=== PATIENT | female | born 1965 | race Caucasian/White ===

== ENCOUNTER 2020-08-24 15:17 | Outpatient (REF) | payer OTHER, SELFPAY ==
[2020-08-24 15:57] LABS: MANUAL DIFF FLAG NO
[2020-08-24 16:05] LABS: Basophils Absolute Auto 0.1 X10*3/uL (0.0-0.2); Eosinophils Absolute Auto 0.2 X10*3/uL (0.0-0.4); Eosinophils Percent Auto 2.6 % (0-4); Hematocrit 43.1 % (37-47); Hemoglobin 14.1 g/dl (12.0-16.0); Imm Gran Abs Auto 0.02 X10*3/uL (0.00-0.03); Imm Gran Pct Auto 0.3 % (0.0-0.4); Lymphocytes Absolute Auto 1.8 X10*3/uL (1.2-4.9); Lymphocytes Percent Auto 28.3 % (20-40); Mean Corpuscular HGB Conc 32.7 g/dl (31.0-35.0); Mean Corpuscular Hemoglobin 30.7 pg (27.0-33.0); Mean Corpuscular Volume 93.7 fL (80-98); Mean Platelet Volume 10.4 fL (9.4-12.3); Monocytes Absolute Auto 0.6 X10*3/uL (0.1-1.2); Monocytes Percent Auto 9.8 % (2-11); Neutrophils Absolute Auto 3.6 X10*3/uL (2.0-8.3); Platelet Count 304 X10*3/uL (160-400); Red Cell Distribution Width 12.4 % (11.0-16.0); White Blood Count 6.3 X10*3/uL (4.8-10.8)
[2020-08-24 16:17] LABS: C Reactive Protein 0.48 mg/dL (< or = 0.50)
[2020-08-24 16:46] LABS: TSH reflex Free T4 1.33 mIU/mL (0.32-4.0)
[2020-08-24 16:49] LABS: Erythrocyte Sedimentation Rate 10 MM/HR (0-20)
[2020-08-26 17:21] LABS: Lyme Abs Screen <0.90 index
== END 2020-08-24 15:18 | disposition home or self-care (01) ==
LOC: HO.LAB 15:17
PROVIDERS: PCP Internal Medicine; Visit Provider Internal Medicine
DX: M79.10 Myalgia, unspecified site (principal); F32.9 Major depressive disorder, single episode, unspecified; M25.50 Pain in unspecified joint; E78.2 Mixed hyperlipidemia; L40.9 Psoriasis, unspecified
CPT/HCPCS: 36415; 84443; 85025; 85652; 86140; 86618

== ENCOUNTER 2020-09-24 14:48 | Outpatient (REF) | payer OTHER, SELFPAY ==
--- NOTE | 2020-09-24 14:53 | US_ITS ---
EXAMINATION: US THYROID CLINICAL INFORMATION: Myalgia, unspecified site. COMPARISON: None TECHNIQUE: Linear transducer perry-scale and color Doppler examination with attention to the region of the thyroid. FINDINGS: SIZE: Measurements of the solitary right thyroid lobe and nodules are given in sagittal, anteroposterior and transverse dimensions respectively. Right Thyroid Lobe: 4.0 x 1.9 x 2.0 cm, volume 7.9 mL. Parenchyma: The gland echotexture is homogeneous. Thyroid vascularity is increased. Left Thyroid Lobe: Absent. Isthmus: 0.4 cm in maximum AP dimension. RIGHT THYROID LOBE: No nodules. ISTHMUS: There is 1 nodule seen. 1. Location: Right aspect. Size: 1.1 x 0.6 x 1.0 cm. Nodule characteristics: Heterogeneously hypoechoic with smooth margins. No internal calcification. Intranodular flow present. NODES: Small lymph node without pathologic enlargement noted on the right. US/US thyroid IMPRESSION: Increased vascularity of the right thyroid lobe. Correlate with thyroid function. There is no left lobe seen. Solitary nodule in the thyroid isthmus measuring up to 1.1 cm. Fine-needle aspiration could be considered, otherwise suggest 12-24 month follow-up.
== END 2020-09-24 14:49 | disposition home or self-care (01) ==
LOC: HO.US 14:48
PROVIDERS: PCP Internal Medicine; Visit Provider Internal Medicine
DX: E03.1 Congenital hypothyroidism without goiter (principal); E78.2 Mixed hyperlipidemia; F32.9 Major depressive disorder, single episode, unspecified; M25.50 Pain in unspecified joint; M79.10 Myalgia, unspecified site
CPT/HCPCS: 76536

== ENCOUNTER → 2020-10-07 11:13 | Outpatient (BNVA) | payer OTHER, SELFPAY | PROVIDERS: PCP Internal Medicine; Referring Provider Internal Medicine; Visit Provider Internal Medicine Endocrinology, Diabetes & Metabolism | DX: Z76.89 Persons encountering health services in other specified circumstances (principal) ==

== ENCOUNTER 2020-10-07 12:37 | Outpatient (REF) | payer OTHER, SELFPAY ==
[2020-10-07 14:57] LABS: Free T4 (Free Thyroxine) 1.03 ng/dL (0.71-1.85); Thyroid Stimulating Hormone 1.48 uIU/mL (0.32-4.0)
[2020-10-08 21:37] LABS: Thyroid Peroxidase Antibodies 12 IU/mL (<9)
[2020-10-09 05:03] LABS: Thyroglobulin Antibodies <1 IU/mL (< or = 1)
== END 2020-10-07 12:38 | disposition home or self-care (01) ==
LOC: HO.10HDL 12:37
PROVIDERS: Visit Provider Internal Medicine Endocrinology, Diabetes & Metabolism
DX: E04.1 Nontoxic single thyroid nodule (principal)
CPT/HCPCS: 36415; 84439; 84443; 86376; 86800

== ENCOUNTER 2020-10-23 16:02 | Outpatient (REF) | payer OTHER, SELFPAY ==
--- NOTE | 2020-10-23 | MM_ITS ---
EXAMINATION: MM SCREENING DIGITAL BREAST TOMOSYNTHESIS, BILATERAL CLINICAL INFORMATION: Screening. Asymptomatic. The lifetime risk of breast cancer based on the Tyrer-Cuzick Model is 25%. COMPARISON: Mammography: 07/23/2019, 07/11/2018, 12/14/2017, 05/12/2017 TECHNIQUE: Digital breast tomosynthesis is performed in both the craniocaudal and mediolateral oblique views along with computer-aided detection (CAD). Synthesized 2D images are generated from the tomosynthesis. FINDINGS: There are scattered areas of fibroglandular density (ACR BI-RADS breast composition Category b). Breast tissue composition borders on predominantly fatty. Background stromal densities are stable. There is no interval mass or architectural abnormality. No abnormal calcifications. Skin contours are smooth. No significant changes. MM/MM tomosynthesis screening BI IMPRESSION: No mammographic evidence of malignancy. ASSESSMENT: BI-RADS 1: Negative RECOMMENDATION: 1. Routine annual mammography screening. 2. The lifetime risk of breast cancer based on the Tyrer-Cuzick Model is 25%. Additional annual adjunct screening with breast MRI may be of benefit in women with a risk score of 20% or greater. This patient's information was entered into a reminder system with a target due date for their next mammogram.
== END 2020-10-23 16:03 | disposition home or self-care (01) ==
LOC: HO.MAMMO 16:02
PROVIDERS: PCP Internal Medicine; Visit Provider Internal Medicine
DX: Z12.31 Encounter for screening mammogram for malignant neoplasm of breast (principal)
CPT/HCPCS: 77063; 77067

== ENCOUNTER 2020-12-03 07:24 | Outpatient (REF) | payer OTHER, SELFPAY ==
[2020-12-03 08:55] LABS: HBS Num1 0.67 mIU/mL (0-7.99); ~Hepatitis B Surface Antibody NONREACTIVE (Nonreactive)
--- NOTE | 2020-12-03 09:06 | P.BOP_ITS ---
Brief Operative Note Date of Service: 12/03/20 Pre-op diagnosis: Isthmic nodule Post-op diagnosis: same Procedure: This procedure was explained to the patient. Alternatives, risks and benefits were discussed. Written consent was obtained. After sterile preparation of the skin, fine-needle aspiration biopsy of isthmic thyroid nodule, size 1.1 x 0.6 x 1.0 cm was performed under direct ultrasound guidance to confirm accurate needle placement. Two passes were performed with 27 gauge needles. initial passes were only blood, 3 extra passess were performed with 25 gauge needles. Sample was submitted to cytology, initial cytology reading was adequate. 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 Patient tolerated procedure well. Aftercare instructions were provided. Impression: uncomplicated fine-needle aspiration biopsy of ------ thyroid nodule under direct ultrasound guidance. Surgeon: Theresa Hinds MD Anesthesia: local (Lidocaine 1% 2 ml) Estimated blood loss (mL): 0 Condition: stable Disposition: same day
[2020-12-05 18:52] LABS: TS Negative Control Passed; TS Panel A 0; TS Panel B 0; TS Positive Control Passed; TSpotTB Negative (SeeBelow)
== END 2020-12-03 07:25 | disposition home or self-care (01) ==
LOC: HO.US 07:24
PROVIDERS: PCP Internal Medicine; Referring Provider Internal Medicine; Visit Provider Internal Medicine Endocrinology, Diabetes & Metabolism
DX: Z01.84 Encounter for antibody response examination (principal); Z11.1 Encounter for screening for respiratory tuberculosis; E04.1 Nontoxic single thyroid nodule
CPT/HCPCS: 10005; 36415; 86481; 86706; 88172; 88173; 88177; 88305

== ENCOUNTER → 2020-12-11 09:06 | Outpatient (BNVA) | payer OTHER, SELFPAY | PROVIDERS: PCP Internal Medicine; Visit Provider Internal Medicine Endocrinology, Diabetes & Metabolism ==

== ENCOUNTER 2021-03-22 15:26 | Outpatient (REF) | payer OTHER, SELFPAY ==
--- NOTE | ~2021-03-22 | XR_ITS ---
EXAMINATION: XR FOOT, RIGHT CLINICAL INFORMATION: Pain COMPARISON: None TECHNIQUE: AP, lateral, and oblique views of the right foot. FINDINGS: Bone alignment is normal. No fracture or dislocation is seen. There is mild joint space narrowing at the first MTP joint. Joint spaces are otherwise normal. Soft tissues are normal. XR/XR foot RT min 3V IMPRESSION: Mild joint space narrowing at the first MTP joint.
== END 2021-03-22 15:27 | disposition home or self-care (01) ==
LOC: HO.HMGCX 15:26
PROVIDERS: PCP Internal Medicine; Visit Provider Hospitalist
DX: M79.671 Pain in right foot (principal)
CPT/HCPCS: 73630

== ENCOUNTER → 2021-04-26 07:19 | Outpatient (REF) | payer OTHER, SELFPAY ==
--- NOTE | 2021-04-26 07:24 | CA_ITS ---
Transthoracic Echocardiogram Patient (Last, First, Middle): Pham Vu A Gender: Female Date of : 1965 Age: 55 Procedure Date: 04/26/2021 Procedure Type: Transthoracic Echocardiogram Location: OP Height: 165.1 cm Weight: 86.18 kg BSA: 1.94 m2 Heart Rate: bpm BP: 128 / 84 mmHg Naturopathic Oncology Provider: Referring MD: Jarad Acharya DO Symptoms: R00.2 - Palpitations Study Quality: Good ECG Rhythm: Sinus Conclusions: - The left ventricular systolic function is normal. The visually estimated ejection fraction is between 60-65%. - No obvious valvular pathology seen on this study. Findings Left Ventricle Normal left ventricular cavity size. There is normal left ventricular wall thickness. The left ventricular systolic function is normal. The visually estimated ejection fraction is between 60-65%. There is no evidence of regional wall motion abnormalities. Diastolic function is normal for age. Right Ventricle Normal right ventricular cavity size and systolic function. Atria The left atrium is normal in size. The right atrium is normal in size. Aortic Valve There is a normal trileaflet aortic valve. There is no aortic valve stenosis. There is no aortic valve regurgitation. Mitral Valve The mitral valve appears normal. There is no mitral valve regurgitation. There is no mitral valve stenosis. Pulmonic Valve The pulmonic valve was not well visualized. Tricuspid Valve Normal tricuspid valve structure. There is trace tricuspid valve regurgitation. The pulmonary artery systolic pressure is normal. Great Vessels The aortic annulus, sinuses of valsalva, asc aorta, and aortic arch are normal in size. Venous The inferior vena cava is mildly dilated and collapses greater than 50% with inspiration. Pericardium/Pleural There is no evidence of pericardial effusion. Prior Study Comparison No significant change compared to prior study dated: 08/25/2004. Recommendations, Care & Conclusions No obvious valvular pathology seen on this study. Measurements 2D Linear Measurements RVIDd: 2.89 RVIDd Index: 1.49 IVSd: 0.99 0.6-0.9/0.6-1.0 cm LVIDd: 5.01 3.9-5.3/4.2-5.9 cm LVIDd Index: 2.58 2.4-3.2/2.2-3.1 cm/m2 LVIDs: 2.77 2.0-3.6 cm LVPWd: 0.88 0.7-1.1 cm Ao Root: 2.60 2.1-3.5 cm LA Diam: 4.00 2.7-3.8/3.0-4.0 cm LAIDs Index: 2.06 1.5-2.3 cm/m2 LV Mass: 208.94 67-162/88-224 g LV Mass Index: 107.70 43-95/49-115 g/m2 LVOT Diam: 2.10 3.0+(-)1.3 cm 2D Systolic Function EF 4C: 64.10 >55% EF 2C: 70.30 >55% EF BiP: 66.30 >55% Mitral Valve MV Pk E: 0.59 MV PK A: 0.57 MV Decel Time: 295.00 E/A: 1.00 E'Lateral: 10.20 E'Medial: 8.59 E/E' Med: 6.80 E/E' Lat: 5.80 Aortic Valve AoV Pk Nicholas: 1.13 AoV Mn Nicholas: 0.76 AoV VTI: 0.22 AoV Pk Grad: 5.00 Aov Mn Grad: 3.00 BRET Cont.VTI: 2.78 LVOT LVOT Pk Nicholas: 0.93 LVOT Mn Nicholas: 0.61 LVOT VTI: 0.18 LVOT Pk Grad: 3.00 LVOT Mn Grad: 2.00 LVOT Diam: 2.10 LVOT Area: 3.46 Diastolic Function MV Pk E: 0.59 MV Pk A: 0.57 E/A: 1.00 E'Medial: 8.59 E/E' Med: 6.80 E' Laterial: 10.20 E/E' Lat: 5.80 Tricuspid Valve TR Pk Nicholas: 2.42 TR Pk Grad: 23.00 RA Press: 3.00 RVSP: 26.00 Great Vessels Aorta Ao Root-2D: 2.60 2.0-3.7 cm Ao Asc: 3.10 2.1-3.4 cm Ao Arch: 2.80 Updated in Other Vendor System with Status of Final Paul Patel MD electronically signed on 04/26/2021 9:15:44 AM with status of Final
--- NOTE | 2021-04-26 08:00 | ECG_ITS ---
Hook-up date: 2021-04-26 08:15:00 Duration: 47:36:00 Test Indications: PALPITATIONS Medications: [id number] QRS complexes 8 Ventricular ectopics which represent <1 % of total QRS comp. 41 Supraventricular ectopics which represent <1 % of total QRS comp. * Paced QRS complexs which represent % of total QRS comp. VENTRICULAR ECTOPY 8 Isolated 0 Bigeminal Cycles 0 Couplets 0 Runs 0 Beats in Runs * Beats LONGEST at * BPM at :: -- * Beats FASTEST at * BPM at :: -- SUPRAVENTRICULAR ECTOPY 38 Isolated 0 Couplets 1 Runs 3 Beats in Runs 3 Beats LONGEST at 192 BPM at 16:28:38 2021-04-26 3 Beats FASTEST at 192 BPM at 16:28:38 2021-04-26 HEART RATES 49 MIN at 04:35:54 2021-04-27 75 AVG 130 MAX at 07:41:05 2021-04-27 LONGEST RR 1.2400 secs at 04:35:51 2021-04-27 S-T LEVELS Channel 1 - 128 mm at 08:15:00 2021-04-26 - 128 mm at 08:15:00 2021-04-26 Channel 2 - 128 mm at 08:15:00 2021-04-26 - 128 mm at 08:15:00 2021-04-26 Channel 3 - 128 mm at 02:73:41 -- - 128 mm at 02:73:41 Basic rhythm Normal sinus rhythm No long pause or profound bradycardia Rare ectopics Patient reported events were not marked but no significant arrhythmias noted at the time reported Referred By: Jarad Acharya Overread By: RANJIT LOZANO MD
== END ==
LOC: HO.CARD 07:19
PROVIDERS: Visit Provider Hospitalist
DX: R00.2 Palpitations (principal)
CPT/HCPCS: 93225; 93226; 93306

== ENCOUNTER 2021-11-01 14:28 | Outpatient (REF) | payer OTHER, SELFPAY | END 2021-11-01 14:29 | disposition home or self-care (01) | LOC: HO.LNP 14:28 | PROVIDERS: Visit Provider Physician Assistant Medical | DX: Z20.822 Contact with and (suspected) exposure to COVID-19 (principal); J01.00 Acute maxillary sinusitis, unspecified; J32.1 Chronic frontal sinusitis | CPT/HCPCS: U0003; U0005 ==

== ENCOUNTER 2021-12-01 15:28 | Outpatient (REF) | payer OTHER, SELFPAY ==
--- NOTE | ~2021-12-01 | MM_ITS ---
EXAMINATION: MM SCREENING DIGITAL BREAST TOMOSYNTHESIS, BILATERAL CLINICAL INFORMATION: Screening. Asymptomatic. The lifetime risk of breast cancer based on the Tyrer-Cuzick Model is 16%. COMPARISON: Mammography: 10/23/2020, 07/23/2019, 07/11/2020 TECHNIQUE: Digital breast tomosynthesis is performed in both the craniocaudal and mediolateral oblique views along with computer-aided detection (CAD). Synthesized 2D images are generated from the tomosynthesis. FINDINGS: There are scattered areas of fibroglandular density (ACR BI-RADS breast composition Category b). There are no significant masses, abnormal calcifications, or other abnormalities. Parenchymal pattern is similar to prior studies. There is no developing density or architectural abnormality. The axilla and skin contours are unremarkable. No significant changes. MM/MM tomosynthesis screening BI IMPRESSION: No mammographic evidence of malignancy. ASSESSMENT: BI-RADS 1: Negative RECOMMENDATION: Routine annual mammography screening. This patient's information was entered into a reminder system with a target due date for their next mammogram.
== END 2021-12-01 15:29 | disposition home or self-care (01) ==
LOC: HO.MAMMO 15:28
PROVIDERS: Visit Provider Internal Medicine
DX: Z12.31 Encounter for screening mammogram for malignant neoplasm of breast (principal)
CPT/HCPCS: 77063; 77067

== ENCOUNTER 2022-01-27 08:00 | Outpatient (REF) | payer OTHER, SELFPAY ==
[2022-01-27 09:12] LABS: Anion Gap 15 (12-20); Blood Urea Nitrogen 16 mg/dL (9-16); Calcium 9.9 mg/dL (8.4-10.2); Carbon Dioxide 23 mmol/L (22-29); Chloride 107 mmol/L (96-108); Cholesterol 235 mg/dL; Estimated Glomerular Filt Rate > 60; Glucose Fasting 89 mg/dL (60-99); HDL Cholesterol 73 mg/dL; LDL Cholesterol Calculated 147 mg/dl; Potassium 4.7 mmol/L (3.3-5.1); Sodium 140 mmol/L (135-145); Triglycerides 79 mg/dL
[2022-01-27 09:37] LABS: Free T4 (Free Thyroxine) 0.91 ng/dL (0.71-1.85); Thyroid Stimulating Hormone 2.13 uIU/mL (0.32-4.0)
[2022-01-27 15:00] LABS: Vitamin D 25-OH Total 23.3 ng/mL (>30)
[2022-01-28 09:20] LABS: Thyroid Peroxidase Antibodies 13 IU/mL (<9)
== END 2022-01-27 08:01 | disposition home or self-care (01) ==
LOC: HO.LAB 08:00
PROVIDERS: PCP Internal Medicine; Visit Provider Internal Medicine
DX: Z00.01 Encounter for general adult medical examination with abnormal findings (principal); I10 Essential (primary) hypertension; E78.5 Hyperlipidemia, unspecified; E04.1 Nontoxic single thyroid nodule; E06.3 Autoimmune thyroiditis; Z78.0 Asymptomatic menopausal state
CPT/HCPCS: 36415; 80048; 80061; 82306; 84439; 84443; 86376

== ENCOUNTER 2022-04-15 07:35 | Outpatient (REF) | payer OTHER, SELFPAY ==
[2022-04-15 08:45] LABS: Alanine Aminotransferase 42 U/L (0-31); Anion Gap 15 (12-20); Aspartate Amino Transferase 26 U/L (5-31); Blood Urea Nitrogen 17 mg/dL (9-16); Calcium 10.2 mg/dL (8.4-10.2); Carbon Dioxide 24 mmol/L (22-29); Chloride 105 mmol/L (96-108); Estimated Glomerular Filt Rate > 60; Glucose Fasting 95 mg/dL (60-99); Potassium 4.5 mmol/L (3.3-5.1); Sodium 139 mmol/L (135-145)
[2022-04-15 09:03] LABS: Free T4 (Free Thyroxine) 0.97 ng/dL (0.71-1.85)
[2022-04-15 09:06] LABS: Thyroid Stimulating Hormone 2.35 uIU/mL (0.32-4.0); Vitamin D 25-OH Total 74.8 ng/mL (>30)
== END 2022-04-15 07:36 | disposition home or self-care (01) ==
LOC: HO.LAB 07:35
PROVIDERS: Internal Medicine Endocrinology, Diabetes & Metabolism; PCP Internal Medicine; Visit Provider Internal Medicine
DX: E55.9 Vitamin D deficiency, unspecified (principal); R74.8 Abnormal levels of other serum enzymes; I10 Essential (primary) hypertension; E04.1 Nontoxic single thyroid nodule
CPT/HCPCS: 36415; 80048; 82306; 84439; 84443; 84450; 84460

== ENCOUNTER 2022-05-31 12:59 | Outpatient (REF) | payer OTHER, SELFPAY ==
--- NOTE | ~2022-05-31 | US_ITS ---
EXAMINATION: US THYROID CLINICAL INFORMATION: Nontoxic multinodular goiter. COMPARISON: Ultrasound-guided thyroid biopsy 12/03/2020. Thyroid ultrasound 09/24/2020. TECHNIQUE: Linear transducer grayscale and color Doppler examination with attention to the region of the thyroid. FINDINGS: SIZE: Measurements of the thyroid lobes and nodules are given in sagittal, anteroposterior and transverse dimensions respectively. Right Thyroid Lobe: 4.2 x 2.0 x 1.5 cm, volume 6.6 mL. Previously 4.0 x 1.9 x 2.0 cm, volume 7.9 mL. Parenchyma: The gland echotexture is homogeneous. Thyroid vascularity is normal. Left Thyroid Lobe: Absent. Isthmus: 0.4 cm in maximum AP dimension. Previously 0.4 cm. Estimated total number of nodules greater than or equal to 1 cm: 0. [employer] nodules are described as follows: 1. Location: Isthmus. Size: 0.8 x 0.5 x 0.8 cm, volume 0.17 mL. Previously: 1.1 x 0.6 x 1.0 cm, volume 0.35 mL. Nodule characteristics: Composition: Mixed cystic and solid (1). Echogenicity: Hyperechoic (1). Shape: Not taller than wide (0). Margins: Smooth (0). Echogenic Foci: None (0). ACR TI-RADS total points: 2 ACR TI-RADS category: 2 Significant change in size (>/= 20% in 2 dimensions and minimal increase of 2 mm or 50% or greater increase in volume): No Change in features: No Change in ACR TI-RADS risk category: No NODES: No lymphadenopathy is seen in the tissue surrounding the thyroid gland. US/US thyroid IMPRESSION: Solitary thyroid nodule which was previously biopsied. This appears somewhat decreased in size from prior. No specific follow-up recommended based on this imaging alone. Correlate with previous biopsy results. No new nodules are seen. ACR TI-RADS RECOMMENDATION REFERENCE: Ultrasound-guided fine-needle aspiration, followup ultrasound, no further follow up. * TR1 (0 point) and TR 2 (2 points): No FNA or follow up * TR3 (3 points): FNA if more than or equal to 2.5 cm in maximum dimension, followup ultrasound in 1, 3 and 5 years if 1.5 to 2.4 cm in maximum dimension. * TR4 (4-6 points): FNA if more than or equal to 1.5 cm in maximum dimension, followup ultrasound in 1, 2, 3 and 5 years if 1 to 1.4 cm in maximum dimension. * TR5 (more than or equal to 7 points): FNA if more than or equal to 1 cm in maximum dimension, followup ultrasound every year for 5 years if 0.5 to 0.9 cm in maximum dimension. * TR3, TR4 or TR5 nodules that are below the size threshold for follow up receive no follow up.
== END 2022-05-31 13:00 | disposition home or self-care (01) ==
LOC: HO.HMGCX 12:59
PROVIDERS: Visit Provider Internal Medicine Endocrinology, Diabetes & Metabolism
DX: E04.2 Nontoxic multinodular goiter (principal)
CPT/HCPCS: 76536

== ENCOUNTER 2022-06-15 13:04 | Outpatient (REF) | payer OTHER, SELFPAY ==
--- NOTE | ~2022-06-15 | XR_ITS ---
EXAMINATION: XR FOOT, LEFT CLINICAL INFORMATION: M79.675 - Pain in left toe(s) COMPARISON: None TECHNIQUE: AP, lateral, and oblique views of the left foot. FINDINGS: No fracture, dislocation, destructive process. Normal bony mineralization. The subtalar joint appears normal. The retrocalcaneal recess is preserved. There is moderate plantar calcaneal spur. Mild spurring is also present at the posterior superior tarsal navicular. There are mild degenerative changes first MTP. No erosive change or para-articular mineralization. The interphalangeal joints are unremarkable. XR/XR foot LT min 3V IMPRESSION: -No acute or healing fracture, dislocation, destructive process. -Plantar calcaneal spur. Dorsal spurring tarsal navicular. -Mild osteoarthritic changes first MTP.
== END 2022-06-15 13:05 | disposition home or self-care (01) ==
LOC: HO.HMGCX 13:04
PROVIDERS: PCP Internal Medicine; Visit Provider Physician Assistant
DX: M79.675 Pain in left toe(s) (principal)
CPT/HCPCS: 73630

== ENCOUNTER 2022-12-07 15:42 | Outpatient (REF) | payer OTHER, SELFPAY ==
--- NOTE | ~2022-12-07 | MM_ITS ---
EXAMINATION: MM SCREENING DIGITAL BREAST TOMOSYNTHESIS, BILATERAL CLINICAL INFORMATION: Screening. Asymptomatic. The lifetime risk of breast cancer based on the Tyrer-Cuzick Model is 19.5%. COMPARISON: Mammography: December 01, 2021 and studies dating back to April 14, 2016 TECHNIQUE: Digital breast tomosynthesis is performed in both the craniocaudal and mediolateral oblique views along with computer-aided detection (CAD). Synthesized 2D images are generated from the tomosynthesis. FINDINGS: The breasts are almost entirely fatty (ACR BI-RADS breast composition Category a). There are no significant masses, abnormal calcifications, or other abnormalities. MM/MM tomosynthesis screening BI IMPRESSION: No significant changes from prior exam. ASSESSMENT: BI-RADS 1: Negative RECOMMENDATION: Routine annual mammography screening. This patient's information was entered into a reminder system with a target due date for their next mammogram.
== END 2022-12-07 15:43 | disposition home or self-care (01) ==
LOC: HO.MAMMO 15:42
PROVIDERS: PCP Internal Medicine; Visit Provider Internal Medicine
DX: Z12.31 Encounter for screening mammogram for malignant neoplasm of breast (principal)
CPT/HCPCS: 77063; 77067

== ENCOUNTER 2023-02-04 09:47 | Outpatient (REF) | payer OTHER, SELFPAY ==
[2023-02-04 11:27] LABS: Alanine Aminotransferase 31 U/L (0-31); Anion Gap 11 (12-20); Aspartate Amino Transferase 20 U/L (5-31); Blood Urea Nitrogen 18 mg/dL (9-16); Calcium 9.3 mg/dL (8.4-10.2); Carbon Dioxide 26 mmol/L (22-29); Chloride 110 mmol/L (96-108); Cholesterol 223 mg/dL; Estimated Glomerular Filt Rate > 60; Glucose Fasting 92 mg/dL (60-99); HDL Cholesterol 62 mg/dL; LDL Cholesterol Calculated 143 mg/dl; Potassium 4.3 mmol/L (3.3-5.1); Sodium 143 mmol/L (135-145); Triglycerides 94 mg/dL
[2023-02-04 11:41] LABS: Free T4 (Free Thyroxine) 0.96 ng/dL (0.71-1.85); Thyroid Stimulating Hormone 1.45 uIU/mL (0.32-4.0)
== END 2023-02-04 09:48 | disposition home or self-care (01) ==
LOC: HO.LAB 09:47
PROVIDERS: PCP Internal Medicine; Visit Provider Internal Medicine
DX: E04.1 Nontoxic single thyroid nodule (principal); E06.3 Autoimmune thyroiditis; E66.9 Obesity, unspecified; E78.5 Hyperlipidemia, unspecified; I10 Essential (primary) hypertension; E03.9 Hypothyroidism, unspecified; Z78.0 Asymptomatic menopausal state
CPT/HCPCS: 36415; 80048; 80061; 82306; 84439; 84443; 84450; 84460

== ENCOUNTER 2023-02-23 08:49 | Outpatient (REF) | payer OTHER, SELFPAY ==
--- NOTE | ~2023-02-23 | US_ITS ---
EXAMINATION: US ABDOMEN COMPLETE CLINICAL INFORMATION: Right upper quadrant pain. COMPARISON: Ultrasound abdomen complete 08/31/2018. TECHNIQUE: Real-time imaging of the abdominal viscera. FINDINGS: PANCREAS: Normal. ABDOMINAL AORTA: The proximal, mid, and distal segments are normal in caliber. INFERIOR VENA CAVA: Visualized portions are normal. LIVER: The liver is normal in size. The liver contour is normal. Increased echogenicity. No focal hepatic lesion. There is no intrahepatic biliary duct dilatation seen. GALLBLADDER: Surgically absent. COMMON BILE DUCT: Normal in caliber measuring 0.6 cm in diameter. RIGHT KIDNEY: Normal. No hydronephrosis. No renal calculi or focal parenchymal lesions. The kidney measures 11.5 cm in maximum dimension. LEFT KIDNEY: Normal. No hydronephrosis. No renal calculi or focal parenchymal lesions. The kidney measures 10.4 cm in maximum dimension. SPLEEN: Normal. The spleen measures 10.9 cm in maximum dimension. FREE FLUID: None. US/US abdomen complete IMPRESSION: 1. Increased echogenicity of the liver is nonspecific and could be seen in the setting of hepatic steatosis or hepatocellular disease. Correlate with liver function tests. 2. Status post cholecystectomy.
== END 2023-02-23 08:50 | disposition home or self-care (01) ==
LOC: HO.HMGCX 08:49
PROVIDERS: PCP Internal Medicine; Visit Provider Internal Medicine
DX: R10.11 Right upper quadrant pain (principal)
CPT/HCPCS: 76700

== ENCOUNTER 2023-11-03 08:34 | Outpatient (AMB) | payer OTHER, SELFPAY ==
[2023-11-03 08:33] VITALS: BP 120/82; PULSE 69; TEMP 36.3; O2SAT 97; BMI 33.8
--- NOTE | 2023-11-03 08:33 | MHC.OFFWIV ---
Intake Vital Signs 11/03/23 08:33 Height 5 ft 4 in Weight 197 lb BMI 33.8 BP 120/82 Blood Pressure Location Lt brachial Position Sitting Pulse 69 Pulse Source Pulse Oximeter Temp 97.3 F Temp Source Temporal Artery Scan Pulse Oximetry (%) 97 Oxygen Delivery Method Room Air Intake Visit Reasons: EP sinus infection/pressure [id number] Intake Note: pt is here today for sinus infection pressure started last monday Patient Tobacco Use Status: Never used Tobacco Allergies kiwi [KIWI] Allergy (Unknown, Verified 11/03/23 08:47) SHORTNESS OF BREATH Penicillins [PENICILLINS] Allergy (Unknown, Verified 11/03/23 08:47) RASH scallops [SCALLOPS] Allergy (Unknown, Verified 11/03/23 08:47) SHORTNESS OF BREATH Sulfa (Sulfonamide Antibiotics) [Sulfa(Sulfonamide Antibiotics)] Allergy (Unknown, Verified 11/03/23 08:47) UNKNOWN, rash, rash Do you need a note to return to daycare/school/sports/work: Yes HPI HPI Comments History of Present Illness Details Sick for over a week Started with URI symptoms She said not resolving Complaint is nasal ongestion, sinus pressure and bilateral ear blockage Pain in sinuses is 3/10 She has tried OTC medicines without relief She had minimal relief with meds Uses allergy shots which helps with her sinus issues but not this time COVId test x 2 at home negative COugh with some phlegm No fever or chills PFSH Medical History (Updated 11/03/23 @ 09:02 by Niya Chance PA-C) Arthralgia Rosacea Dyslipidemia Essential hypertension Elevated liver enzymes Greater trochanteric bursitis of right hip Gastritis History of postmenopausal bleeding Menopause Dimitry's disease Screening-pulmonary TB Immunity status testing Thyroid nodule Chronic pansinusitis Obesity Atrophic vaginitis Migraine Syrinx of spinal cord Meningioma 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 Myalgia Pain, joint, multiple sites COVID-19 virus infection Nephrolithiasis Mixed hyperlipidemia Psoriasis of scalp Surgical History Hx laparoscopic cholecystectomy Family History Father Brain hemangioma Mother Hereditary breast and ovarian cancer syndrome associated with mutation in BRCA2 gene AAA (abdominal aortic aneurysm) Maternal Grandmother Breast cancer Paternal Grandfather Throat cancer Paternal Grandmother CVA (cerebral vascular accident) Brother Multiple sclerosis HTN (hypertension) Social History Housing: House Alcohol intake: never Patient Tobacco Use Status: Never used Tobacco e-Cigarette/Vaping Use: Never Used Second Hand Smoke Exposure: No Current occupational status: employed 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 [employer] Current occupational exposures/hazards: No Cognitive needs: No Hearing needs: No Vision needs: Yes Review of Systems Const Denies body aches, Denies chills, Reports fatigue and Denies fever(s) Eyes Denies blurry vision ENT Reports otalgia, Reports nasal congestion, Reports nasal discharge, Reports sinus pain, Reports sinus pressure, Denies sore throat and Denies throat swelling Card Denies chest pain and Denies dyspnea Resp Reports chest congestion, Reports cough and Denies dyspnea Endo Reports fatigue Aller/Immun Denies throat swelling Physical Exam Vital Signs: Last Vital Signs Temp 97.3 F 11/03/23 08:33 Pulse 69 11/03/23 08:33 BP 120/82 11/03/23 08:33 Pulse Ox 97 11/03/23 08:33 Oxygen Delivery Method Room Air 11/03/23 08:33 BMI result Body Mass Index 33.8 General: Non-toxic, NAD. Speaking full sentences. Skin: Warm dry throughout Eye: EOMI HENT: Airway patent. Uvula midline. No pharyngeal erythema or edema. No FOREIGN LANGUAGES DEPARTMENT CHAIR. Bilateral canals clear. TM non-erythematous, non-bulging. + fluid behind bilateral TMs, worse on L than R. No TM perforation or hemotympanum noted. Lymph: No lymphdenopathy Respiratory: CTA bilaterally. No wheezes, rales or rhonchi Cardiac: RRR. No murmur MSK: Full ROM extremities. Neurology: A/O. No aphasia or facial droop. Gait without abnormality Psych: Good mood and affect Assessment & Plan Assessment & Plan (1) Sinusitis: Code(s): J32.9 - Chronic sinusitis, unspecified Qualifiers: Sinusitis location: unspecified location Chronicity: acute Recurrence: non-recurrent Qualified Code(s): J01.90 - Acute sinusitis, unspecified Plan: Patient seen and evaluated. Doxycycline and nasal steroid for symptoms F/U with PCP Lungs CTA Patient gave verbal understanding and had no additional questions or concerns at time of discharge All questions answered Medications: New doxycycline monohydrate 100 mg PO BID 14 caps 0RF J32.9 - Chronic sinusitis, unspecified ipratropium bromide administer into each nostril 2 sprays intranasal BID-TID PRN 30 mL 0RF allergy symptoms J32.9 - Chronic sinusitis, unspecified Coding Level of Care Code Est Pt Level 3 (70398) Diagnoses Acute non-recurrent sinusitis, unspecified location J01.90 Sinusitis location: unspecified location Chronicity: acute Recurrence: non-recurrent
== END 2023-11-03 09:13 | disposition home or self-care (01) ==
PROVIDERS: PCP Internal Medicine; Visit Provider Physician Assistant
DX: J01.90 Acute sinusitis, unspecified (principal)
CPT/HCPCS: 99213

== ENCOUNTER 2023-11-29 08:04 | Outpatient (AMB) | payer OTHER, SELFPAY ==
[2023-11-29 08:06] VITALS: BP 122/78; PULSE 78; TEMP 37.1; O2SAT 98; BMI 32.8
--- NOTE | 2023-11-29 08:06 | MHC.OFFWIV ---
Intake Vital Signs 11/29/23 08:06 Height 5 ft 4 in Weight 191 lb BMI 32.8 BP 122/78 Blood Pressure Location Lt brachial Position Sitting Pulse 78 Pulse Source Pulse Oximeter Temp 98.8 F Temp Source Oral Pulse Oximetry (%) 98 Intake Visit Reasons: EP Sore Throat (masked) Intake Note: pt is here for c.o sore throat for a few days, states shes had neg covid test at home Patient Tobacco Use Status: Never used Tobacco Allergies kiwi [KIWI] Allergy (Unknown, Verified 11/29/23 08:39) SHORTNESS OF BREATH Penicillins [PENICILLINS] Allergy (Unknown, Verified 11/29/23 08:39) RASH scallops [SCALLOPS] Allergy (Unknown, Verified 11/29/23 08:39) SHORTNESS OF BREATH Sulfa (Sulfonamide Antibiotics) [Sulfa(Sulfonamide Antibiotics)] Allergy (Unknown, Verified 11/29/23 08:39) UNKNOWN, rash, rash Medication List - Last Reconciled 11/29/23 by EVELYN Mcgee-TYESHA cetirizine (Zyrtec) 10 mg PO DAILY PRN cholecalciferol (vitamin D3) 25 mcg PO DAILY doxycycline hyclate 100 mg PO BID 7 days duloxetine 20 mg PO DAILY estradiol 0.01%(0.1mg/gram) 1 g vaginal 2XW ibuprofen 800 mg PO TID ipratropium bromide 2 sprays intranasal BID-TID PRN lisinopril 5 mg PO DAILY omeprazole 20 mg PO DAILY Do you need a note to return to daycare/school/sports/work: Yes HPI HPI Comments History of Present Illness Details Here today with complaints of sore throat since Monday. Reports initially started as a sore throat headache and bilat ear pain. Since onset symptoms have become worse. Exposed to sick contacts at work. Does note that she was treated with doxycycline about 3 weeks ago for a sinus infection. Although symptoms did not improve she does report some bloody nasal drainage. Using [id number]-[id number] analgesics to help with pain with some relief. 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 Myalgia Pain, joint, multiple sites COVID-19 virus infection Nephrolithiasis Mixed hyperlipidemia Psoriasis of scalp Surgical History Hx laparoscopic cholecystectomy Family History Father Brain hemangioma Mother Hereditary breast and ovarian cancer syndrome associated with mutation in BRCA2 gene AAA (abdominal aortic aneurysm) Maternal Grandmother Breast cancer Paternal Grandfather Throat cancer Paternal Grandmother CVA (cerebral vascular accident) Brother Multiple sclerosis HTN (hypertension) Social History Housing: House Alcohol intake: never Patient Tobacco Use Status: Never used Tobacco e-Cigarette/Vaping Use: Never Used Second Hand Smoke Exposure: No Current occupational status: employed 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 [employer] Current occupational exposures/hazards: No Cognitive needs: No Hearing needs: No Vision needs: Yes Review of Systems Const All systems reviewed & are unremarkable except as noted in HPI and below Physical Exam Vital Signs: Last Vital Signs Temp 98.8 F 11/29/23 08:06 Pulse 78 11/29/23 08:06 BP 122/78 11/29/23 08:06 Pulse Ox 98 11/29/23 08:06 BMI result Body Mass Index 32.8 Const Other: Awake alert mildly ill-appearing Conjunctiva mildly injected TM intact with serous effusions bilat worse on the left Purulent drainage bilat nares, no sinus tenderness with palpation Exudative pharyngitis uvula midline able to manage secretions Regular rate rhythm Lung sounds clear bilat Results AMB Rapid Strep AMB Rapid Strep Negative Last Edit by Tien Huertas CMA on 11/29/23 08:33 Assessment & Plan Assessment & Plan (1) Pharyngitis: Code(s): J02.9 - Acute pharyngitis, unspecified Qualifiers: Pharyngitis/tonsillitis etiology: streptococcus Qualified Code(s): J02.0 - Streptococcal pharyngitis Plan: . (2) Sinusitis: Code(s): J32.9 - Chronic sinusitis, unspecified Qualifiers: Sinusitis location: unspecified location Chronicity: acute Recurrence: recurrent Qualified Code(s): J01.91 - Acute recurrent sinusitis, unspecified Plan: . Plan Despite negative strep screen today, given exam we will treat with doxycycline. Okay to use kihv-oeg-[id number] analgesics for pain. Orders: Orders AMB Rapid Strep Screen Today Z13.9 - Encounter for screening, unspecified Medications: New doxycycline hyclate 100 mg PO BID 7 days 14 caps 0RF Coding Level of Care Code Est Pt Level 3 (80489) Diagnoses Pharyngitis due to Streptococcus species J02.0 Pharyngitis/tonsillitis etiology: streptococcus Acute recurrent sinusitis, unspecified location J01.91 Sinusitis location: unspecified location Chronicity: acute Recurrence: recurrent
== END 2023-11-29 08:51 | disposition home or self-care (01) ==
PROVIDERS: PCP Internal Medicine; Visit Provider Nurse Practitioner Family
DX: J02.0 Streptococcal pharyngitis (principal); J01.91 Acute recurrent sinusitis, unspecified; J02.9 Acute pharyngitis, unspecified
CPT/HCPCS: 87880; 99213

== ENCOUNTER 2023-12-15 | Outpatient (REF) | payer OTHER, SELFPAY ==
[2023-12-15 22:09] LABS: Influenza A PCR POSITIVE (Negative); Influenza B PCR NEGATIVE (Negative); Resp Syncy Virus RNA Qual PCR NEGATIVE (Negative); SARS COV2 PCR INHOUSE NEGATIVE (Negative)
== END 2023-12-15 00:01 | disposition home or self-care (01) ==
LOC: HO.LNP
PROVIDERS: Visit Provider Nurse Practitioner Family
DX: Z11.52 Encounter for screening for COVID-19 (principal); Z20.822 Contact with and (suspected) exposure to COVID-19; R68.89 Other general symptoms and signs
CPT/HCPCS: 0241U

== ENCOUNTER 2023-12-15 15:18 | Outpatient (AMB) | payer OTHER, SELFPAY ==
--- NOTE | 2023-12-15 15:24 | A.OFFPC_ITS ---
Vital Signs 12/15/23 15:26 Height 5 ft 4 in Weight 193 lb 6 oz BMI 33.2 BP 112/62 Blood Pressure Location Rt brachial Position Sitting Pulse 92 Pulse Source Pulse Oximeter Pulse Oximetry (%) 97 Oxygen Delivery Method Room Air Intake Visit Reasons: DAVID from [facility] Intake Note: Patient is here today for transfer of care from [facility]. Complaint of cough and sinus issues Global Consumer [employer] Vice President Required: No Android Ui Developer: Not Required per policy Accompanied by: Self / Same As Patient Allergies kiwi [KIWI] Allergy (Unknown, Verified 12/15/23 15:43) SHORTNESS OF BREATH Penicillins [PENICILLINS] Allergy (Unknown, Verified 12/15/23 15:43) RASH scallops [SCALLOPS] Allergy (Unknown, Verified 12/15/23 15:43) SHORTNESS OF BREATH Sulfa (Sulfonamide Antibiotics) [Sulfa(Sulfonamide Antibiotics)] Allergy (Unknown, Verified 12/15/23 15:43) UNKNOWN, rash, rash Medication List - Last Reconciled 12/15/23 by EVELYN Mcgee- cholecalciferol (vitamin D3) 25 mcg PO DAILY duloxetine 20 mg PO DAILY estradiol 0.01%(0.1mg/gram) 1 g vaginal 2XW ibuprofen 800 mg PO TID ipratropium bromide 2 sprays intranasal BID-TID PRN lisinopril 5 mg PO DAILY omeprazole 20 mg PO DAILY Tobacco use date assessed: 12/15/23 Dental Screening Dental Screen Date: 12/15/23 Did you have a dental visit in the last 12 months?: Yes Did you have a dental problem in the last 6 months where you did not have access to dental care?: No Was dental information given to patient?: Patient has dentist HPI HPI Comments History of Present Illness Details 58-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 ENT active Orthopedics - no longer retail planner due in February 2024 Neurosurgeon - Maria Del Rosario Chopra Karthik (retired), active w/ doc in same group, last visit 2 months ago. Visual vivar [id number], MRI annually. Optho - needs [facility]. [place]; nothing at [facility]. made aware of [facility]. Allergy immunology for allergy shots Health maintenance Colonoscopy 2017 Dr. Cuello with hyperplastic polyp, repeat 10 years (2027) Mammogram due; need to r/s DEXA - 12/19/2017 Vaccines - due for Shingles; COVID x 3, Flu UTD, Tdap. Here today with URI symptoms. Wann better for 1 week after last round of doxy given for strep throat Then developed a cough, tickle in throat ff'd by headache, blocked ears, sinus pressures. No bloody drainage from nose like last time. Throat is not sore like last time. 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 Sx were well controlled. However over the last few months she is noticed uptake in her symptoms. Despite the PHQ being a for the depressive symptoms are prominent. She has restarted care with her counselor. She denies SI and HI. Denies off medication. Find star in her family. History of Dimitry's and vitamin-D deficiency. Due for labs. Wonders about increase or change in her medications to help control her depressive symptoms. 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 Myalgia Pain, joint, multiple sites COVID-19 virus infection Nephrolithiasis Mixed hyperlipidemia Psoriasis of scalp Surgical History Hx laparoscopic cholecystectomy Family History Father Brain hemangioma Mother Hereditary breast and ovarian cancer syndrome associated with mutation in BRCA2 gene AAA (abdominal aortic aneurysm) Maternal Grandmother Breast cancer Paternal Grandfather Throat cancer Paternal Grandmother CVA (cerebral vascular accident) Brother Multiple sclerosis HTN (hypertension) Social History Housing: House Alcohol intake: current Alcohol intake frequency: a few times a month Patient Tobacco Use Status: Never used Tobacco e-Cigarette/Vaping Use: Never Used Second Hand Smoke Exposure: No service: No Current occupational status: employed 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 1. Little interest or pleasure in doing things: several days 2. Feeling down, depressed, or hopeless: more than half the days 3. Trouble falling or staying asleep, or sleeping too much: not at all 4. Feeling tired or having little energy: several days 5. Poor appetite or overeating: not at all 6. Feeling bad about yourself - or that you are a failure or have let yourself or your family down: not at all 7. Trouble concentrating on things, such as reading the newspaper or watching television: not at all 8. Moving or speaking so slowly that other people could have noticed. Or the opposite - being so fidgety or restless that you have been moving around a lot more than usual: not at all 9. Thoughts that you would be better off or of hurting yourself in some way: not at all Total score: 4 Depression Screening Interpretation: Positive Depression Screening Follow-up: Existing condition and In treatment Depression Screening Done: Yes 70556 - PHQ-9 Billing: Yes Source: Developed by Drs. Pedro Resendez, Celina Quijano, Francisco Root and colleagues, with an educational batool from [employer]. Thrive Questionnaire Date Thrive assessed: 12/15/23 I am a: Patient What is your living situation today?: I have a steady place to live Within the past 12 months, did the food you bought not last and you didn't have the money to get more?: Never true Within the past 12 months, did you worry whether your food would run out before you got money to buy more?: Never true Do you have trouble paying for medicines?: No Do you have trouble getting transportation to medical appointments?: No Do you have trouble paying your heating and electricity bill?: No Do you have trouble taking care of your child, family member or friend?: No Do you have trouble with day-to-day activities such as bathing, preparing meals, shopping, managing finances, etc.?: No Are you currently unemployed and looking for a job?: No Are you interested in more education?: No Currently or been in a relationship where the following occur: no concerns reported THRIVE Score: 0 AUDIT C Alcohol Use Questionnaire (AUDIT-C) 1. How often do you have a drink containing alcohol?: 2-4 times a month 2. How many drinks containing alcohol do you have on a typical day when you are drinking?: 1 or 2 Total Score: 2 HEBERT-7 AMB Questionnaire HEBERT-7 Date HEBERT - 7 assessed: 12/15/23 Feeling nervous, anxious, or on edge: 0 = Not at all Not being able to stop or control worryin = Not at all Worrying too much about different things: 0 = Not at all Trouble relaxin = Not at all Being so restless that it is hard to sit still: 0 = Not at all Becoming easily annoyed or irritable: 0 = Not at all Feeling afraid as if something awful might happen: 0 = Not at all Total HEBERT-7 score (0-4 normal; 5-9 mild; 10-14 moderate; 15-21 severe): 0 Source: Developed by Drs. Pedro Resendez, Celina Quijano, Francisco Root and colleagues, with an educational batool from [employer]. HEBERT-7 Assessment Billing HEBERT-7 Assessment Tool: HEBERT-7 Assessment 63321 Physical exam (Primary Care) Tobacco/Smoking Status: Tobacco use Status Tobacco use date assessed 02/06/23 02/06/23 08:07 Patient Tobacco Use Status Never used Tobacco 11/29/23 08:06 e-Cigarette/Vaping Use Never Used 02/06/23 07:58 Depression Screening Interpretation: Positive Depression Screening Follow-up: Existing condition and In treatment Thrive Assessment: Date of Thrive Assessment Date Thrive assessed 02/06/23 02/06/23 08:07 Currently or been in a relationship where the following occur: no concerns reported Const Other: Awake alert oriented no acute distress TM intact and clear bilat Nares patent bilat, turbinates within normal limits, frontal sinus tenderness bilat with palpation Pharynx within normal limits No cervical adenopathy Regular rate and rhythm Lung sounds clear to auscultation bilat Tearful at times talking about family stressors, appropriate and engaging Assessment and Plan Assessment & Plan (1) MDD (major depressive disorder): Comment: Currently on Cymbalta 20 mg. Active with a counselor. We will check a vitamin- D and thyroid levels and discuss with her after the results are back whether or not we should increase her change her medications. Code(s): F32.9 - Major depressive disorder, single episode, unspecified Qualifiers: Major depression recurrence: recurrent Active/Remission status: currently active Major depression episode severity: moderate Qualified Code(s): F33.1 - Major depressive disorder, recurrent, moderate (2) Osteopenia after menopause: Comment: dexa 2018 femoral neck osteopenia Code(s): M85.80 - Other specified disorders of bone density and structure, unspecified site; Z78.0 - Asymptomatic menopausal state (3) Dimitry's disease: Code(s): E06.3 - Autoimmune thyroiditis (4) Vitamin D deficiency: Code(s): E55.9 - Vitamin D deficiency, unspecified (5) Flu-like symptoms: Comment: Viral swab obtained today. Advised her to check the patient portal for the results. Follow current CDC guidelines should any of these be positive. Deferred on antibiotics as I do not think this is needed. However would entertain giving a cephalosporin p.r.n.. She is aware of a cross sensitivity reaction that can happen with her known allergy to penicillins. Recommend that she continue using the ipratropium bromide nasal spray and start Flonase in addition. Also recommend follow-up with the allergy office to see if missing 1 of her allergy shots has contributed to the recurrence of her symptoms that have been present since October. Code(s): R68.89 - Other general symptoms and signs Plan: This note is constructed using voice recognition software. While every effort has been made to ensure accuracy in document management technician, still errors may have been included Sometimes, these errors may affect the content or meaning of the given sentence . Total time spent caring for the patient today was 60 minutes. This includes time spent before the visit reviewing the chart, time spent during the visit, and time spent after the visit on documentation Orders: Orders XR DEXA axial skeleton Today M85.80 - Other specified disorders of bone density and structure, unspecified site, Z78.0 - Asymptomatic menopausal state TSH reflex Free T4 Today E06.3 - Autoimmune thyroiditis, E55.9 - Vitamin D deficiency, unspecified, F32.9 - Major depressive disorder, single episode, unspecified, M85.80 - Other specified disorders of bone density and structure, unspecified site, Z78.0 - Asymptomatic menopausal state Vitamin D 1,25 dihydroxy Today E06.3 - Autoimmune thyroiditis, F32.9 - Major depressive disorder, single episode, unspecified, M85.80 - Other specified disorders of bone density and structure, unspecified site, Z78.0 - Asymptomatic menopausal state SARS-CoV2/FLU/RSV Today R68.89 - Other general symptoms and signs Free T4 (Free Thyroxine) Today E06.3 - Autoimmune thyroiditis, F32.9 - Major depressive disorder, single episode, unspecified, M85.80 - Other specified disorders of bone density and structure, unspecified site, Z78.0 - Asymptomatic menopausal state Medications: New fluticasone propionate 50 mcg/actuation administer into each nostril 1 spray intranasal BID 16 grams 0RF Coding Level of Care Code Est Pt Level 5 (92149) Diagnoses Moderate episode of recurrent major depressive disorder F33.1 Major depression recurrence: recurrent Active/Remission status: currently active Major depression episode severity: moderate Osteopenia after menopause M85.80; Z78.0 Dimitry's disease E06.3 Vitamin D deficiency E55.9 Flu-like symptoms R68.89 Additional Codes HEBERT-7 Assessment Billing - HEBERT-7 Assessment Tool: HEBERT-7 Assessment 54332 ([id number])
[2023-12-15 15:26] VITALS: BP 112/62; PULSE 92; O2SAT 97; BMI 33.2
== END 2023-12-15 16:31 | disposition home or self-care (01) ==
PROVIDERS: PCP Internal Medicine; Visit Provider Nurse Practitioner Family
DX: E06.3 Autoimmune thyroiditis (principal); F33.1 Major depressive disorder, recurrent, moderate; M85.80 Other specified disorders of bone density and structure, unspecified site; Z78.0 Asymptomatic menopausal state; E55.9 Vitamin D deficiency, unspecified; R68.89 Other general symptoms and signs
CPT/HCPCS: 96127; 99215

== ENCOUNTER 2023-12-29 07:54 | Outpatient (REF) | payer OTHER, SELFPAY ==
--- NOTE | ~2023-12-29 | MM_ITS ---
EXAMINATION: BONE DENSITOMETRY CLINICAL INDICATION: Other specified disorders of bone density and structure, unspecified. COMPARISON: Baseline BD dated 12/19/2017. TECHNIQUE: Using a [employer] DXA System (software version: 13.1) manufactured by [employer], dual-energy x-ray absorptiometry was performed of the lumbar spine and left hip. The images are of good technical quality. Summary results are attached. FINDINGS: LEFT FEMUR, NECK: Current: BMD 0.778 g/cm2, Z-score -1.2, T-score -1.9, osteopenia. Baseline: BMD 0.860 g/cm2. LEFT FEMUR, TOTAL: Current: BMD 0.952 g/cm2, Z-score -0.2, T-score -0.4, normal, 2.6% decrease from baseline (<5% change is not significant). Baseline: BMD 0.977 g/cm2. AP SPINE L1-L4: Current: BMD 0.988 g/cm2, Z-score -1.4, T-score -1.6, osteopenia, 10.6% decrease from baseline (<5% change is not significant). Baseline: BMD 1.105 g/cm2. IDENTIFIED RISK FACTORS: Menopause. HISTORY OF FRACTURE: None listed. MEDICATIONS: Vitamin D. MM/XR DEXA axial skeleton IMPRESSION: 1. DIAGNOSIS: Osteopenia based on the lowest T-score value of -1.9 in the femoral neck applying World Health Organization criteria. 2. 10-YEAR FRACTURE RISK PREDICTION, FRAX: Major osteoporotic fracture (clinical spine, forearm, hip or shoulder) 7.7%. Hip fracture 0.8%. 3. Treatment Recommendations: NOF guidelines recommend consideration for treatment in postmenopausal women and men age 50 and older presenting with the following: -A hip or vertebral (clinical or morphometric) fracture. -T-score less than or equal to -2.5 at the femoral neck or spine after appropriate evaluation to exclude secondary causes. -Low bone mass at the hip or spine and a 10-year fracture probability by FRAX of greater than or equal to 3% for hip fracture or greater than or equal to 20% for major osteoporotic fracture based on the [place] adapted WHO algorithm. 4. Other Recommendations: All treatment decisions require clinical judgment and consideration of individual patient factors, including patient preferences, comorbidities, previous drug use, risk factors not captured in the FRAX model (e.g. frailty, falls, vitamin D deficiency, increased bone turnover, interval significant decline in bone density) and possible under or overestimation of fracture risk by FRAX. Additional medical evaluation for secondary cause of low bone mineral density may be appropriate. FUTURE SCAN RECOMMENDATION: People with diagnosed cases of osteoporosis or at high risk for fracture should have regular bone mineral density tests. For patients eligible for Medicare, routine testing is allowed once every 2 years. The testing frequency can be increased to one year for patients who have rapidly progressing disease, those who are receiving or discontinuing medical therapy to restore bone mass, or have additional risk factors.
[2023-12-29 10:20] LABS: Free T4 (Free Thyroxine) 0.91 ng/dL (0.71-1.85); TSH reflex Free T4 1.46 uIU/mL (0.32-4.0)
[2024-01-02 16:44] LABS: VITAMIN D (1,25 OH) D3 49 pg/mL; Vit D (1,25-Dihydroxy) Total 49 pg/mL (18-72); Vitamin D (1,25 OH) D2 <8 pg/mL
== END 2023-12-29 07:55 | disposition home or self-care (01) ==
LOC: HO.MAMMO 07:54
PROVIDERS: PCP Internal Medicine; Visit Provider Nurse Practitioner Family
DX: Z12.31 Encounter for screening mammogram for malignant neoplasm of breast (principal); Z13.820 Encounter for screening for osteoporosis; M85.80 Other specified disorders of bone density and structure, unspecified site; Z78.0 Asymptomatic menopausal state; F32.9 Major depressive disorder, single episode, unspecified; E06.3 Autoimmune thyroiditis; E55.9 Vitamin D deficiency, unspecified
CPT/HCPCS: 36415; 77063; 77067; 77080; 82652; 84439; 84443

== ENCOUNTER → 2023-12-29 08:15 | Outpatient (BNV) | payer OTHER, SELFPAY | PROVIDERS: PCP Internal Medicine; Visit Provider Radiology Diagnostic Radiology | DX: Z12.31 Encounter for screening mammogram for malignant neoplasm of breast (principal) | CPT/HCPCS: 77063; 77067 ==

== ENCOUNTER 2023-12-29 11:28 | Outpatient (AMB) | payer OTHER, SELFPAY ==
--- NOTE | 2023-12-29 11:33 | MHC.OFFWIV ---
Intake Vital Signs 12/29/23 11:36 Height 5 ft 6 in Weight 193 lb BMI 31.1 BP 135/66 Blood Pressure Location Lt brachial Position Sitting Respiration 12 Pulse 69 Pulse Source Pulse Oximeter Temp 98.1 F Temp Source Temporal Artery Scan Pulse Oximetry (%) 98 Oxygen Delivery Method Room Air Intake Visit Reasons: sore throat Intake Note: Patient reports ongoing sore throat with previous strep and flu diagnosis over the last 2 weeks. Patient Tobacco Use Status: Never used Tobacco Hide Shaker Required: No Accompanied by: Self / Same As Patient Allergies kiwi [KIWI] Allergy (Unknown, Verified 12/29/23 11:54) SHORTNESS OF BREATH Penicillins [PENICILLINS] Allergy (Unknown, Verified 12/29/23 11:54) RASH scallops [SCALLOPS] Allergy (Unknown, Verified 12/29/23 11:54) SHORTNESS OF BREATH Sulfa (Sulfonamide Antibiotics) [Sulfa(Sulfonamide Antibiotics)] Allergy (Unknown, Verified 12/29/23 11:54) UNKNOWN, rash, rash Medication List - Last Reconciled 12/29/23 by EVELYN Mcgee-TYESHA cholecalciferol (vitamin D3) 25 mcg PO DAILY duloxetine 20 mg PO DAILY estradiol 0.01%(0.1mg/gram) 1 g vaginal 2XW fluticasone propionate 50 mcg/actuation 1 spray intranasal BID ibuprofen 800 mg PO TID ipratropium bromide 2 sprays intranasal BID-TID PRN lisinopril 5 mg PO DAILY omeprazole 20 mg PO DAILY Do you need a note to return to daycare/school/sports/work: No HPI HPI Comments History of Present Illness Details Here today with complaints of a sore throat. Has been sick with the flu as well as sinusitis over the last couple of weeks. Has completed 2 courses of doxycycline. Despite this she continues with a sore throat. It is intermittent in nature. However when it is present at to severe. Associated with white exudate on the tonsils and she reports that the right tonsil does not look normal. 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 Myalgia Pain, joint, multiple sites COVID-19 virus infection Nephrolithiasis Mixed hyperlipidemia Psoriasis of scalp Surgical History Hx laparoscopic cholecystectomy Family History Father Brain hemangioma Mother Hereditary breast and ovarian cancer syndrome associated with mutation in BRCA2 gene AAA (abdominal aortic aneurysm) Maternal Grandmother Breast cancer Paternal Grandfather Throat cancer Paternal Grandmother CVA (cerebral vascular accident) Brother Multiple sclerosis HTN (hypertension) Social History (Updated 12/15/23 @ 15:30 by JAYDEN Gaines) Housing: House Alcohol intake: current Alcohol intake frequency: a few times a month Patient Tobacco Use Status: Never used Tobacco e-Cigarette/Vaping Use: Never Used Second Hand Smoke Exposure: No service: No Current occupational status: employed 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 [employer] Current occupational exposures/hazards: No Cognitive needs: No Hearing needs: No Vision needs: Yes Review of Systems Const All systems reviewed & are unremarkable except as noted in HPI and below Physical Exam Vital Signs: Last Vital Signs Temp 98.1 F 12/29/23 11:36 Pulse 69 12/29/23 11:36 Resp 12 12/29/23 11:36 BP 135/66 12/29/23 11:36 Pulse Ox 98 12/29/23 11:36 Oxygen Delivery Method Room Air 12/29/23 11:36 BMI result Body Mass Index 31.1 Const Other: Awake alert Conjunctiva clear bilat TM intact and clear bilat Nares and turbinates within normal limits Exudative pharyngitis uvula midline able to manage secretions positive AC adenopathy bilat Regular rate rhythm Lung sounds clear bilat Results AMB Rapid Strep AMB Rapid Strep Positive Last Edit by Lisa Jeronimo CMA on 12/29/23 11:55 Results Reviewed Results Reviewed: Laboratory Last Values Strep Scn Rapid Clinic Positive 12/29/23 11:54 Assessment & Plan Assessment & Plan (1) Strep pharyngitis: Code(s): J02.0 - Streptococcal pharyngitis Plan: Penicillin allergic. Has already been treated with doxycycline. This medication is not effective for group a strep. [place] decision-making regarding using a cephalosporin to treat the strep throat. Risks versus benefits reviewed. Advised that there is a small risk of cross sensitivity. She should monitor herself and stop this medication immediately if she thinks she is having allergic symptoms. She should notify me at this time. Is okay she uses a half a Benadryl b.i.d. while using this medication however this is not necessary. Plan This note is constructed using voice recognition software. While every effort has been made to ensure accuracy in equipment engineer, still errors may have been included Sometimes, these errors may affect the content or meaning of the given sentence . Total time spent caring for the patient today was 30 minutes. This includes time spent before the visit reviewing the chart, time spent during the visit, and time spent after the visit on documentation Orders: Orders AMB Rapid Strep Screen Today Z13.9 - Encounter for screening, unspecified Medications: New cefaclor ER 500 mg PO Q12H 10 tabs 0RF Patient Instructions: Good hand hygiene and respiratory etiquette can reduce the spread of all types of group A strep infection. Hand hygiene is especially important after coughing and sneezing and before preparing foods or eating. Good respiratory etiquette involves covering your cough or sneeze. Do not share food or drinks. Treating an infected person with an antibiotic for 12 hours or longer limits their ability to transmit the bacteria. Thus, people with group A strep pharyngitis should stay home from work, school, or daycare until: They are afebrile AND At least 12?24 hours after starting appropriate antibiotic therapy I also recommend changing toothbrush and washing bed linen in hot water 24 hours after starting antibiotics Coding Level of Care Code Est Pt Level 4 (73274) Diagnoses Strep pharyngitis J02.0
[2023-12-29 11:36] VITALS: BP 135/66; PULSE 69; RESP 12; TEMP 36.7; O2SAT 98; BMI 31.1
== END 2023-12-29 12:16 | disposition home or self-care (01) ==
PROVIDERS: PCP Internal Medicine; Visit Provider Nurse Practitioner Family
DX: J02.0 Streptococcal pharyngitis (principal); J02.9 Acute pharyngitis, unspecified
CPT/HCPCS: 87880; 99214

== ENCOUNTER 2024-02-19 06:57 | Outpatient (REF) | payer OTHER, SELFPAY ==
[2024-02-19 07:43] LABS: Estimated Average Glucose 103 mg/dL; Hemoglobin A1c % 5.2 % (<6.0)
[2024-02-19 07:58] LABS: Alanine Aminotransferase 60 U/L (0-31); Albumin Level 4.3 g/dL (3.5-5.0); Alkaline Phosphatase 74 U/L (39-117); Anion Gap 14 (12-20); Aspartate Amino Transferase 30 U/L (5-31); Bilirubin Total 1.1 mg/dL (0.0-1.0); Blood Urea Nitrogen 15 mg/dL (9-16); Calcium 9.7 mg/dL (8.4-10.2); Carbon Dioxide 24 mmol/L (22-29); Chloride 108 mmol/L (96-108); Cholesterol 216 mg/dL (<200); Estimated Glomerular Filt Rate > 60; Glucose Fasting 95 mg/dL (60-99); HDL Cholesterol 63 mg/dL (>40); LDL Cholesterol Calculated 134 mg/dL (<100); Potassium 3.9 mmol/L (3.3-5.1); Sodium 142 mmol/L (135-145); Total Protein 7.7 g/dL (6.5-8.0); Triglycerides 99 mg/dL (<150)
[2024-02-19 08:13] LABS: TSH reflex Free T4 2.15 uIU/mL (0.32-4.0)
[2024-02-19 08:23] LABS: Folate 9.6 ng/mL (> or = 4.0); Vitamin B12 806 pg/mL (200-900)
[2024-02-19 09:07] LABS: Creatinine Urine 347.85 mg/dL; Microalbum/Creatinine Ratio Ur 3.7 ug/mg cr (<30)
[2024-02-23 01:03] LABS: VITAMIN D (1,25 OH) D3 42 pg/mL; Vit D (1,25-Dihydroxy) Total 42 pg/mL (18-72); Vitamin D (1,25 OH) D2 <8 pg/mL
== END 2024-02-19 06:58 | disposition home or self-care (01) ==
LOC: HO.LAB 06:57
PROVIDERS: PCP Nurse Practitioner Family; Visit Provider Nurse Practitioner Family
DX: M85.80 Other specified disorders of bone density and structure, unspecified site (principal); E78.5 Hyperlipidemia, unspecified; I10 Essential (primary) hypertension; E06.3 Autoimmune thyroiditis; Z78.0 Asymptomatic menopausal state
CPT/HCPCS: 36415; 80053; 80061; 82043; 82570; 82607; 82652; 82746; 83036; 84443

== ENCOUNTER 2024-02-19 07:57 | Outpatient (AMB) | payer OTHER, SELFPAY ==
--- NOTE | 2024-02-19 07:58 | A.OFFPC_ITS ---
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 Required: No Allergies kiwi [KIWI] Allergy (Unknown, Verified 02/19/24 08:15) SHORTNESS OF BREATH Penicillins [PENICILLINS] Allergy (Unknown, Verified 02/19/24 08:15) RASH scallops [SCALLOPS] Allergy (Unknown, Verified 02/19/24 08:15) SHORTNESS OF BREATH Sulfa (Sulfonamide Antibiotics) [Sulfa(Sulfonamide Antibiotics)] Allergy (Unknown, Verified 02/19/24 08:15) UNKNOWN, rash, rash Medication List - Last Reconciled 02/19/24 by Cheri Crespo, DIVISIONAL MERCHANDISING MANAGER- cholecalciferol (vitamin D3) 25 mcg PO DAILY duloxetine 20 mg PO DAILY estradiol 0.01%(0.1mg/gram) 1 g vaginal 2XW fluticasone propionate 50 mcg/actuation 1 spray intranasal BID ibuprofen 800 mg PO TID ipratropium bromide 2 sprays intranasal BID-TID PRN lisinopril 5 mg PO DAILY omeprazole 20 mg PO DAILY Tobacco use date assessed: 02/19/24 Dental Screening Dental Screen Date: 02/19/24 Did you have a dental visit in the last 12 months?: Yes Did you have a dental problem in the last 6 months where you did not have access to dental care?: No Was dental information given to patient?: Patient has dentist HPI HPI Comments History of Present Illness Details 58-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, 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 Optho - has q 6 mo visual field testing Neuro and MRI at [facility] annually. Health maintenance Colonoscopy 2017 Dr. Cuello with hyperplastic polyp Mammogram 01/18/24 BI-RADS BI-RADS 1 - Negative Pap 01/09/23 WNL DEXA 12/29/23 Osteopenia (repeat in 2years) Tdap and Flu UTD. Here today for CPE Labs from today show HgA1c 5.2%, Normal electrolytes,, mild elevation in bilirubin 1.1, normal AST 30, elevated ALT 60, normal alk phos, elevated total cholesterol of 216, LDL 134, HDL 63 (improved), b12, folate, urine microalbumin WNL Reports routine f/u with her care team, to include dental. Sleep is normal. Diet is good. Exercise - no energy to do this. co vomiting and diarrhea after eating breakfast out and other times when at home food going through her had a new allergic reaction to jelly beans ; has epi pen at home, did not have to use. co generalized joint aches: pain on top of feet and in hands/fingers; foot pain worse after activity; sometimes w/ certain shoes; does not feel like plantar fasciitis Cont w/ nasal congestion w/ some discolored drainage; started last week after feeling like she had a cold; exposed to sick grand child. MDD - cont w/ counselor. Feels better however. Cont to have low energy levels. Wiped out, brain fog. Wonders if she would feel better w/ increase in Cymbalta. HTN - was placed on lisinopril 5mg a few years ago; BP only elevated for a short period of time. Monitors at home and reports at goal. Wonders if she can come off. Labs are negative for microalbumin; normal renal function GI - takes PPI 2-3 times per week. Has GERD dt hiatal hernia. Feels she needs this still. 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 Myalgia Pain, joint, multiple sites COVID-19 virus infection Nephrolithiasis Mixed hyperlipidemia Psoriasis of scalp Surgical History Hx laparoscopic cholecystectomy Family History Father Brain hemangioma Mother Hereditary breast and ovarian cancer syndrome associated with mutation in BRCA2 gene AAA (abdominal aortic aneurysm) Maternal Grandmother Breast cancer Paternal Grandfather Throat cancer Paternal Grandmother CVA (cerebral vascular accident) Brother Multiple sclerosis HTN (hypertension) Social History (Updated 12/15/23 @ 15:30 by JAYDEN Gaines) Housing: House Alcohol intake: current Alcohol intake frequency: a few times a month Patient Tobacco Use Status: Never used Tobacco e-Cigarette/Vaping Use: Never Used Second Hand Smoke Exposure: No service: No Current occupational status: employed 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 How often do you have a drink containing alcohol?: 2-4 times a month 2. How many drinks containing alcohol do you have on a typical day when you are drinking?: 1 or 2 3. How often do you have six or more drinks on one occasion?: Never Total Score: 2 HEBERT-7 AMB Questionnaire HEBERT-7 Date HEBERT - 7 assessed: 12/15/23 Source: Developed by Drs. Pedro Resendez, Celina Quijano, Francisco Root and colleagues, with an educational batool from [employer]. Review of Systems Const Details: Constitutional: Denies fever. Skin: Denies rash. Eye: Denies eye pain. ENMT: Denies sore throat. Respiratory: Denies shortness of breath and cough. Gastrointestinal: Denies nausea Cardiovascular: Denies chest pain and syncope. Genitourinary: Denies dysuria. Musculoskeletal: Denies back pain and extremity pain. Neurologic: Denies headaches, confusion, and weakness. Psychiatric: Denies suicidal thoughts and substance abuse. Allergy/ Immunologic: Denies impaired immunity. Physical exam (Primary Care) Vital Signs: Last Vital Signs Temp 98.2 F 02/19/24 08:05 Pulse 70 02/19/24 08:05 Resp 16 02/19/24 08:05 BP 119/68 02/19/24 08:05 Pulse Ox 98 02/19/24 08:05 Oxygen Delivery Method Room Air 02/19/24 08:05 BMI result Body Mass Index 31.0 Tobacco/Smoking Status: Tobacco use Status Tobacco use date assessed 02/19/24 02/19/24 08:04 Patient Tobacco Use Status Never used Tobacco 02/19/24 07:58 e-Cigarette/Vaping Use Never Used 02/19/24 07:58 Thrive Assessment: Date of Thrive Assessment Date Thrive assessed 12/15/23 02/19/24 07:58 Const Other: General: Well developed, well nourished, in no acute distress. Appears stated age. Head: Normocephalic, atraumatic. Eyes: Pupils are equal, round and reactive to light and accommodation. Conjunctivae slightly injected bilat. Vision grossly normal. Ears: TMs clear AU, EACS WNL Nose: Patent, without discharge. Mild nasal congestion and max sinus tenderness bilat, turbinates pale, no edema Mouth: There are no ulcers or lesions noted. No inflammation, no post nasal drip, no plaques nor exudates. Neck: Supple, no adenopathy or thyromegaly. Lungs: Clear to auscultation bilaterally. No rales, rhonchi or wheeze noted. Good air flow in all vivar. Heart: Regular rate and rhythm. No murmurs, click, rubs or gallops are noted. Abdomen: Bowel sounds present in all quadrants. The abdomen is soft, with no masses or organomegaly noted. No hernias are noted. Mild RUQ tenderness w/ palp. Musculoskeletal: Joints are nontender, without swelling, redness, or effusions. Range of motion is observed to be normal. Pulses: Peripheral pulses are equal and palpable bilaterally. Extremities: No clubbing, cyanosis nor edema is noted. Neurologic: Gait and station normal. Cranial Nerves 2-12 intact. Motor strength grossly symmetrical and intact. No sensory loss. Balance normal. Skin: No rashes, ulcers, or lesions noted. Turgor is good. Skin color is good. Hair and nails are without abnormalities. Psych: Normal eye contact, affect and mood appropriate, and normal interactions. Patient is alert and appropriate to context Assessment and Plan Assessment & Plan (1) Encounter for general adult medical examination without abnormal findings: Code(s): Z00.00 - Encounter for general adult medical examination without abnormal findings (2) Osteopenia after menopause: Comment: dexa 2018 femoral neck osteopenia dexa 12/2023 osteopenia with normal Ca and Vit D levels. Recheck in 2025, cont wt bearing movements Code(s): M85.80 - Other specified disorders of bone density and structure, unspecified site; Z78.0 - Asymptomatic menopausal state (3) MDD (major depressive disorder): Comment: Currently on Cymbalta 20 mg. Active with a counselor. Plan: Increase cymbalta from 20mg QD to 40mg QD. Cont w/ counselor. FU in 6 weeks. Code(s): F32.9 - Major depressive disorder, single episode, unspecified Qualifiers: Active/Remission status: currently active Major depression episode severity: moderate Major depression recurrence: recurrent Qualified Code(s): F33.1 - Major depressive disorder, recurrent, moderate (4) Essential hypertension: Comment: Goal < 130/80 Decrease lisinopril from 5mg/day to 2.5mg/day monitor BP x 2 weeks if ok, trial stop. If > 130/80 will need to restart. Keep me updated on the portal, please. Code(s): I10 - Essential (primary) hypertension (5) Dyslipidemia: Comment: Improvement in Lipid profile w/o medications LDL Goal < 70 Cont to monitor Code(s): E78.5 - Hyperlipidemia, unspecified (6) Dimitry's disease: Comment: Normal TSH & Vit D levels Vit D level > 40 on supplement, will have her d/c and will cont to monitor. Cont monitoring Code(s): E06.3 - Autoimmune thyroiditis (7) Syrinx of spinal cord: Comment: Thoracic syrinx , ff'd by Dr Norberto De La Cruz Code(s): G95.0 - Syringomyelia and syringobulbia (8) Meningioma: Comment: ff'd by Dr Dunn, and Dr Angeles at [facility] w/ annual MRI testing and q6 month visual field testing. Code(s): D32.9 - Benign neoplasm of meninges, unspecified (9) Fatty liver: Comment: chronic elevated in LFTs. US 02/2023 showed fatty liver. Will check elastograph. Code(s): K76.0 - Fatty (change of) liver, not elsewhere classified (10) RUQ pain: Comment: Check Limited Abd US & stool for H Pylori. Will have her hold her omeprazole 20mg for 2 weeks PRIOR to submitting the stool test. Code(s): R10.11 - Right upper quadrant pain (11) Joint pain: Code(s): M25.50 - Pain in unspecified joint Qualifiers: Joint pain location: foot Laterality: bilateral Qualified Code(s): M25.571 - Pain in right ankle and joints of right foot; M25.572 - Pain in left ankle and joints of left foot Plan: multiple joints negative NATASHA work up in the past has never had parathyroid work up, given hx of hashimotos, will check. Orders: Orders H pylori Ag Stool Today R10.11 - Right upper quadrant pain Parathyroid Hormone Intact Today R10.11 - Right upper quadrant pain Calcium, Ionized Today R10.11 - Right upper quadrant pain Phosphorus Today R10.11 - Right upper quadrant pain Lipid Panel 4 Months E06.3 - Autoimmune thyroiditis, E78.5 - Hyperlipidemia, unspecified, I10 - Essential (primary) hypertension, K76.0 - Fatty (change of) liver, not elsewhere classified, M85.80 - Other specified disorders of bone d ensity and structure, unspecified site, Z78.0 - Asymptomatic menopausal state TSH reflex Free T4 4 Months E06.3 - Autoimmune thyroiditis, E78.5 - Hyperlipidemia, unspecified, I10 - Essential (primary) hypertension, K76.0 - Fatty (change of) liver, not elsewhere classified, M85.80 - Other specified disorders of bone density and structure, unspecified site, Z78.0 - Asymptomatic menopausal state Comprehensive [place]. Panel Fast 4 Months E06.3 - Autoimmune thyroiditis, E78.5 - Hyperlipidemia, unspecified, I10 - Essential (primary) hypertension, K76.0 - Fatty (change of) liver, not elsewhere classified, M85.80 - Other specified disorders of bone density and structure, unspecified site, Z78.0 - Asymptomatic menopausal state Microalbumin, Random (w Creat) 4 Months E06.3 - Autoimmune thyroiditis, E78.5 - Hyperlipidemia, unspecified, I10 - Essential (primary) hypertension, K76.0 - Fatty (change of) liver, not elsewhere classified, M85.80 - Other specified disorders of bone density and structure, unspecified site, Z78.0 - Asymptomatic menopausal state US abdomen ortiz w elastography Today K76.0 - Fatty (change of) liver, not elsewhere classified Magnesium Today R10.11 - Right upper quadrant pain Vitamin D 1,25 dihydroxy 4 Months E06.3 - Autoimmune thyroiditis, E78.5 - Hyperlipidemia, unspecified, I10 - Essential (primary) hypertension, K76.0 - Fatty (change of) liver, not elsewhere classified, M85.80 - Other specified disorders of bone density and structure, unspecified site, Z78.0 - Asymptomatic menopausal state Hemoglobin A1c 4 Months E06.3 - Autoimmune thyroiditis, E78.5 - Hyperlipidemia, unspecified, I10 - Essential (primary) hypertension, K76.0 - Fatty (change of) liver, not elsewhere classified, M85.80 - Other specified disorders of bone density and structure, unspecified site, Z78.0 - Asymptomatic menopausal state Medications: New omeprazole 20 mg PO DAILY 90 caps 1RF montelukast (Singulair) 10 mg PO BEDTIME 90 tabs 0RF Changed From duloxetine 20 mg PO DAILY 90 caps 3RF To duloxetine 40 mg (2 x 20 mg) PO DAILY 90 caps 3RF From lisinopril 5 mg PO DAILY 90 tabs 3RF To lisinopril 2.5 mg (1/2 x 5 mg) PO DAILY 90 tabs 3RF Patient Instructions: RTO in 6 weeks to f/u in Cymbalta increase, sooner PRN. Health screenings for women You should visit your health care provider from time to time, even if you are healthy. The purpose of these visits is to: Screen for medical issues Assess your risk for future medical problems Encourage a healthy lifestyle Update vaccinations and other preventive care services Help you get to know your provider in case of an illness Information Even if you feel fine, you should still see your provider for regular checkups. These visits can help you avoid problems in the future. For example, the only way to find out if you have high blood pressure is to have it checked regularly. High blood sugar and high cholesterol levels also may not have any symptoms in the early stages. A simple blood test can check for these conditions. There are specific times when you should see your provider or receive specific health screenings. The [place] Preventive Services Task Force publishes a list of recommended screenings. Below are screening guidelines for women ages 18 to 39. BLOOD PRESSURE SCREENING Your blood pressure should be checked at least once every 3 to 5 years if: Your blood pressure is in the normal range (top number less than 120 mm Hg and bottom number less than 80 mm Hg) You don't have risk factors for high blood pressure Ask your provider if you need your blood pressure checked more often if: The top number is 120 to 129 mm Hg or the bottom number is 70 to 79 mm Hg You have diabetes, heart disease, kidney problems, are overweight, or have certain other health conditions You have a first-degree relative with high blood pressure You are Black You had high blood pressure during a If the top number is 130 mm Hg or greater or the bottom number is 80 mm Hg or greater, this is considered stage 1 hypertension. Schedule an appointment with your provider to learn how you can reduce your blood pressure. Watch for blood pressure screenings in your area. Ask your provider if you can stop in to have your blood pressure checked. BREAST CANCER SCREENING Experts do not agree about the benefits of breast self-exams in finding breast cancer or saving lives. Talk to your provider about what is best for you. A screening mammogram is not recommended for most women under age 40. Your provider may discuss and recommend mammograms, MRI scans, or ultrasounds if you have an increased risk for breast cancer, such as: A mother or sister who had breast cancer at a young age (most often starting screening earlier than the age the close relative was diagnosed) You carry a high-risk genetic marker CERVICAL CANCER SCREENING Cervical cancer screening should start at age 21 years unless your provider advises otherwise. After the first test: Women ages 21 through 29 should have a Pap test every 3 years. Exoprts do not agree on whether HPV testing is recommended for this age group. Women ages 30 through 65 should be screened with either a Pap test every 3 years or the HPV test every 5 years or both tests every 5 years (called cotesting ). Women who have been treated for precancer (cervical dysplasia) should continue to have Pap tests for 20 years after treatment or until age 65, whichever is longer. If you have had your uterus and cervix removed (total hysterectomy), and you have not been diagnosed with cervical cancer or precancer (high grade cervical neoplasia), you do not need cervical cancer screening. CHOLESTEROL SCREENING Cholesterol screening should begin at: Age 45 for women with no known risk factors for coronary heart disease Age 20 for women with known risk factors for coronary heart disease Repeat cholesterol screening should take place: Every 5 years for women with normal cholesterol levels More often if changes occur in lifestyle (including weight gain and diet) More often if you have diabetes, heart disease, kidney problems, or certain other conditions DIABETES SCREENING You should be screened for diabetes starting at age 35 and then repeated every 3 years if you have no risk factors for diabetes. Screening may need to start earlier and be repeated more often if you have other risk factors for diabetes, such as: You have a first degree relative with diabetes. You are overweight or have obesity. You have high blood pressure, prediabetes, or a history of heart disease. Screening for diabetes should be done if you are planning to become and you are overweight and have other risk factors such as high blood pressure. DENTAL EXAM Go to the dentist once or twice every year for an exam and cleaning. Your dentist will evaluate if you need more frequent visits. EYE EXAM Have an eye exam every 5 to 10 years before age 40. If you have vision problems, have an eye exam every 2 years or more often if recommended by your provider. You should have an eye exam that includes an examination of your retina (back of your eye) at least every year if you have diabetes. IMMUNIZATIONS Commonly needed vaccines include: Flu shot: get one every year. COVID-19 vaccine: ask your provider what is best for you. Tetanus-diphtheria and acellular pertussis (Tdap) vaccine: have one at or after age 19 as one of your tetanus-diphtheria vaccines if you did not receive it as an adolescent. Tetanus-diphtheria: have a booster (or Tdap) every 10 years. Varicella vaccine: receive 2 doses if you never had chickenpox or the varicella vaccine. Hepatitis B vaccine: receive 2, 3, or 4 doses, depending on your exact circumstances. Measles, mumps, and rubella (MMR) vaccine: receive 1 to 2 doses if you are not already immune to MMR. Your provider can tell you if you are immune. Ask your provider about the human papillomavirus (HPV) vaccine if: You have not received the HPV vaccine in the past You have not completed the full vaccine series (you should catch up on this shot) Ask your provider if you should receive other immunizations if you have certain health problems that increase your risk for some diseases such as pneumonia. INFECTIOUS DISEASE SCREENING Women who are sexually active should be screened for chlamydia and gonorrhea up until age 25. Women 25 years and older should be screened for chlamydia and gonorrhea if at high risk. Screening for hepatitis C: All adults ages 18 to 79 should get a one-time test for hepatitis C. people should be screened at every . Screening for human immunodeficiency virus (HIV): All people ages 15 to 65 should get a one-time test for HIV. Depending on your lifestyle and medical history, you may also need to be screened for infections such as syphilis and HIV, as well as other infections. PHYSICAL EXAM All adults should visit their provider from time to time, even if they are healthy. The purpose of these visits is to: Screen for disease Assess your risk of future medical problems Encourage a healthy lifestyle Update your vaccinations and other preventive care services Maintain a relationship with a provider in case of an illness Your height, weight, and BMI should be checked at every exam. During your exam, your provider may ask you about: Depression and anxiety Diet and exercise Alcohol and tobacco use Safety issues, such as using seat belts, smoke detectors, and intimate partner violence Your medicines and risk for interactions SKIN SELF-EXAM Your provider may check your skin for signs of skin cancer, especially if you're at high risk, such as if you: Have had skin cancer before Have close relatives with skin cancer Have a weakened immune system OTHER SCREENING Talk with your provider about colon cancer screening if you have a strong family history of colon cancer or polyps, or if you have had inflammatory bowel disease or polyps yourself. Routine bone density screening of women under 40 is not recommended. Coding Level of Care Code Est Pt Prev Care 40-64y(63102) Diagnoses Encounter for general adult medical examination without abnormal findings Z00.00 Osteopenia after menopause M85.80; Z78.0 Moderate episode of recurrent major depressive disorder F33.1 Active/Remission status: currently active Major depression episode severity: moderate Major depression recurrence: recurrent Essential hypertension I10 Dyslipidemia E78.5 Dimitry's disease E06.3 Syrinx of spinal cord G95.0 Meningioma D32.9 Fatty liver K76.0 RUQ pain R10.11 Pain in joints of both feet M25.571; M25.572 Joint pain location: foot Laterality: bilateral
[2024-02-19 08:05] VITALS: BP 119/68; PULSE 70; RESP 16; TEMP 36.8; O2SAT 98; BMI 31.0
== END 2024-02-19 08:55 | disposition home or self-care (01) ==
PROVIDERS: PCP Nurse Practitioner Family; Visit Provider Nurse Practitioner Family
DX: Z00.00 Encounter for general adult medical examination without abnormal findings (principal); F33.1 Major depressive disorder, recurrent, moderate; G95.0 Syringomyelia and syringobulbia; D32.9 Benign neoplasm of meninges, unspecified; M85.80 Other specified disorders of bone density and structure, unspecified site; Z78.0 Asymptomatic menopausal state; I10 Essential (primary) hypertension; E78.5 Hyperlipidemia, unspecified; E06.3 Autoimmune thyroiditis; K76.0 Fatty (change of) liver, not elsewhere classified; R10.11 Right upper quadrant pain; M25.571 Pain in right ankle and joints of right foot
CPT/HCPCS: 99396

== ENCOUNTER 2024-02-19 09:10 | Outpatient (REF) | payer OTHER, SELFPAY ==
[2024-02-19 11:37] LABS: Magnesium 2.1 mg/dL (1.6-2.6); Phosphorus 3.2 mg/dL (2.7-4.5)
[2024-02-19 11:47] LABS: Parathyroid Hormone Intact 46.1 pg/mL (8.7-77.1)
[2024-02-20 15:48] LABS: Calcium, Ionized 5.1 mg/dL (4.7-5.5)
== END 2024-02-19 09:11 | disposition home or self-care (01) ==
LOC: HO.WFDLDS 09:10
PROVIDERS: Visit Provider Nurse Practitioner Family
DX: R10.11 Right upper quadrant pain (principal)
CPT/HCPCS: 36415; 82330; 83735; 83970; 84100

== ENCOUNTER 2024-03-14 10:30 | Outpatient (REF) | payer OTHER, SELFPAY | END 2024-03-14 10:31 | disposition home or self-care (01) | LOC: HO.LNP 10:30 | PROVIDERS: Visit Provider Nurse Practitioner Family | DX: R10.11 Right upper quadrant pain (principal) | CPT/HCPCS: 87338 ==

== ENCOUNTER 2024-03-21 07:50 | Outpatient (REF) | payer OTHER, SELFPAY ==
--- NOTE | ~2024-03-21 | US_ITS ---
EXAMINATION: US ABDOMEN LIMITED WITH LIVER ELASTOGRAPHY CLINICAL INFORMATION: Hepatic steatosis COMPARISON: None available. TECHNIQUE: Real-time imaging of the abdominal viscera. Noninvasive ultrasound liver fibrosis assessment is performed using [employer] ElastPQ point quantification shear wave elastography (2D-SWE) with a C5-2 MHz transducer. Multiple elastography samples are obtained. FINDINGS: PANCREAS: The visualized portions of the pancreas are unremarkable but a large portion of the gland is obscured by bowel gas. LIVER: The liver is enlarged with increased echogenicity consistent with steatosis. No focal lesion or intrahepatic biliary duct dilatation. The right lobe measures 19 cm in length. The left lobe measures 7.2 cm in length. Portal flow is hepatopedal. Shear wave liver elastography median stiffness is 1.04 m/s (reference: normal median stiffness is 1.3 m/s or less). IQR/median stiffness to assess sampling precision is 0.14 (reference: good quality data set is IQR/median stiffness of 0.15 or less). GALLBLADDER: Status post cholecystectomy. COMMON BILE DUCT: Normal in caliber measuring 0.7 cm in diameter. RIGHT KIDNEY: Normal. No hydronephrosis. No renal calculi or focal parenchymal lesions. The kidney measures 10.4 cm in maximum dimension. FREE FLUID: None. US/US abdomen ortiz w elastography IMPRESSION: 1. Hepatic steatosis. 2. Liver elastography: Measurements are consistent with a high probability of normal liver stiffness. REFERENCE: Society of Radiologists in Ultrasound Liver Stiffness Thresholds (2020): LIVER STIFFNESS THRESHOLDS: *Liver Stiffness equal or less than 1.3 m/s: High probability of being normal. *Liver Stiffness less than 1.7 m/s: In the absence of other known clinical signs, rules out compensated advanced chronic liver disease. *Liver Stiffness 1.7-2.1 m/s: Suggestive of compensated advanced chronic liver disease but need further test for confirmation. *Liver Stiffness over 2.1 m/s: Rules in compensated advanced chronic liver disease. *Liver Stiffness over 2.4 m/s: Suggestive of clinically significant portal hypertension. QUALITY OF DATA SET: *IQR/Median value equal or less than 0.15 implies a quality data set. *IQR/Median value over 0.15 implies a poor quality data set. SIGNIFICANT CHANGE FROM PRIOR EXAM: Significant change if liver stiffness measurement is 10% or greater from prior exam. OTHER CONSIDERATIONS: The stage of liver fibrosis may be overestimated in the setting of acute hepatitis, liver inflammation, elevated liver function tests, hepatic vascular congestion, obstructive cholestasis, non-fasting state, and infiltrative diseases such as amyloidosis and lymphoma. In some patients with NAFLD, the liver stiffness thresholds for compensated advanced chronic liver disease may be lower. In causes other than viral hepatitis and NAFLD, liver stiffness thresholds are not well established.
== END 2024-03-21 07:51 | disposition home or self-care (01) ==
LOC: HO.US 07:50
PROVIDERS: PCP Nurse Practitioner Family; Visit Provider Nurse Practitioner Family
DX: K76.0 Fatty (change of) liver, not elsewhere classified (principal)
CPT/HCPCS: 76705; 76981

== ENCOUNTER 2024-04-08 13:40 | Outpatient (AMB) | payer OTHER, SELFPAY ==
--- NOTE | 2024-04-08 13:31 | MHC.PC.OV ---
Intake Visit Reasons: increase in Cymbalta/ rs from april 03 Allergies kiwi [KIWI] Allergy (Unknown, Verified 04/08/24 16:06) SHORTNESS OF BREATH Penicillins [PENICILLINS] Allergy (Unknown, Verified 04/08/24 16:06) RASH scallops [SCALLOPS] Allergy (Unknown, Verified 04/08/24 16:06) SHORTNESS OF BREATH Sulfa (Sulfonamide Antibiotics) [Sulfa(Sulfonamide Antibiotics)] Allergy (Unknown, Verified 04/08/24 16:06) UNKNOWN, rash, rash Medication List - Last Reconciled 04/08/24 by Cheri Crespo, [facility]- duloxetine 40 mg (2 x 20 mg) PO DAILY estradiol 0.01%(0.1mg/gram) 1 g vaginal 2XW fluticasone propionate 50 mcg/actuation 1 spray intranasal BID ibuprofen 800 mg PO TID lisinopril 5 mg PO DAILY montelukast (Singulair) 10 mg PO BEDTIME omeprazole 20 mg PO DAILY Tobacco use date assessed: 02/19/24 Dental Screening Dental Screen Date: 02/19/24 HPI HPI Comments History of Present Illness Details Telehealth visit today to fu: Since increase in Cymbalta, think this has made a difference in a + way. Does not think she needs to do anything else - very happy w/ dose. Did not decrease lisinopril as did not want to make 2 med changes at the same time. Her last BP was 130/80 cont 5 mg Wants to be in a better spot health roper before coming off. Went away on vaction w/ sister. Witnessed apnea, snoring. + hypersomnolence and daytime fatigue. GI sx cont to come and go, using PPI prn, mostly 2xweek. H pylori negative. Liver Elastrography I called and spoke to Rad support about read -- i can see image done but no report states they are behind; marked read a priority and will upload once read Plan: Cont cymbalta 40mg QD Will update via portal once Liver Elast. results are available. Cont PPI PRN Cont lisin 5mg po QD. Let me know if you make any dose changes or have any BP issues. Goal <130/80 Check sleep study given reports. Please send me message for results if i dont get back to you. 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 Myalgia COVID-19 virus infection Nephrolithiasis Mixed hyperlipidemia Psoriasis of scalp Surgical History Hx laparoscopic cholecystectomy Family History Father Brain hemangioma Mother Hereditary breast and ovarian cancer syndrome associated with mutation in BRCA2 gene AAA (abdominal aortic aneurysm) Maternal Grandmother Breast cancer Paternal Grandfather Throat cancer Paternal Grandmother CVA (cerebral vascular accident) Brother Multiple sclerosis HTN (hypertension) Social History (Updated 12/15/23 @ 15:30 by JAYDEN Gaines) Housing: House Alcohol intake: current Alcohol intake frequency: a few times a month Patient Tobacco Use Status: Never used Tobacco e-Cigarette/Vaping Use: Never Used Second Hand Smoke Exposure: No service: No Current occupational status: employed 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 1. Little interest or pleasure in doing things: not at all 2. Feeling down, depressed, or hopeless: not at all 3. Trouble falling or staying asleep, or sleeping too much: not at all 4. Feeling tired or having little energy: not at all 5. Poor appetite or overeating: not at all 6. Feeling bad about yourself - or that you are a failure or have let yourself or your family down: not at all 7. Trouble concentrating on things, such as reading the newspaper or watching television: not at all 8. Moving or speaking so slowly that other people could have noticed. Or the opposite - being so fidgety or restless that you have been moving around a lot more than usual: not at all 9. Thoughts that you would be better off or of hurting yourself in some way: not at all Total score: 0 Depression Screening Interpretation: Negative Depression Screening Done: Yes 39027 - PHQ-9 Billing: Yes Source: Developed by Drs. Pedro Resendez, Francisco Ramirez and colleagues, with an educational batool from [employer]. Thrive Questionnaire Date Thrive assessed: 12/15/23 HEBERT-7 AMB Questionnaire HEBERT-7 Date HEBERT - 7 assessed: 12/15/23 Source: Developed by Drs. Pedro Resendez, Celina Quijano, Francisco Root and colleagues, with an educational batool from [employer]. Physical exam (Primary Care) Tobacco/Smoking Status: Tobacco use Status Tobacco use date assessed 02/19/24 04/08/24 13:31 Patient Tobacco Use Status Never used Tobacco 04/08/24 13:31 e-Cigarette/Vaping Use Never Used 04/08/24 13:31 PHQ-9: PHQ-9 Score PHQ-9: Total score 0 04/08/24 16:01 Depression Screening Interpretation: Negative Thrive Assessment: Date of Thrive Assessment Date Thrive assessed 12/15/23 04/08/24 13:31 Telehealth Telehealth Telehealth Platform: Telephone Location of provider rendering services: practice address Location of patient: address on file Patient Identification confirmed using: Name, : Yes Telehealth method: voice only Patient verbally consented to treatment: Yes Patient verbally consented to billing insurance company: Yes Patient informed of any privacy concerns related to visit: Yes Minutes spent on Phone/Video with Pt.: 17 Assessment and Plan Assessment & Plan (1) Fatty liver: Comment: chronic elevated in LFTs. US 02/2023 showed fatty liver. 03/21/24 Liver Elastography pending Code(s): K76.0 - Fatty (change of) liver, not elsewhere classified (2) MDD (major depressive disorder): Comment: Active with a counselor. Continue cymbalta 40mg QD. Cont w/ counselor. Code(s): F32.9 - Major depressive disorder, single episode, unspecified Qualifiers: Major depression recurrence: recurrent Active/Remission status: currently active Major depression episode severity: moderate Qualified Code(s): F33.1 - Major depressive disorder, recurrent, moderate (3) Essential hypertension: Comment: Goal < 130/80 at this time cont 5mg..., however ok to Decrease lisinopril from 5mg/day to 2.5mg/day monitor BP x 2 weeks if ok, trial stop. If > 130/80 will need to restart. Keep me updated on the portal, please. Code(s): I10 - Essential (primary) hypertension Orders: Orders RT home sleep study Today G47.10 - Hypersomnia, unspecified, R06.81 - Apnea, not elsewhere classified, R06.83 - Snoring Medications: Changed From duloxetine 40 mg (2 x 20 mg) PO DAILY 90 caps 3RF To duloxetine 40 mg (2 x 20 mg) PO DAILY 3 months 180 caps 3RF Patient Instructions: Plan: Cont cymbalta 40mg QD Will update via portal once Liver Elast. results are available. Cont PPI PRN Cont lisin 5mg po QD. Let me know if you make any dose changes or have any BP issues. Goal <130/80 Check sleep study given reports. Please send me message for results if i dont get back to you. Coding Level of Care Code Tele Est Pt Level 2 (69816) Diagnoses Fatty liver K76.0 Moderate episode of recurrent major depressive disorder F33.1 Major depression recurrence: recurrent Active/Remission status: currently active Major depression episode severity: moderate Essential hypertension I10
== END 2024-04-08 16:21 | disposition home or self-care (01) ==
LOC: HO.HMGFM 13:40
PROVIDERS: PCP Nurse Practitioner Family; Visit Provider Nurse Practitioner Family
DX: K76.0 Fatty (change of) liver, not elsewhere classified (principal); F33.1 Major depressive disorder, recurrent, moderate; I10 Essential (primary) hypertension
CPT/HCPCS: 99212

== ENCOUNTER 2024-07-30 14:58 | Outpatient (AMB) | payer BC, SELFPAY ==
--- NOTE | 2024-07-30 15:06 | A.OFFVIS_ITS ---
Vital Signs 07/30/24 15:17 Height 5 ft 6 in Weight 184 lb 15.485 oz BMI 29.9 BP 132/80 Blood Pressure Location Rt brachial Position Sitting Pulse 78 Pulse Source Pulse Oximeter Pulse Oximetry (%) 98 Oxygen Delivery Method Room Air Intake Visit Reasons: Joint Pain Intake Note: Patient presents for joint pain. I feel joint pain on left hip, lower back, left knee and top of both my feet. Both shoulders and neck. I been having pain for up 2 years. Ibuprofen when need it. Allergies kiwi [KIWI] Allergy (Unknown, Verified 07/30/24 15:13) SHORTNESS OF BREATH Penicillins [PENICILLINS] Allergy (Unknown, Verified 07/30/24 15:13) RASH scallops [SCALLOPS] Allergy (Unknown, Verified 07/30/24 15:13) SHORTNESS OF BREATH Sulfa (Sulfonamide Antibiotics) [Sulfa(Sulfonamide Antibiotics)] Allergy (Unknown, Verified 07/30/24 15:13) UNKNOWN, rash, rash Medication List - Last Reconciled 07/30/24 by Mino Osman MD duloxetine 40 mg (2 x 20 mg) PO DAILY 3 months estradiol 0.01%(0.1mg/gram) 1 g vaginal 2XW ibuprofen 800 mg PO TID lisinopril 5 mg PO DAILY omeprazole 20 mg PO DAILY HPI Comments Details: This is a 59-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 who presents for evaluation of diffuse pain. She states that she has had pains for many years. She was evaluated by Dr. Mendez almost 10 years ago. At that time no evidence of an autoimmune rheumatic disease was found. She states that she has pain in her neck, hips, shoulders, back. She has had steroid injections over the years. She received injections for trochanteric bursitis, she also had injections in her back. She states that the injections are usually helpful and it gives her relief for 6 months or more. 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 Myalgia COVID-19 virus infection Nephrolithiasis Mixed hyperlipidemia Psoriasis of scalp Surgical History Hx laparoscopic cholecystectomy Family History Father Brain hemangioma Mother Hereditary breast and ovarian cancer syndrome associated with mutation in BRCA2 gene AAA (abdominal aortic aneurysm) Maternal Grandmother Breast cancer Paternal Grandfather Throat cancer Paternal Grandmother CVA (cerebral vascular accident) Brother Multiple sclerosis HTN (hypertension) Social History Housing: House Alcohol intake: current Alcohol intake frequency: a few times a month Patient Tobacco Use Status: Never used Tobacco e-Cigarette/Vaping Use: Never Used Second Hand Smoke Exposure: No service: No Current occupational status: employed 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 [employer] Current occupational exposures/hazards: No Cognitive needs: No Hearing needs: No Vision needs: Yes Review of Systems Const Reports fatigue and Reports weakness Musc Reports back pain, Reports myalgias and Reports arthralgias Neuro Reports weakness Psych Reports anxiety Endo Reports fatigue Physical Exam Const General: cooperative, healthy appearing and comfortable Nutritional Appearance: overweight Orientation/consciousness: patient oriented x3 Limitations: no limitations HEENT Head: Yes normocephalic and Yes atraumatic Mouth: moist mucous membranes Resp Effort & Inspection: normal respiratory effort and able to speak in complete sentences Skin Other: Very subtle psoriasis rash on both ear lobules Neuro General: patient oriented x3 Extrem Other: Minimal osteoarthritic changes of both hands with no active synovitis Normal range of motion of hands, shoulders, elbows without pain Multiple fibromyalgia tender points Negative straight leg raise test bilaterally Left trochanteric bursa area tenderness with negative Andrea's test Assessment & Plan Assessment & Plan (1) Fibromyalgia, primary: Code(s): M79.7 - Fibromyalgia Category: Medical Plan: This is a 59-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 who presents for evaluation of diffuse pain. Upon evaluation I do not see any evidence of an autoimmune rheumatic disease. Clinical picture consistent with fibromyalgia in addition to generalized osteoarthritis Discussed management of fibromyalgia with patient. Is a noninflammatory, non- autoimmune central afferent processing disorder leading to a diffuse pain syndrome. I suggested that patient try to address her underlying psychiatric issues, anxiety/depression I suggested evaluation by a therapist and/or a psychiatrist. A sleep study has been ordered to rule out RADHA. Try to follow sleep hygiene practices. Patient would benefit from increased physical activity, either through formal physical therapy or by joining a gym. Advised patient that she should start activity slowly and increase as tolerated. Consider low-impact exercises such as walking, swimming, aqua therapy stretching, yoga. She is on duloxetine 40 mg daily. She can continue with it Follow-up with PCP (2) Greater trochanteric pain syndrome of left lower extremity: Code(s): M25.552 - Pain in left hip Category: Medical Plan: I provided patient a printout of home exercise Plan I spent 30 minutes reviewing patient's chart, evaluating patient, , counseling patient and documenting in the chart Coding Level of Care Code New Pt Level 3 (88137) Diagnoses Fibromyalgia, primary M79.7 Greater trochanteric pain syndrome of left lower extremity M25.552
[2024-07-30 15:17] VITALS: BP 132/80; PULSE 78; O2SAT 98; BMI 29.9
== END 2024-07-30 15:50 | disposition home or self-care (01) ==
PROVIDERS: PCP Nurse Practitioner Family; Visit Provider Student in an Organized Health Care Education/Training Program
DX: M79.7 Fibromyalgia (principal); M25.552 Pain in left hip
CPT/HCPCS: 99203

== ENCOUNTER → 2024-07-30 14:58 | Outpatient (BNVA) | payer BC, SELFPAY | PROVIDERS: PCP Nurse Practitioner Family; Visit Provider Student in an Organized Health Care Education/Training Program ==

== ENCOUNTER 2024-08-21 06:45 | Outpatient (REF) | payer BC, SELFPAY ==
[2024-08-21 07:45] LABS: Estimated Average Glucose 97 mg/dL; Hemoglobin A1C 118.6561 umol/L; Total Hemoglobin (HGBA1C) 3750.1728 umol/L
[2024-08-21 08:10] LABS: Alanine Aminotransferase 36 U/L (0-31); Albumin Level 4.2 g/dL (3.5-5.0); Alkaline Phosphatase 74 U/L (39-117); Anion Gap 10 (12-20); Aspartate Amino Transferase 25 U/L (5-31); Bilirubin Total 1.1 mg/dL (0.0-1.0); Blood Urea Nitrogen 15 mg/dL (9-16); Calcium 10.4 mg/dL (8.4-10.2); Carbon Dioxide 27 mmol/L (22-29); Chloride 108 mmol/L (96-108); Cholesterol 210 mg/dL (<200); Estimated Glomerular Filt Rate > 60; Glucose Fasting 93 mg/dL (60-99); HDL Cholesterol 63 mg/dL (>40); LDL Cholesterol Calculated 127 mg/dL (<100); Potassium 4.2 mmol/L (3.3-5.1); Sodium 141 mmol/L (135-145); Total Protein 7.4 g/dL (6.5-8.0); Triglycerides 102 mg/dL (<150)
[2024-08-21 08:18] LABS: TSH reflex Free T4 2.49 uIU/mL (0.32-4.0)
[2024-08-21 08:27] LABS: Creatinine Urine 206.99 mg/dL; Microalbum/Creatinine Ratio Ur 3.8 ug/mg cr (<30)
[2024-08-27 00:28] LABS: VITAMIN D (1,25 OH) D3 52 pg/mL; Vit D (1,25-Dihydroxy) Total 52 pg/mL (18-72); Vitamin D (1,25 OH) D2 <8 pg/mL
== END 2024-08-21 06:46 | disposition home or self-care (01) ==
LOC: HO.LAB 06:45
PROVIDERS: PCP Nurse Practitioner Family; Visit Provider Nurse Practitioner Family
DX: K76.0 Fatty (change of) liver, not elsewhere classified (principal); M85.80 Other specified disorders of bone density and structure, unspecified site; Z78.0 Asymptomatic menopausal state; E78.5 Hyperlipidemia, unspecified; I10 Essential (primary) hypertension; E06.3 Autoimmune thyroiditis; Z13.1 Encounter for screening for diabetes mellitus
CPT/HCPCS: 36415; 80053; 80061; 82043; 82570; 82652; 83036; 84443

== ENCOUNTER 2024-08-21 15:31 | Outpatient (AMB) | payer BC, SELFPAY ==
--- NOTE | 2024-08-21 15:17 | A.OFFPC_ITS ---
Vital Signs 08/21/24 15:38 08/21/24 16:05 Height 5 ft 5 in Weight 184 lb 8 oz BMI 30.7 BP 138/76 118/62 Blood Pressure Location Rt brachial Lt brachial Position Sitting Respiration 14 Pulse 78 Pulse Source Pulse Oximeter Pulse Oximetry (%) 97 Oxygen Delivery Method Room Air Intake Visit Reasons: 6 month follow up Intake Note: 6 month follow up Allergies kiwi [KIWI] Allergy (Unknown, Verified 08/21/24 15:48) SHORTNESS OF BREATH Penicillins [PENICILLINS] Allergy (Unknown, Verified 08/21/24 15:48) RASH scallops [SCALLOPS] Allergy (Unknown, Verified 08/21/24 15:48) SHORTNESS OF BREATH Sulfa (Sulfonamide Antibiotics) [Sulfa(Sulfonamide Antibiotics)] Allergy (Unknown, Verified 08/21/24 15:48) UNKNOWN, rash, rash Medication List - Last Reconciled 08/21/24 by Cheri Crespo, BROADCAST CORRESPONDENT- duloxetine 40 mg (2 x 20 mg) PO DAILY 3 months estradiol 0.01%(0.1mg/gram) 1 g vaginal 2XW ibuprofen 800 mg PO TID lisinopril 5 mg PO DAILY omeprazole 20 mg PO DAILY Tobacco use date assessed: 02/19/24 Dental Screening Dental Screen Date: 02/19/24 HPI HPI Comments History of Present Illness Details 59-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, 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 Optho - has q 6 mo visual field testing Neuro and [facility] at [facility] annually. Health maintenance Colonoscopy 2017 Dr. Cuello with hyperplastic polyp Mammogram 01/18/24 BI-RADS BI-RADS 1 - Negative Pap 01/09/23 WNL DEXA 12/29/23 Osteopenia (repeat in 2years) Tdap and Flu UTD. Shingles shot x 1 Liver Elastography: Hepatic Steotosis otherwise WNL Here today for routine fu Mood remains good on current dose of Duloxetine Sleep study - rescheduled and pending BP cont to be the same, on lisinopril 5 mg Lipids are better - intentional wt loss Denies chest pain, sob, swelling in lower ext Eyes: just had eye exam just started on steroid eye gtt for dry eyes thought caused by contact; has fu in 2 weeks Left eye hurts all the time Reviewed w/ her today Labs from 08/21/2024 show hemoglobin A1c of 5%, normal electrolytes, normal renal function, calcium 10.4, bilirubin 1.1, normal AST, ALT 36, total cholesterol 210, LDL 127, triglycerides 102, HDL 63, TSH normal, normal urine microalbumin creatinine ratio Plan Continue all meds as currently prescribed. If you decide to decrease her lisinopril to 2.5 mg which I am okay with please send me at no on the portal and monitor blood pressure at home. As of right now her blood pressure is at goal. Continue follow up with wealth management consultant Continue lifestyle modifications as this has shown improvement in your lipid profile Your labs did show an incidental mild elevation in your calcium. As of this time her vitamin-D is pending and this could be a result of a low vitamin-D. Once this result is available I will send you a message on the portal. Otherwise reviewed diet, including dairy and calcium products. Specimen may have been hemolyzed although it was not noted. Little concern for clinical significance as of this time Needs refill on all meds except Duloxetine, sent today. I will fu with sleep study results once back Return to office in 6 months for complete physical exam, sooner as needed Fasting labs ordered to be done 1 week before, please. This note is constructed using voice recognition software. While every effort has been made to ensure accuracy in tipple tender, still errors may have been included Sometimes, these errors may affect the content or meaning of the given sentence . Total time spent caring for the patient today was 30 minutes. 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 Myalgia COVID-19 virus infection Nephrolithiasis Mixed hyperlipidemia Psoriasis of scalp Surgical History Hx laparoscopic cholecystectomy Family History Father Brain hemangioma Mother Hereditary breast and ovarian cancer syndrome associated with mutation in BRCA2 gene AAA (abdominal aortic aneurysm) Maternal Grandmother Breast cancer Paternal Grandfather Throat cancer Paternal Grandmother CVA (cerebral vascular accident) Brother Multiple sclerosis HTN (hypertension) Social History Housing: House Alcohol intake: current Alcohol intake frequency: a few times a month Patient Tobacco Use Status: Never used Tobacco e-Cigarette/Vaping Use: Never Used Second Hand Smoke Exposure: No service: No Current occupational status: employed 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 How many drinks containing alcohol do you have on a typical day when you are drinking?: 3 or 4 3. How often do you have six or more drinks on one occasion?: Never Total Score: 1 HEBERT-7 AMB Questionnaire HEBERT-7 Date HEBERT - 7 assessed: 12/15/23 Source: Developed by Drs. Pedro Resendez, Celina Quijano, Francisco Root and colleagues, with an educational batool from [email or web address]. Physical exam (Primary Care) Vital Signs: Last Vital Signs Pulse 78 08/21/24 15:38 Resp 14 08/21/24 15:38 BP 138/76 08/21/24 15:38 Pulse Ox 97 08/21/24 15:38 Oxygen Delivery Method Room Air 08/21/24 15:38 BMI result Body Mass Index 30.7 Tobacco/Smoking Status: Tobacco use Status Tobacco use date assessed 02/19/24 08/21/24 15:18 Patient Tobacco Use Status Never used Tobacco 08/21/24 15:18 e-Cigarette/Vaping Use Never Used 08/21/24 15:18 Thrive Assessment: Date of Thrive Assessment Date Thrive assessed 12/15/23 08/21/24 15:18 Coding Level of Care Code Est Pt Level 4 (09831) Complex EM visit Add On G2211 Diagnoses Essential hypertension I10 Dimitry's disease E06.3 Dyslipidemia E78.5 Osteopenia after menopause M85.80; Z78.0 Fatty liver K76.0 Menopause Z78.0 Assessment & Plan Assessment & Plan (1) Essential hypertension: Comment: Goal < 130/80 at this time cont 5mg..., however ok to Decrease lisinopril from 5mg/day to 2.5mg/day monitor BP x 2 weeks if ok, trial stop. If > 130/80 will need to restart. Keep me updated on the portal, please. Code(s): I10 - Essential (primary) hypertension Category: Medical Plan: . (2) Dimitry's disease: Comment: Previously: Normal TSH & Vit D levels Vit D level > 40 on supplement, will have her d/c and will cont to monitor. Cont monitoring - results pending VIt D Code(s): E06.3 - Autoimmune thyroiditis Category: Medical Plan: . (3) Dyslipidemia: Comment: Improvement in Lipid profile w/o medications LDL Goal < 70 Cont to monitor Code(s): E78.5 - Hyperlipidemia, unspecified Category: Medical Plan: . (4) Osteopenia after menopause: Comment: dexa 2017 femoral neck osteopenia dexa 12/2023 osteopenia with normal Ca and Vit D levels. Recheck in 2025, cont wt bearing movements Code(s): M85.80 - Other specified disorders of bone density and structure, unspecified site; Z78.0 - Asymptomatic menopausal state Category: Medical Plan: . (5) Fatty liver: Comment: chronic elevated in LFTs. US 02/2023 showed fatty liver. 03/21/24 Liver Elastography normal except hepatic steotosis Code(s): K76.0 - Fatty (change of) liver, not elsewhere classified Category: Medical Plan: . (6) Menopause: Code(s): Z78.0 - Asymptomatic menopausal state Category: Medical Plan: . Plan . Orders: Orders Complete Blood Count no Diff 01/12/25 E06.3 - Autoimmune thyroiditis, E78.5 - Hyperlipidemia, unspecified, I10 - Essential (primary) hypertension, K76.0 - Fatty (change of) liver, not elsewhere classified, M85.80 - Other specified disorders of bone density and structure, unspecified site, Z78.0 - Asymptomatic menopausal state Vitamin D 25-OH Total 01/12/25 E06.3 - Autoimmune thyroiditis, E78.5 - Hyperlipidemia, unspecified, I10 - Essential (primary) hypertension, K76.0 - Fatty (change of) liver, not elsewhere classified, M85.80 - Other specified disorders of bone density and structure, unspecified site, Z78.0 - Asymptomatic menopausal state Vitamin B12 and Folate 01/12/25 E06.3 - Autoimmune thyroiditis, E78.5 - Hyperlipidemia, unspecified, I10 - Essential (primary) hypertension, K76.0 - Fatty (change of) liver, not elsewhere classified, M85.80 - Other specified di sorders of bone density and structure, unspecified site, Z78.0 - Asymptomatic menopausal state Comprehensive [place]. Panel Fast 01/12/25 E06.3 - Autoimmune thyroiditis, E78.5 - Hyperlipidemia, unspecified, I10 - Essential (primary) hypertension, K76.0 - Fatty (change of) liver, not elsewhere classified, M85.80 - Other specified disorders of bone density and structure, unspecified site, Z78.0 - Asymptomatic menopausal state Hemoglobin A1c 01/12/25 E06.3 - Autoimmune thyroiditis, E78.5 - Hyperlipidemia, unspecified, I10 - Essential (primary) hypertension, K76.0 - Fatty (change of) liver, not elsewhere classified, M85.80 - Other specified disorders of bone density and structure, unspecified site, Z78.0 - Asymptomatic menopausal state Lipid Panel 01/12/25 E06.3 - Autoimmune thyroiditis, E78.5 - Hyperlipidemia, unspecified, I10 - Essential (primary) hypertension, K76.0 - Fatty (change of) liver, not elsewhere classified, M85.80 - Other specified disorders of bone density and structure, unspecified site, Z78.0 - Asymptomatic menopausal state Microalbumin, Random (w Creat) 01/12/25 E06.3 - Autoimmune thyroiditis, E78.5 - Hyperlipidemia, unspecified, I10 - Essential (primary) hypertension, K76.0 - Fatty (change of) liver, not elsewhere classified, M85.80 - Other specified disorders of bone density and structure, unspecified site, Z78.0 - Asymptomatic menopausal state TSH reflex Free T4 01/12/25 E06.3 - Autoimmune thyroiditis, E78.5 - Hyperlipidemia, unspecified, I10 - Essential (primary) hypertension, K76.0 - Fatty (change of) liver, not elsewhere classified, M85.80 - Other specified disorders of bone density and structure, unspecified site, Z78.0 - Asymptomatic menopausal state Medications: Refilled lisinopril 5 mg PO DAILY 90 tabs 1RF omeprazole 20 mg PO DAILY 90 caps 1RF ibuprofen 800 mg PO TID 30 tabs 2RF
[2024-08-21 15:38] VITALS: BP 138/76; PULSE 78; RESP 14; O2SAT 97; BMI 30.7
[2024-08-21 16:05] VITALS: BP 118/62
== END 2024-08-21 16:11 | disposition home or self-care (01) ==
PROVIDERS: PCP Nurse Practitioner Family; Visit Provider Nurse Practitioner Family
DX: I10 Essential (primary) hypertension (principal); E06.3 Autoimmune thyroiditis; E78.5 Hyperlipidemia, unspecified; M85.80 Other specified disorders of bone density and structure, unspecified site; Z78.0 Asymptomatic menopausal state; K76.0 Fatty (change of) liver, not elsewhere classified

== ENCOUNTER → 2024-09-17 08:06 | Outpatient (REF) | payer BC, SELFPAY | LOC: HO.SL 08:06 | PROVIDERS: PCP Nurse Practitioner Family; Visit Provider Nurse Practitioner Family | DX: R06.81 Apnea, not elsewhere classified (principal); R06.83 Snoring; G47.10 Hypersomnia, unspecified | CPT/HCPCS: 95806 ==

== ENCOUNTER → 2024-09-17 08:11 | Outpatient (BNV) | payer BC, SELFPAY | PROVIDERS: PCP Nurse Practitioner Family; Visit Provider Internal Medicine | DX: G47.33 Obstructive sleep apnea (adult) (pediatric) (principal) | CPT/HCPCS: 95806 ==

== ENCOUNTER 2025-02-19 07:21 | Outpatient (REF) | payer BC, SELFPAY ==
[2025-02-19 08:53] LABS: Hematocrit 44.6 % (37.0-47.0); Mean Corpuscular HGB Conc 33.6 g/dl (31.0-35.0); Mean Corpuscular Hemoglobin 30.5 pg (27.0-33.0); Mean Corpuscular Volume 90.8 fL (80.0-98.0); Platelet Count 279 X10*3/uL (160-400); Red Blood Count 4.91 X10*6/uL (4.20-5.50); Red Cell Distribution Width 12.3 % (11.0-16.0); White Blood Count 5.5 X10*3/uL (4.8-10.8)
[2025-02-19 09:31] LABS: Alanine Aminotransferase 37 U/L (0-31); Albumin Level 4.1 g/dL (3.5-5.0); Alkaline Phosphatase 76 U/L (39-117); Anion Gap 13 (12-20); Aspartate Amino Transferase 28 U/L (5-31); Bilirubin Total 0.8 mg/dL (0.0-1.0); Blood Urea Nitrogen 20 mg/dL (9-16); Calcium 9.4 mg/dL (8.4-10.2); Carbon Dioxide 25 mmol/L (22-29); Chloride 109 mmol/L (96-108); Cholesterol 204 mg/dL (<200); Estimated Glomerular Filt Rate > 60; Glucose Fasting 81 mg/dL (60-99); HDL Cholesterol 62 mg/dL (>40); LDL Cholesterol Calculated 125 mg/dL (<100); Sodium 143 mmol/L (135-145); Total Protein 7.3 g/dL (6.5-8.0); Triglycerides 85 mg/dL (<150)
[2025-02-19 09:33] LABS: Estimated Average Glucose 100 mg/dL; Hemoglobin A1c % 5.1 % (<6.0); Total Hemoglobin (HGBA1C) 3931.7169 umol/L
[2025-02-19 09:39] LABS: TSH reflex Free T4 2.11 uIU/mL (0.32-4.0); Vitamin D 25-OH Total 40.6 ng/mL (>30)
[2025-02-19 09:49] LABS: Vitamin B12 542 pg/mL (200-900)
[2025-02-19 10:05] LABS: Creatinine Urine 142.88 mg/dL; Microalbum/Creatinine Ratio Ur 4.8 ug/mg cr (<30)
== END 2025-02-19 07:22 | disposition home or self-care (01) ==
LOC: HO.LAB 07:21
PROVIDERS: PCP Nurse Practitioner Family; Visit Provider Nurse Practitioner Family
DX: I10 Essential (primary) hypertension (principal); K76.0 Fatty (change of) liver, not elsewhere classified; M85.80 Other specified disorders of bone density and structure, unspecified site; Z78.0 Asymptomatic menopausal state; E78.5 Hyperlipidemia, unspecified; E06.3 Autoimmune thyroiditis; Z13.1 Encounter for screening for diabetes mellitus
CPT/HCPCS: 36415; 80053; 80061; 82043; 82306; 82570; 82607; 82746; 83036; 84443; 85027

== ENCOUNTER 2025-02-20 07:51 | Outpatient (AMB) | payer BC, SELFPAY ==
--- OUTSIDE RECORDS SUMMARY | 2025-02-20 07:55 | XMS_ITS | Clinical Summary ---
Author Organization [facility] Address [address] [place] [address] Care Team Providers Care Programming Internship Name Role Phone Cira Toussaint MD Primary Care Provider Allergies Active Allergy Reactions Criticality Noted Date Comments Penicillins Rash 09/25/2018 Sulfa (Sulfonamide Antibiotics) Rash 09/07 Medications omeprazole (PriLOSEC) 20 mg capsule Take 20 mg by mouth daily as needed (GERD). 3 8 Active ibuprofen (MOTRIN) 800 mg tablet TK 1 T PO TID PRF PAIN OR FEVER 0 Active estradioL (ESTRACE) 0.01 % (0.1 mg/gram) vaginal cream I 1 GRAM VAGINALLY 2 TIMES A WK [address] (CYMBALTA) 20 mg capsule Take 20 mg by mouth daily. 0 Active lisinopriL (PRINIVIL,ZESTR IL) 5 mg tablet Take 5 mg by mouth once a day. 2 Active caloric supplement (NUTRITIONAL SUPPLEMENT-GUILLERMO CHACORTA ORAL) Take 1 Dose by mouth once a day. [place] by Plexus Active cetirizine (ZyrTEC) 10 mg tablet Take 10 mg by mouth daily as needed. 2 Active cholecalciferol (VITAMIN D3) 1,250 mcg (50,000 unit) capsule Take 50,000 Units by mouth once a week. 2 Active Active Problems Problem Noted Date Diagnosed Date Meningioma 07/03/2019 Cerebral meningioma 09/25/2018 Family History Medical History Relation Name Comments Multiple sclerosis Brother Hyperlipidemia Father Hypertension Father Breast cancer Mother Hypertension Mother Ovarian cancer Mother Relation Name Status Comments Brother Father Alive Hx of meningiom as as well Mother Social History Tobacco Use Types Packs/Day Years Used Date Smoking Tobacco: Never Smokeless Tobacco: Never Tobacco Cessation:Counseling Given: Not Answered Alcohol Use Standard Drinks/Week Comments Yes 1 (1 standard drink = 0.6 oz pur e alcohol) 1-2 per week Comments No Sex and Gender Information Value Date Recorded Sex Assigned at Female 12/14/2021 3:26 PM EST Legal Sex Female 11:21 AM EDT Gender Identity Female 12/14/2021 3:26 PM EST Sexual Orientation Straight 12/14/2021 3: 26 PM EST Last Filed Vital Signs Vital Sign Reading Time Taken Comments Blood Pressure 135/82 10/17/2023 2:41 PM EST Pulse 72 10/17/2023 2:41 PM EST Temperature 35.8 ??C (96.4 ??F) 11/02/2022 2:58 PM ES T Respiratory Rate 18 10/17/2023 2:41 PM EST Oxygen Saturation 98% 10/17/2023 2:41 PM EST Inhaled Oxygen Concentration - - Weight 87.1 kg (192 lb) 04/06/2022 3:07 PM EDT Height 165.1 cm (5' 5 ) 04/06/2022 3:07 PM EDT Body Mass Index 31.95 04/06/2022 3:07 PM EDT Plan of Treatment Health Maintenance Due Date Last Done Comments Cervical Cancer Screening 1967 Cologuard 1967 Colon Cancer Screening 1967 Colonoscopy 1967 FOBT / Fit Test 1967 HIV Screening 1967 HPV and Pap Smear 1967 Hepatitis C Screening 1967 Pap Smear 1967 Sigmoidoscopy 1967 Mammogram 2007 Pneumococcal Vaccine: 50+ Ye ars (1 of 1 - PCV) 2017 Hepatitis B Vaccines (3 of 3 - 19+ 3-dose series) 02/25/2021 12/31/2020, 08/06/1992 COVID-19 Vaccine (4 - 2023-2 5 season) 2024 09/06/2021, 12/16/2020, 11/18/2020 Alcohol/Substance Use Screening 11/06/2024 Depression Screening and Follow-Up 11/06/2024 Social Drivers of Health Teresa ual Screening 11/06/2024 DTaP,Tdap,and Td Vaccines (2 - Td or Tdap) 10/17/2029 10/17/2019 RSV Vaccine (60+ years old a nd patients) (1 - 1-dose 75+ series) 2042 Influenza Vaccine Completed 07/31/2024, , 08/28/2022, Additional history exists Zoster Vaccines Completed 09/09/2024, 06/04/2024 Insurance [facility] HMO/POS Care Teams Programming Internship Relationship Specialty Start Date End Date Cira Toussaint MD [address] [facility] [place] [address] PCP - General Internal Medicine 04/23/20
--- OUTSIDE RECORDS SUMMARY | 2025-02-20 07:55 | XMS_ITS | Referral Summary ---
Author Organization [facility] Address [address] [place] [address] Care Team Providers Care Dietary Services Manager Name Role Phone Cira Toussaint MD Primary [...] Diagnosed Date Meningioma 07/03/2019 Cerebral meningioma 09/25/2018 Social History Tobacco Use Types Packs/Day Years [...] 04/06/2022 3:07 PM EDT Plan of Treatment Not on file Insurance [facility] HMO/POS Care Teams Dietary Services Manager Relationship Specialty Start Date End Date Cira Toussaint MD [address] [facility] [place] [address] PCP - General Internal Medicine 04/23/20
--- NOTE | 2025-02-20 07:57 | A.OFFPC_ITS ---
Vital Signs 02/20/25 08:02 Height 5 ft 5 in Weight 180 lb 8 oz BMI 30.0 BP 102/69 Blood Pressure Location Lt brachial Position Sitting Respiration 12 Pulse 86 Pulse Source Pulse Oximeter Temp 97.3 F Temp Source Oral Pulse Oximetry (%) 96 Oxygen Delivery Method Room Air Intake Visit Reasons: 6 months CPE Intake Note: CPE Air Filler Required: No Allergies kiwi [KIWI] Allergy (Unknown, Verified 02/20/25 07:59) SHORTNESS OF BREATH Penicillins [PENICILLINS] Allergy (Unknown, Verified 02/20/25 07:59) RASH scallops [SCALLOPS] Allergy (Unknown, Verified 02/20/25 07:59) SHORTNESS OF BREATH Sulfa (Sulfonamide Antibiotics) [Sulfa(Sulfonamide Antibiotics)] Allergy (Unknown, Verified 02/20/25 07:59) UNKNOWN, rash, rash Medication List - Last Reconciled 02/20/25 by Cheri Crespo, CARPENTER ASSISTANT- duloxetine 40 mg (2 x 20 mg) PO DAILY 3 months estradiol 0.01%(0.1mg/gram) 1 g vaginal 2XW ibuprofen 800 mg PO TID lansoprazole 15 mg PO DAILY lisinopril 5 mg PO DAILY Tobacco use date assessed: 02/20/25 Dental Screening Dental Screen Date: 02/20/25 Did you have a dental visit in the last 12 months?: Yes Did you have a dental problem in the last 6 months where you did not have access to dental care?: No Was dental information given to patient?: Patient has dentist HPI HPI Comments History of Present Illness Details 59-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 - Her daughter is with 2nd chil d, due in October Specialists Endocrinology > cleared ENT active for allergy shots Orthopedics no longer ff'd rn gyn - 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 Optho - has q 6 mo visual field testing Neuro and MRI at [facility] annually. Health maintenance Colonoscopy 2017 Dr. Cuello with hyperplastic polyp, repeat 10 years 2027 Mammogram 12/20/23 BI-RADS BI-RADS 1 - Negative, will call to schedule Pap 01/09/23 WNL DEXA 12/29/23 Osteopenia (repeat in 2 years) Tdap and Flu UTD. Liver Elastography: Hepatic Steotosis otherwise WNL Here today for CPE: Sinus pressure and headache, ears feel blocked; did have thick green mucous but this has gotten better. Exposed to sick kids at work. Tried sudafed and otc meds w/ relief, sudafed and apap provide best relief. Gets allergy shots. Getting on plane Monday Denies fever, chills. Sleep study 09/2024: Mild obstructive sleep apnea has been previously docume nted; positional changes have been trialed with limited indication of improvement. Would like to repeat the sleep study. HTN: Every time forgot to take Lisinopril for a few days, BP was elevated. No chest pain, sob or hypotension. Losing weight. Did trial Zepbound. Got sick. May trial Wegovy. Doing water aerobics. Likes this Rheum - chronic joint aches and pains; not active w/ Rheum. HLD - improved w/o statin, + wt loss. Trial citrus bergomot. Mood is good on Cymbalta - Gastroesophageal reflux disease experi enced, managed with omeprazole; experienced insurance issues with lansoprazole. Taking twice per week with good effect. - Describes presbyopia with reading diff iculties; managing vision with glasses due to contact lens incompatibility after an infection. - Seasonal allergies managed with multip le [id number] medications with Sudafed being notably effective. - Wonders if immune to Measles. 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 - Respiratory: Denies shortness of breat h. - Cardiovascular: Denies chest pain. - Gastrointestinal: Reports gastroesopha geal reflux disease symptoms and rare diarrhea. - Musculoskeletal: Reports joint pain. - Neurologic: Denies sleep disturbances apart from known obstructive sleep apnea. - Psychological: Denies mood disturbance s. - General: Reports recent mild illness w ith flu-like exposure; Denies recent illness symptoms. Exam General: Well developed, well nourished, in no acute distress. Appears stated age. Head: Normocephalic, atraumatic. Eyes: Pupils are equal, round and reactive to light and accommodation. Conjunctivae clear bilat. Vision grossly normal. Ears: TMs intact bilat, + clouding on R, dull on L, Bilat EACS WNL Nose: Patent, without discharge. Mild nasal congestion and max sinus tenderness bilat, turbinates pale, no edema Mouth: There are no ulcers or lesions noted. No inflammation, no post nasal drip, no plaques nor exudates. Neck: Supple, no adenopathy or thyromegaly. Lungs: Clear to auscultation bilaterally. No rales, rhonchi or wheeze noted. Good air flow in all ivvar. Heart: Regular rate and rhythm. No murmurs, click, rubs or gallops are noted. Abdomen: Bowel sounds present in all quadrants. The abdomen is soft, with no masses or organomegaly noted. No hernias are noted. Musculoskeletal: Joints are nontender, without swelling, redness, or effusions. Range of motion is observed to be normal. Pulses: Peripheral pulses are equal and palpable bilaterally. Extremities: No clubbing, cyanosis nor edema is noted. Neurologic: Gait and station normal. Cranial Nerves 2-12 intact. Motor strength grossly symmetrical and intact. No sensory loss. Balance normal. Skin: No rashes, ulcers, or lesions noted. Turgor is good. Skin color is good. Hair and nails are without abnormalities. Psych: Normal eye contact, affect and mood appropriate, and normal interactions. Patient is alert and appropriate to context Results: See below. - Labs: Calcium levels retested and foun d to be within normal range. Previous labs indicated mild hypercalcemia due to possible transport error. - Diagnostic Tests: Past sleep study ind icating mild obstructive sleep apnea. Previous normal liver ultrasound despite mild tenderness. - Improving LDL w/o statin Discussion I discussed with the patient the recurrence of sinusitis and the impact of exposure to seasonal illnesses. For her sinusitis, preventive measures and symptomatic relief strategies, including Afrin, were discussed for use particularly when flying. Mild obstructive sleep apnea from a prior sleep study was reviewed, and I agreed to repeat the study due to persistent symptoms. We also reviewed managing mild hypertension with Lisinopril and alternate weight management options. For gastrointestinal symptoms, we discussed the insurance issues affecting omeprazole and backed up treatment with lansoprazole. We examined health maintenance, addressing pending mammogram scheduling, and considered non-pharmacologic methods for cholesterol management, discussing citrus bergamot supplements. Additionally, potential MMR booster requirement was noted, with immunity assessment through titers suggested. A&P Sinusitis I suspect a bacterial sinus infection due to patient history and symptoms, recommending an antibiotic course with cefaclor and intermittent Afrin usage pre-flight to manage congestion during flying. + Flonase Mild Obstructive Sleep Apnea We discussed repeating the sleep study due to persistent apnea symptoms, with arrangements to verify the necessity for continued interventions. Hypertension Stabilization on Lisinopril was noted; continued monitoring and lifestyle modifications are encouraged to manage fluctuations. Weight Management Emphasized non-pharmacological weight loss strategies, utilizing exercise routines, Weight Watchers, HLD: though improving, consider alternatives like citrus bergamot. Gastroesophageal Reflux Disease Addressed coverage issues by switching back to alternate lansoprazole, ensuring ongoing GERD symptom management. Patient Instructions: - Use Afrin no more than 30 minutes befo re flights; not for regular use. - Complete prescribed antibiotic course for bacterial sinusitis. - Maintain Lisinopril as prescribed and monitor blood pressure. - Continue weight management via regular exercise and dietary care; - consider citrus bergamot for cholester ol - Follow up with the laboratory for MMR titers if previous results are unavailable. - Cont all meds and care w/ care team RTO 6 mo with labs 1 week before HLD, HTN, Mood sooner PRN An additional 30 minutes was spent addressing the problem(s) noted at todays visit. This includes time spent before the visit reviewing the chart, time spent during the visit, and time spent after the visit on documentation reviewing laboratory results, diagnostic imaging, medications, performing a medically necessary evaluation, counseling on diagnoses, care coordination, ordering appropriate tests, ordering appropriate medications, review of tests performed by other providers, reporting test results with the patient, communication with other healthcare providers. Consent: Patient was informed and verbally consented to the use of an ambient scribe for clinic note documentation during this visit. 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 Myalgia COVID-19 virus infection Nephrolithiasis Mixed hyperlipidemia Psoriasis of scalp Surgical History History of colonoscopy (~2018) Hx laparoscopic cholecystectomy Family History Father Brain hemangioma Mother Hereditary breast and ovarian cancer syndrome associated with mutation in BRCA2 gene AAA (abdominal aortic aneurysm) Maternal Grandmother Breast cancer Paternal Grandfather Throat cancer Paternal Grandmother CVA (cerebral vascular accident) Brother Multiple sclerosis HTN (hypertension) Social History Housing: House Alcohol intake: current Alcohol intake frequency: a few times a month Patient Tobacco Use Status: Never used Tobacco e-Cigarette/Vaping Use: Never Used Second Hand Smoke Exposure: No service: No Current occupational status: employed 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 1. Little interest or pleasure in doing things: not at all 2. Feeling down, depressed, or hopeless: not at all 3. Trouble falling or staying asleep, or sleeping too much: not at all 4. Feeling tired or having little energy: not at all 5. Poor appetite or overeating: not at all 6. Feeling bad about yourself - or that you are a failure or have let yourself or your family down: not at all 7. Trouble concentrating on things, such as reading the newspaper or watching television: not at all 8. Moving or speaking so slowly that other people could have noticed. Or the opposite - being so fidgety or restless that you have been moving around a lot more than usual: not at all 9. Thoughts that you would be better off or of hurting yourself in some way: not at all Total score: 0 Depression Screening Interpretation: Negative Depression Screening Done: Yes 23042 - PHQ-9 Billing: Yes Source: Developed by Drs. Pedro Resendez, Celina Quijano, Francisco Root and colleagues, with an educational batool from [employer]. Thrive Questionnaire Date Thrive assessed: 02/20/25 I am a: Patient What is your living situation today?: I have a steady place to live Within the past 12 months, did the food you bought not last and you didn't have the money to get more?: Never true Within the past 12 months, did you worry whether your food would run out before you got money to buy more?: Never true Do you have trouble paying for medicines?: No Do you have trouble getting transportation to medical appointments?: No Do you have trouble paying your heating and electricity bill?: No Do you have trouble taking care of your child, family member or friend?: No Do you have trouble with day-to-day activities such as bathing, preparing meals, shopping, managing finances, etc.?: No Are you currently unemployed and looking for a job?: No Are you interested in more education?: No Please select the resources that you would like help with: None Currently or been in a relationship where the following occur: No concerns reported THRIVE Score: 0 AUDIT C Alcohol Use Questionnaire (AUDIT-C) 1. How often do you have a drink containing alcohol?: 2-4 times a month 2. How many drinks containing alcohol do you have on a typical day when you are drinking?: 3 or 4 3. How often do you have six or more drinks on one occasion?: Never Total Score: 3 Score Reviewed/Action Taken: Yes HEBERT-7 AMB Questionnaire HEBERT-7 Date HEBERT - 7 assessed: 02/20/25 Feeling nervous, anxious, or on edge: 0 = Not at all Not being able to stop or control worryin = Not at all Worrying too much about different things: 0 = Not at all Trouble relaxin = Not at all Being so restless that it is hard to sit still: 0 = Not at all Becoming easily annoyed or irritable: 0 = Not at all Feeling afraid as if something awful might happen: 0 = Not at all Total HEBERT-7 score (0-4 normal; 5-9 mild; 10-14 moderate; 15-21 severe): 0 Source: Developed by Drs. Pedro Resendez, Celina Quijano, Francisco Root and colleagues, with an educational batool from [employer]. HEBERT-7 Assessment Billing HEBERT-7 Assessment Tool: HEBERT-7 Assessment 06026 Physical exam (Primary Care) Vital Signs: Last Vital Signs Temp 97.3 F 02/20/25 08:02 Pulse 86 02/20/25 08:02 Resp 12 02/20/25 08:02 BP 102/69 02/20/25 08:02 Pulse Ox 96 02/20/25 08:02 Oxygen Delivery Method Room Air 02/20/25 08:02 BMI result Body Mass Index 30.0 BMI Assessment/Plan discussion: High BMI High, discussed plan: lifestyle Tobacco/Smoking Status: Tobacco use Status Tobacco use date assessed 02/20/25 02/20/25 08:01 Patient Tobacco Use Status Never used Tobacco 02/20/25 08:01 e-Cigarette/Vaping Use Never Used 02/20/25 08:01 PHQ-9: PHQ-9 Score PHQ-9: Total score 0 02/20/25 08:07 Depression Screening Interpretation: Negative Thrive Assessment: Date of Thrive Assessment Date Thrive assessed 02/20/25 02/20/25 08:01 Currently or been in a relationship where the following occur: No concerns reported Results Reviewed Results Reviewed: Laboratory Result Units Range Interpretation Provider Comments White Blood Count 5.5 X10*3/uL (4.8-10.8) Red Blood Count 4.91 X10*6/uL (4.20-5.50) Hemoglobin 15.0 g/dl (12.0-16.0) Hematocrit 44.6 % (37.0-47.0) Mean Corpuscular Volume 90.8 fL (80.0-98.0) Mean Corpuscular Hemoglobin 30.5 pg (27.0-33.0) Mean Corpuscular Hemoglobin Concent 33.6 g/dl (31.0-35.0) Red Cell Distribution Width 12.3 % (11.0-16.0) Platelet Count 279 X10*3/uL (160-400) Mean Platelet Volume 10.0 fL (9.4-12.3) Nucleated RBC Absolute Count (auto) 0.000 X10*3/uL (0.0-0.012) Nucleated Red Blood Cells % (auto) 0.0 /100WBC (0.0-0.2) Sodium Level 143 mmol/L (135-145) Potassium Level 4.0 mmol/L (3.3-5.1) Chloride Level 109 mmol/L (96-108) High Carbon Dioxide Level 25 mmol/L (22-29) Anion Gap 13 (12-20) Blood Urea Nitrogen 20 mg/dL (9-16) High Creatinine 0.92 mg/dL (0.5-1.4) Estimated Creatinine Clearance Calc Not Reportable Estimat Glomerular Filtration Rate > 60 Fasting Glucose 81 mg/dL (60-99) Estimated Average Glucose 100 mg/dL Hemoglobin A1c Percent 5.1 % (<6.0) Calcium Level 9.4 mg/dL (8.4-10.2) Delta Total Bilirubin 0.8 mg/dL (0.0-1.0) Aspartate Amino Transf (AST/SGOT) 28 U/L (5-31) Alanine Aminotransferase (ALT/SGPT) 37 U/L (0-31) High Alkaline Phosphatase 76 U/L (39-117) Total Protein 7.3 g/dL (6.5-8.0) Albumin 4.1 g/dL (3.5-5.0) Triglycerides Level 85 mg/dL (<150) Cholesterol Level 204 mg/dL (<200) High LDL Cholesterol, Calculated 125 mg/dL (<100) High HDL Cholesterol 62 mg/dL (>40) Vitamin B12 Level 542 pg/mL (200-900) 25-Hydroxy Vitamin D Total 40.6 ng/mL (>30) Folate 8.0 ng/mL (> or = 4.0) Thyroid Stimulating Hormone (TSH) 2.11 uIU/mL (0.32-4.0) Urine Creatinine 142.88 mg/dL Urine Microalbumin 7.0 mg/L Urine Microalbumin/Creatinine Ratio 4.8 ug/mg cr (<30) Coding Level of Care Code Est Pt Level 4 (76729) Est Pt Prev Care 40-64y(79325) Diagnoses Encounter for general adult medical examination with abnormal findings Z00.01 Obstructive sleep apnea syndrome G47.33 Sleep apnea type: obstructive Essential hypertension I10 Dyslipidemia E78.5 Fatty liver K76.0 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 E06.3 Moderate episode of recurrent major depressive disorder F33.1 Major depression recurrence: recurrent Active/Remission status: currently active Major depression episode severity: moderate Meningioma D32.9 Class 1 obesity due to excess calories with serious comorbidity and body mass index (BMI) of 30.0 to 30.9 in adult E66.811; E66.09; Z68.30 Obesity type: due to excess calories Obesity classification: adult class 1 (BMI 30 - 34.9) Serious obesity comorbidity presence: with serious comorbidity Body mass index: BMI 30.0-30.9 Osteopenia after menopause M85.80; Z78.0 Syrinx of spinal cord G95.0 Acute non-recurrent maxillary sinusitis J01.00 Sinusitis location: maxillary Recurrence: non-recurrent Additional Codes HEBERT-7 Assessment Billing - HEBERT-7 Assessment Tool: HEBERT-7 Assessment 40144 ([id number]) PHQ-9 - 22176 - PHQ-9 Billing: Yes ([id number]) Assessment & Plan Assessment & Plan (1) Encounter for general adult medical examination with abnormal findings: Code(s): Z00.01 - Encounter for general adult medical examination with abnormal findings (2) Sleep apnea: Comment: sleep study 09/2024 Code(s): G47.30 - Sleep apnea, unspecified Category: Medical Qualifiers: Sleep apnea type: obstructive Qualified Code(s): G47.33 - Obstructive sleep apnea (adult) (pediatric) (3) Essential hypertension: Comment: Goal < 130/80 at this time cont 5mg Code(s): I10 - Essential (primary) hypertension Category: Medical (4) Dyslipidemia: Comment: Improvement in Lipid profile w/o medications LDL Goal < 70 Cont to monitor start citrus bergomot Code(s): E78.5 - Hyperlipidemia, unspecified Category: Medical (5) Fatty liver: Comment: chronic elevated in LFTs. US 02/2023 showed fatty liver. 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 Cont monitoring - results pending VIt D Code(s): E06.3 - Autoimmune thyroiditis Category: Medical (8) MDD (major depressive disorder): Comment: Active with a counselor. Continue cymbalta 40mg QD. Cont w/ counselor. Code(s): F32.9 - Major depressive disorder, single episode, unspecified Category: Medical Qualifiers: Major depression recurrence: recurrent Active/Remission status: currently active Major depression episode severity: moderate Qualified Code(s): F33.1 - Major depressive disorder, recurrent, moderate (9) Meningioma: Comment: ff'd by Dr Dunn, and Dr Angeles at [facility] w/ annual MRI testing and q6 month visual field testing. Code(s): D32.9 - Benign neoplasm of meninges, unspecified Category: Medical (10) Obesity: Comment: htn hld Code(s): E66.9 - Obesity, unspecified Category: Medical Qualifiers: Obesity type: due to excess calories Obesity classification: adult class 1 (BMI 30 - 34.9) Serious obesity comorbidity presence: with serious comorbidity Body mass index: BMI 30.0-30.9 Qualified Code(s): E66.811 - Obesity, class 1; E66.09 - Other obesity due to excess calories; Z68.30 - Body mass index [BMI] 30.0-30.9, adult (11) Osteopenia after menopause: Comment: dexa 2018 femoral neck osteopenia dexa 12/2023 osteopenia with normal Ca and Vit D levels. Recheck in 2025, cont wt bearing movements Code(s): M85.80 - Other specified disorders of bone density and structure, unspecified site; Z78.0 - Asymptomatic menopausal state Category: Medical (12) Syrinx of spinal cord: Comment: Thoracic syrinx , ff'd by Dr Norberto De La Cruz Code(s): G95.0 - Syringomyelia and syringobulbia Category: Medical (13) Acute sinus infection: Code(s): J01.90 - Acute sinusitis, unspecified Qualifiers: Sinusitis location: maxillary Recurrence: non-recurrent Qualified Code(s): J01.00 - Acute maxillary sinusitis, unspecified Plan . Orders: Orders RT home sleep study Today G47.30 - Sleep apnea, unspecified, R06.83 - Snoring Comprehensive Met. Panel 6 Months E78.5 - Hyperlipidemia, unspecified, I10 - Essential (primary) hypertension, K76.0 - Fatty (change of) liver, not elsewhere classified Lipid Panel 6 Months E78.5 - Hyperlipidemia, unspecified, I10 - Essential (primary) hypertension, K76.0 - Fatty (change of) liver, not elsewhere classified Medications: Refilled duloxetine 40 mg (2 x 20 mg) PO DAILY 180 caps 3RF 3 months lisinopril 5 mg PO DAILY 90 tabs 1RF ibuprofen 800 mg PO TID 30 tabs 2RF cefaclor ER 500 mg PO Q12H 10 tabs 0RF Patient Instructions: [place] [facility] screenings for women You should visit your health care provider from time to time, even if you are healthy. The purpose of these visits is to: Screen for medical issues Assess your risk for future medical problems Encourage a healthy lifestyle Update vaccinations and other preventive care services Help you get to know your provider in case of an illness Information Even if you feel fine, you should still see your provider for regular checkups. These visits can help you avoid problems in the future. For example, the only way to find out if you have high blood pressure is to have it checked regularly. High blood sugar and high cholesterol levels also may not have any symptoms in the early stages. A simple blood test can check for these conditions. There are specific times when you should see your provider or receive specific health screenings. The [place] Preventive Services Task Force publishes a list of recommended screenings. Below are screening guidelines for women ages 18 to 39. BLOOD PRESSURE SCREENING Your blood pressure should be checked at least once every 3 to 5 years if: Your blood pressure is in the normal range (top number less than 120 mm Hg and bottom number less than 80 mm Hg) You don't have risk factors for high blood pressure Ask your provider if you need your blood pressure checked more often if: The top number is 120 to 129 mm Hg or the bottom number is 70 to 79 mm Hg You have diabetes, heart disease, kidney problems, are overweight, or have certain other health conditions You have a first-degree relative with high blood pressure You are Black You had high blood pressure during a If the top number is 130 mm Hg or greater or the bottom number is 80 mm Hg or greater, this is considered stage 1 hypertension. Schedule an appointment with your provider to learn how you can reduce your blood pressure. Watch for blood pressure screenings in your area. Ask your provider if you can stop in to have your blood pressure checked. BREAST CANCER SCREENING Experts do not agree about the benefits of breast self-exams in finding breast cancer or saving lives. Talk to your provider about what is best for you. A screening mammogram is not recommended for most women under age 40. Your provider may discuss and recommend mammograms, MRI scans, or ultrasounds if you have an increased risk for breast cancer, such as: A mother or sister who had breast cancer at a young age (most often starting screening earlier than the age the close relative was diagnosed) You carry a high-risk genetic marker CERVICAL CANCER SCREENING Cervical cancer screening should start at age 21 years unless your provider advises otherwise. After the first test: Women ages 21 through 29 should have a Pap test every 3 years. Exoprts do not agree on whether HPV testing is recommended for this age group. Women ages 30 through 65 should be screened with either a Pap test every 3 years or the HPV test every 5 years or both tests every 5 years (called cotesting ). Women who have been treated for precancer (cervical dysplasia) should continue to have Pap tests for 20 years after treatment or until age 65, whichever is longer. If you have had your uterus and cervix removed (total hysterectomy), and you have not been diagnosed with cervical cancer or precancer (high grade cervical neoplasia), you do not need cervical cancer screening. CHOLESTEROL SCREENING Cholesterol screening should begin at: Age 45 for women with no known risk factors for coronary heart disease Age 20 for women with known risk factors for coronary heart disease Repeat cholesterol screening should take place: Every 5 years for women with normal cholesterol levels More often if changes occur in lifestyle (including weight gain and diet) More often if you have diabetes, heart disease, kidney problems, or certain other conditions DIABETES SCREENING You should be screened for diabetes starting at age 35 and then repeated every 3 years if you have no risk factors for diabetes. Screening may need to start earlier and be repeated more often if you have other risk factors for diabetes, such as: You have a first degree relative with diabetes. You are overweight or have obesity. You have high blood pressure, prediabetes, or a history of heart disease. Screening for diabetes should be done if you are planning to become and you are overweight and have other risk factors such as high blood pressure. DENTAL EXAM Go to the dentist once or twice every year for an exam and cleaning. Your dentist will evaluate if you need more frequent visits. EYE EXAM Have an eye exam every 5 to 10 years before age 40. If you have vision problems, have an eye exam every 2 years or more often if recommended by your provider. You should have an eye exam that includes an examination of your retina (back of your eye) at least every year if you have diabetes. IMMUNIZATIONS Commonly needed vaccines include: Flu shot: get one every year. COVID-19 vaccine: ask your provider what is best for you. Tetanus-diphtheria and acellular pertussis (Tdap) vaccine: have one at or after age 19 as one of your tetanus-diphtheria vaccines if you did not receive it as an adolescent. Tetanus-diphtheria: have a booster (or Tdap) every 10 years. Varicella vaccine: receive 2 doses if you never had chickenpox or the varicella vaccine. Hepatitis B vaccine: receive 2, 3, or 4 doses, depending on your exact circumstances. Measles, mumps, and rubella (MMR) vaccine: receive 1 to 2 doses if you are not already immune to MMR. Your provider can tell you if you are immune. Ask your provider about the human papillomavirus (HPV) vaccine if: You have not received the HPV vaccine in the past You have not completed the full vaccine series (you should catch up on this shot) Ask your provider if you should receive other immunizations if you have certain health problems that increase your risk for some diseases such as pneumonia. INFECTIOUS DISEASE SCREENING Women who are sexually active should be screened for chlamydia and gonorrhea up until age 25. Women 25 years and older should be screened for chlamydia and gonorrhea if at high risk. Screening for hepatitis C: All adults ages 18 to 79 should get a one-time test for hepatitis C. people should be screened at every . Screening for human immunodeficiency virus (HIV): All people ages 15 to 65 should get a one-time test for HIV. Depending on your lifestyle and medical history, you may also need to be screened for infections such as syphilis and HIV, as well as other infections. PHYSICAL EXAM All adults should visit their provider from time to time, even if they are healthy. The purpose of these visits is to: Screen for disease Assess your risk of future medical problems Encourage a healthy lifestyle Update your vaccinations and other preventive care services Maintain a relationship with a provider in case of an illness Your height, weight, and BMI should be checked at every exam. During your exam, your provider may ask you about: Depression and anxiety Diet and exercise Alcohol and tobacco use Safety issues, such as using seat belts, smoke detectors, and intimate partner violence Your medicines and risk for interactions SKIN SELF-EXAM Your provider may check your skin for signs of skin cancer, especially if you're at high risk, such as if you: Have had skin cancer before Have close relatives with skin cancer Have a weakened immune system OTHER SCREENING Talk with your provider about colon cancer screening if you have a strong family history of colon cancer or polyps, or if you have had inflammatory bowel disease or polyps yourself. Routine bone density screening of women under 40 is not recommended.
[2025-02-20 08:02] VITALS: BP 102/69; PULSE 86; RESP 12; TEMP 36.3; O2SAT 96
== END 2025-02-20 08:52 | disposition home or self-care (01) ==
LOC: HO.HMCFM 07:52
PROVIDERS: PCP Nurse Practitioner Family; Visit Provider Nurse Practitioner Family
DX: Z00.01 Encounter for general adult medical examination with abnormal findings (principal); I10 Essential (primary) hypertension; G95.0 Syringomyelia and syringobulbia; F33.1 Major depressive disorder, recurrent, moderate; D32.9 Benign neoplasm of meninges, unspecified; G47.33 Obstructive sleep apnea (adult) (pediatric); E78.5 Hyperlipidemia, unspecified; K76.0 Fatty (change of) liver, not elsewhere classified; E03.1 Congenital hypothyroidism without goiter; E66.811 Obesity, class 1; E66.09 Other obesity due to excess calories; Z68.30 Body mass index [BMI] 30.0-30.9, adult

== ENCOUNTER → 2025-02-20 07:51 | Outpatient (BNVA) | payer BC, SELFPAY | PROVIDERS: PCP Nurse Practitioner Family; Visit Provider Nurse Practitioner Family | DX: Z00.01 Encounter for general adult medical examination with abnormal findings (principal); G47.33 Obstructive sleep apnea (adult) (pediatric); I10 Essential (primary) hypertension; E78.5 Hyperlipidemia, unspecified; K76.0 Fatty (change of) liver, not elsewhere classified; E03.1 Congenital hypothyroidism without goiter; E06.3 Autoimmune thyroiditis; F33.1 Major depressive disorder, recurrent, moderate; D32.9 Benign neoplasm of meninges, unspecified; E66.811 Obesity, class 1; E66.09 Other obesity due to excess calories; Z68.30 Body mass index [BMI] 30.0-30.9, adult; M85.80 Other specified disorders of bone density and structure, unspecified site; G95.0 Syringomyelia and syringobulbia; J01.00 Acute maxillary sinusitis, unspecified; Z79.899 Other long term (current) drug therapy | CPT/HCPCS: 96127 ==

== ENCOUNTER → 2025-05-05 10:00 | Outpatient (REF) | payer BC, SELFPAY ==
--- OUTSIDE RECORDS SUMMARY | 2025-05-05 10:37 | XMS_ITS | Patient Health Record ---
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 EVERY DAY for 30 Active Motrin IB 200 MG 1 tablet with food o r milk as needed Orally Three times a day Active Immunizations Vaccine Route Administration Date Status Comme nts Influenza Unknown 08/28/2018 Administered Social History Tobacco Use: Social History Observation Description Date Details (start date - stop date) Never Smoker NA - NA Tobacco Use/Smoking Question Answer Notes Patient is a nonsmoker Alcohol Screen Question Answer Notes Did you have a drink contain ing alcohol in the past year? Yes How often did you have a dri nk containing alcohol in the past year? 2 to 4 times a month (2 points) How many drinks did you have on a typical day when you were drinking in the past year? 1 or 2 drinks (0 point) How often did you have 6 or more drinks on one occasion in the past year? Never (0 point) Points 2 Interpretation Negative Section Notes: Nonsmoker; no sig alcohol Nonsmoker; no sig alcohol Problems Problem Type SNOMED Code ICD Code Onset Dates Problem Status W/U Status Risk Notes Problem 939091836 Encounter for screening for malignant neoplasm of colon (Z12.11) Active confirmed Problem 350429981 Nausea (R11.0) Active confirmed Problem 756585351 Gastroesophageal reflux disease with esophagitis (K21.0) Active confirmed Problem 35431143 Hiatal hernia (K44.9) Active confirmed Plan Of Treatment Future Test Test Name Order Date UPPER GI ENDOSCOPY 05/17/2018 COLONOSCOPY 05/17/2018 Insurance Providers Payer Name Payer Address Payer Phone Subscriber Number Group Number Insured Name Patient Relationship to Insured Coverage Start Date Coverage End Date UMR [address] [address] [place] [address] [id number] SIENA SANTILLAN Self - patient is the insured Medical (General) History Medical History History ICD Code Denies [place],DM,CVA,Lung disease,renal dise ase EGD-07/2018 small to moderate -sized hiatal hernia and mild reflux esophagitis, gastric biopsies were negative for H. pylori, and esophageal biopsies were negative for Elias's esophagus Negative screening colonoscopy in 2017 Surgical History Surgery Date(Month/Year) Cholecystectomy 2007 breast biopsy--benign 1999
== END ==
LOC: HO.SL 10:00
PROVIDERS: PCP Nurse Practitioner Family; Visit Provider Nurse Practitioner Family
DX: G47.33 Obstructive sleep apnea (adult) (pediatric) (principal); R06.83 Snoring; G47.30 Sleep apnea, unspecified
CPT/HCPCS: 95806

== ENCOUNTER → 2025-05-05 10:13 | Outpatient (BNV) | payer BC, SELFPAY | PROVIDERS: PCP Nurse Practitioner Family; Visit Provider Internal Medicine | DX: G47.33 Obstructive sleep apnea (adult) (pediatric) (principal) | CPT/HCPCS: 95806 ==

== ENCOUNTER 2025-05-15 15:27 | Outpatient (AMB) | payer BC, SELFPAY ==
--- NOTE | 2025-05-15 15:22 | MHC.PC.OV ---
Intake Visit Reasons: sleep study review Intake Note: Sleep study results. Allergies kiwi (KIWI) Allergy (Unknown, Verified 02/20/25 07:59) SHORTNESS OF BREATH Penicillins (PENICILLINS) Allergy (Unknown, Verified 02/20/25 07:59) RASH scallops (SCALLOPS) Allergy (Unknown, Verified 02/20/25 07:59) SHORTNESS OF BREATH Sulfa (Sulfonamide Antibiotics) (Sulfa(Sulfonamide Antibiotics)) Allergy (Unknown, Verified 02/20/25 07:59) UNKNOWN, rash, rash Medication List - Last Reconciled 05/15/25 by Cheri Crespo, DIGITAL ASSOCIATE MEDIA DIRECTOR- duloxetine 40 mg (2 x 20 mg) PO DAILY 3 months estradiol 0.01%(0.1mg/gram) 1 g vaginal 2XW ibuprofen 800 mg PO TID PRN lansoprazole 15 mg PO DAILY lisinopril 5 mg PO DAILY Tobacco use date assessed: 05/15/25 Dental Screening Dental Screen Date: 02/20/25 HPI HPI Comments History of Present Illness Details 59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 - Sleep study results as below. Cont to show mild RADHA. - 09/2024 Mild RADHA she has trialed wt loss and position changes w/o improvement in sleep quality or fatigue - she has TMJ which limits orthotics Review of Systems - Sleep: Reports fatigue, - Respiratory: Denies additional symptoms beyond those related to sleep apnea. - ENT: History of temporomandibular joint disorder reported. Assessment and Plan 1. Mild Obstructive Sleep Apnea - Plan CPAP trial; confirm DME supplier with insurance. - Monitor usage compliance. Patient made aware for continued coverage of CPAP therapy, documentation of compliance, including a [id number] re-evaluation by the treating physician and objective evidence of adherence (4 hours per night for 70% of nights in a 30-day period), is?required between the and 90th day of therapy.? The patient is in agreement to start CPAP therapy. My office will coordinate a f/u in about 60 days. 2. History of Temporomandibular Joint Disorder - Previous TMJ prevents oral appliance use. - Monitor symptoms, oral appliances not advised. Telehealth Attestation The visit conducted via telehealth with discussion and verification of sleep study results and planning for CPAP intervention. The patient has been explained that this is an interactive (audio/video) telehealth encounter and what that consists of. The patient understands and wishes to proceed. [employer] platform was used. Total time spent caring for the patient today was 21 minutes. This includes time spent before the visit reviewing the chart, time spent during the visit, and time spent after the visit on documentation, reviewing laboratory results, diagnostic imaging, medications, performing a medically necessary evaluation, counseling on diagnoses, care coordination, ordering appropriate tests, ordering appropriate medications, review of tests performed by other providers, reporting test results with the patient, communication with other healthcare providers. 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 Myalgia COVID-19 virus infection Nephrolithiasis Mixed hyperlipidemia Psoriasis of scalp Surgical History History of colonoscopy (~2018) Hx laparoscopic cholecystectomy Family History Father Brain hemangioma Mother Hereditary breast and ovarian cancer syndrome associated with mutation in BRCA2 gene AAA (abdominal aortic aneurysm) Maternal Grandmother Breast cancer Paternal Grandfather Throat cancer Paternal Grandmother CVA (cerebral vascular accident) Brother Multiple sclerosis HTN (hypertension) Social History Housing: House Alcohol intake: current Alcohol intake frequency: a few times a month Patient Tobacco Use Status: Never used Tobacco e-Cigarette/Vaping Use: Never Used Second Hand Smoke Exposure: No service: No Current occupational status: employed 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 How often do you have a drink containing alcohol?: 2-3 times a week 2. How many drinks containing alcohol do you have on a typical day when you are drinking?: 3 or 4 3. How often do you have six or more drinks on one occasion?: Never Total Score: 4 HEBERT-7 AMB Questionnaire HEBERT-7 Date HEBERT - 7 assessed: 02/20/25 Source: Developed by Drs. Pedro Resendez, Celina Quijano, Francisco Root and colleagues, with an educational batool from [employer]. Physical exam (Primary Care) Tobacco/Smoking Status: Tobacco use Status Tobacco use date assessed 05/15/25 05/15/25 15:26 Patient Tobacco Use Status Never used Tobacco 05/15/25 15:22 e-Cigarette/Vaping Use Never Used 05/15/25 15:22 Thrive Assessment: Date of Thrive Assessment Date Thrive assessed 02/20/25 05/15/25 15:22 Telehealth Telehealth Telehealth Platform: [facility] Location of provider rendering services: practice address Location of patient: address on file Patient Identification confirmed using: Name, : Yes Telehealth method: voice only Patient verbally consented to treatment: Yes Patient verbally consented to billing insurance company: Yes Patient informed of any privacy concerns related to visit: Yes Minutes spent on Phone/Video with Pt.: 8 Results Reviewed Results Reviewed: Coding Level of Care Code Tele Est Pt Level 3 (73414) Complex EM visit Add On G2211 Diagnoses RADHA (obstructive sleep apnea) G47.33 Assessment & Plan Assessment & Plan (1) RADHA (obstructive sleep apnea): Comment: 05/2025 Sleep study mild RADHA Trial CPAP DME Co Compliance due Code(s): G47.33 - Obstructive sleep apnea (adult) (pediatric) Category: Medical Plan . Medications: Changed From ibuprofen 800 mg PO TID 30 tabs 2RF To ibuprofen 800 mg PO TID PRN
--- OUTSIDE RECORDS SUMMARY | 2025-05-15 15:30 | XMS_ITS | Patient Health Record ---
Author Organization [facility] Address [address] [place] [address] Care Team Providers Care Wheel Tuner Name Role Phone Cheri Crespo Primary Care Provider Pedro Garcia Unavailable [phone] Allergies Allergen (clinical drug ingredient) Drug/Non Drug Allergy documented on EMR Reaction Allergy Type Onset Date Status Sulfa Unknown Drug Allergy Active Penicillin Unknown Drug Allergy Active kiwi , scallops (uncoded) Unknown Allergy Active Reason For Referral No Information Medications Medication SIG (Take, Route, Fr equency, Duration) Notes Start Date End Date Status Omeprazole 20 MG TAKE 1 CAPSULE BY [facility] EVERY DAY for 30 Active Motrin IB [...] Problem Status W/U Status Risk Notes Problem [id number] Encounter for screening for malignant neoplasm of colon (Z12.11) Active confirmed Problem 202719087 Nausea (R11.0) Active confirmed Problem 462568727 Gastroesophageal reflux disease with esophagitis (K21.0) Active confirmed Problem 14762537 Hiatal hernia (K44.9) Active confirmed Plan Of Treatment Future Test Test Name Order Date UPPER GI ENDOSCOPY 05/17/2018 COLONOSCOPY 05/17/2018 Insurance Providers Payer Name Payer Address Payer Phone Subscriber Number Group Number Insured Name Patient Relationship to Insured Coverage Start Date Coverage End Date UMR [address] [address] [place] [address] [phone] [id number] SIENA SANTILLAN Self - patient is the insured Medical (General) History Medical History History ICD Code Denies [place],DM,CVA,Lung disease,renal dise ase EGD-07/2018 small to moderate -sized hiatal hernia and mild reflux esophagitis, gastric biopsies were negative for H. pylori, and esophageal biopsies were negative for Elias's esophagus Negative screening colonoscopy in 2017 Surgical History Surgery Date(Month/Year) Cholecystectomy 2007 breast biopsy--benign 1999
--- OUTSIDE RECORDS SUMMARY | 2025-05-15 15:30 | XMS_ITS | Patient Health Record ---
[facility] Address [address] [place] [address] Care Team Providers Care Anesthesiology Medical Doctor Name Role Phone Breana MCCOY, Cira Bonner Primary Care Provider Un available Cale Figueroa Unavailable [phone] Allergies Allergen (clinical drug ingredient) Drug/Non Drug Allergy documented on EMR Reaction Allergy Type Onset Date Status sulfamethoxazole / trimethoprim Bactrim Rash Drug Allergy Active sulfa Rash Drug Allergy Active Penicillin Rash Drug Allergy Active Reason For Referral No Information Medications Medication SIG (Take, Route, Frequency, Duration) Notes Start Date End Date Status Doxycycline Hyclate 100 MG TK 1 C PO Q 12 H FOR 10 DAYS Oral; Duration: 10 Not-Taki ng Albuterol Sulfate HFA 108 (90 Base) MCG/ACT INL 1 PUFF PO Q 4 H PRN Inhalation; Duration: 33 Not-Taking Physical Therapy . . . 2-3x/week; Duration: 3-4 weeks 01/24/2017 Not-Taking predniSONE 20 MG TAKE 2 TABLETS PO DA LISA FOR 5 DAYS Oral; Duration: 5 Not-Taking DULoxetine HCl 20 MG TK 1 C PO QD Oral; Duration: 30 Active Azithromycin 500 MG TK 1 T PO D FOR 3 DA YS Oral; Duration: 3 Not-Taking Ondansetron HCl 8 MG TK 1/2 TO 1 T PO QD PRF NAUSEA Oral; Duration: 9 Not-Taking Work Note . . . Cont Complete Medical disability from work until 05/22/20. Return to work 05/22/20 without restriction; Duration: 4 days Active Ibuprofen 800 MG TK 1 T PO TID PRF PA IN OR FEVER Oral; Duration: 30 Active Omeprazole 20 MG TK 1 C PO QD Oral; Duration: 30 Active Work Note . . . Medical from wor k from 04/09/20-and including 04/20/20; Duration: 12 days 04/10/2020 Active Social History Tobacco Use: Social History Observation Description Date Details (start date - stop date) Never Smoker NA - NA Tobacco Use/Smoking Question Answer Notes Are you a: nonsmoker Additional Findings: Tobacco Non-User Current no n-smoker Alcohol Screen Question Answer Notes Did you have a drink containing alcohol in the p ast year? Yes Points 0 Interpretation Negative Tobacco use other than smoking: Question Answer Notes Are you an other tobacco user? No Problems Problem Type SNOMED Code ICD Code Onset Dates Problem Status W/U Status Risk Notes Problem Plantar fascial fibromatosis (57620848) Plantar fascial fibromatosis (M72.2) Active confirmed Plan Of Treatment Pending Test Test Name Order Date ,[id number] TENDON SHEATH/LIGAMENT 0 12/30/2016,[id number] TENDON SHEATH/LIGAMENT 0 04/23/2020 Insurance Providers Payer Name Payer Address Payer Phone Subscriber Number Group Number Insured Name Patient Relationship to Insured Coverage Start Date Coverage End Date Blue Benefits [address] [address] [place] [address] [phone] [id number] [employer] Self - patient is the insured Medical (General) History Medical History History ICD Code Arthritis Back,Hip,and Knee pain Headaches Reflux ( GERD) - Hiatal hernia Chicken pox Surgical History Surgery Date(Month/Year) Gall Bladder Removed [phone]
--- OUTSIDE RECORDS SUMMARY | 2025-05-15 15:30 | XMS_ITS | Data Portability ---
Author Organization [place] - [facility], Allergy Address [address] [address] Care Team Providers Care Oil Field Caser Name Role Phone BITA KIM Primary Care Provider Assessment Encounter Date Assessment Date Assessment LastModified by Organization Details LastModified Time 04/07/2025 04/07/2025 The patient's history, physical exam and audiometric findings are consistent with vestibular migraine (migraine associated dizziness). Today we discussed the pathophysiology of migraine and migraine associated phenomena such as dizziness and visual aura. We discussed how the patient's balance disturbance symptoms are likely mediated by a central processing abnormality rather than an isolated inner ear abnormality. I gave the patient a significant amount of literature to review at home regarding how there are many environmental and dietary triggers that can lead to not only migraine headaches but balance disturbance symptoms as well. We spent a lot of time discussing the importance of following a migraine diet. We have offered the patient a copy of the Heal Your Headache book to read at home, which gives a vmzp-ru-svfj discussion on what causes migraine and how to make the necessary lifestyle and dietary changes to significantly reduce or eliminate migraine symptoms. I have also recommended the use of dietary supplements magnesium, vitamin B2 and feverfew which have been shown to help control migrainous phenomena. We discussed dosage and schedule for these supplements. We discussed alternative of using Migranol, which contains a combination of magnesium, vitamin B2, and feverfew. Follow up: As needed dplosky Not available 04/07/2025 13:39:48 Plan of Treatment Reminders Order Date Submit Date Provider Last Modified By Organization Details Last Modified Time Details Appointments None record ed. Lab None record ed. Referral None record ed. Procedures None record ed. Surgeries None record ed. Imaging None record ed. Medication Orders None record ed. Patient TargetsNo targets recorded. Patient InstructionsNo instructions recorded. Reason for Referral None Reported. Problems Name Problem SNOMED Code Status Onset Date Resolution Date Notes Provider Name and Address Organization Details Recorded Time Tension-t ype headache 630002374 Active 2019 Tension-ty pe headache, unspecifie d, not intractabl e; Note: Date Diagnosed: 09/16/2020 9:49 AM (G44.209) Not Available [facility] 4 03:24:16 Abnormal auditory perceptio n 31464842 Active 2021 Other abnormal auditory perception s, bilateral; Note: Date Diagnosed: 08/08/2022 4:33 PM (H93.293) Not Available [facility] 4 03:24:16 Chronic pansinusi tis 14535980 Active 2019 Chronic pansinusit is; Note: Date Diagnosed: 08/14/2020 3:11 PM (J32.4) Not Available [facility] 4 03:24:16 Dizziness and giddiness 706810291 Active 2015 Dizziness and giddiness; Note: Date Diagnosed: 07/06/2016 10:32 AM (R42) Not Available [facility] 4 03:24:16 Problem Notes None recorded. Medical Equipment None Reported. Allergies Allergen ID Allergen Name Allergen Category Reaction Reaction Severity Criticality Documentation Date Start Date Code Code System Note Provider Name and Address Organization Details Recorded Time 750382 penicilli n V potassium medicatio n other Not available Not available 03/19/202440490 5 RxNorm React ion: unkno wn, unspe cifie d;; Not Available [facility] 4 01:23:06 470976 Substance with sulfonami de structure and antibacte rial mechanism of action (substanc e) medicatio n other Not available Not available 03/19/2024 93049 8003 SNOMED React ion: unkno wn, unspe cifie d;; Not Available [facility] 4 01:23:07 Medications Name Sig Start Date Stop Date Status Note LastModified by Organization Details LastModified Time cetirizin e 10 mg tablet 04/07 completed Medicati on ID: [id number] B rand Name: nitin lewis Send Method: E-Prescr ibed Sub s Allowed: subs OK Medic ationGen ericName : nitin ne Not Available Not Available Not Available azithromy andrew 250 mg tablet TK 2 TS PO ON DAY 1, THEN TK 1 T PO D FOR 4 DAYS 04/07 completed Not Available Not Available Not Available ibuprofen 800 mg tablet TAKE 1 TABLET BY MOUTH THREE TIMES DAILY active Not Available Not Available No t Available prednisol one acetate 1 % eye drops,nam pension SHAKE LIQUID AND INSTILL 1 DROP IN BOTH EYES THREE TIMES DAILY FOR 7 DAYS 04/07 completed Not Available Not Available Not Available cefaclor ER 500 mg tablet,ex tended release,1 2 hr TAKE 1 TABLET BY MOUTH EVERY 12 HOURS active Not Available Not Available No t Available omeprazol e 20 mg capsule,d elayed release TAKE 1 CAPSULE BY MOUTH DAILY active Not Available Not Available No t Available lisinopri l 5 mg tablet TAKE 1 TABLET BY MOUTH DAILY active Not Available Not Available No t Available estradiol 0.01% (0.1 mg/gram) vaginal cream INSERT 1 GRAM VAGINALL Y 2 TIMES A WEEK active Not Available Not Available No t Available duloxetin e 20 mg capsule,d elayed release TAKE 2 CAPSULES BY MOUTH DAILY active Not Available Not Available No t Available Vitals Date Recorded Body height Body mass index (BMI) Body weight Provider Name and Address Organization Details Last Updated DateTime 04/07/2025 165.1 cm 31.1 kg/m2 70747.77 g [facility] 04/07/2025 13:22:11 Social History None recorded. Functional Status None recorded. Mental Status None recorded. Family History Nothing Reported. Medical History No medical history recorded. Gynecological HistoryNo gynecological history recorded. Obstetrics History GPAL:G 0 P 0 0 0 0 Past Encounters Encounter ID Performer Location Encounter Start Date Encounter Closed Date Diagnosis/Indication Diagnosis SNOMED-CT Code Diagnosis ICD10 Code Diagnosis Note [id number] JT FLORES MD [facility] [address] [address] 04/07/2025 13:17:11 04/07/2025 13:39:47 Tension-type headache 067744024 G44.209 Health Concerns Section Related Observation LastModified by Organization Detai ls LastModified Time None Recorded Concern Status LastModified by Organization Details LastModified Time None Recorded Advance Directives Directive None Recorded Payers Insurance Date Sequence Insurance Name Policy Number Policy Wilson Covered Member ID Wilson Member ID Guarantor Name 04/08/2025 1 [facility] [place] [id number] Pham Vu [id number] Pham Cabrera Renzulli 04/08/2025 1 [facility] [id number] Pham Cabrera Renzulli [id number] Pham Dashlli Notes Date Note Type Note Provider Name and Address Organization Details Recorded Time 04/07/2025 text/html sinusfeels like ears are underwaterfeels imbalance with sensation of sand movement sound both earsPND at night with facial pressurewas given abx with PCP with no reliefgetting [facility] [id number] 7-8 hours per nightHome PSG - 'marginal', another Home PSG scheduled later this month 09/10/2020 [facility], mild sinus mucosa thickening PV 08/08/22 [place] fullness of ears, nasal drip, normal exam. 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
--- OUTSIDE RECORDS SUMMARY | 2025-05-15 15:30 | XMS_ITS | Clinical Summary ---
Author Organization [facility] Address [address] [place] [address] Care Team Providers Care Traveling Accountant Name Role Phone Cira Toussaint MD Primary [...] 72 10/17/2023 2:41 PM EST Temperature 35.8 C (96.4 F) 11/02/2022 2:58 PM EST Respiratory Rate 18 10/17/2023 2:41 PM EST [...] Drivers of Health Teresa ual Screening 11/06/2024 Influenza Vaccine (#1) 2025 , 07/31/2023, 08/28/2022, Additional history exists DTaP,Tdap,and Td Vaccines (2 - Td or Tdap) 10/17/2029 10/17/2019 RSV Vaccine (60+ years old a nd patients) (1 - 1-dose 75+ series) 2042 Zoster Vaccines Completed 09/09/2024, 06/04/2024 Insurance [facility] HMO/POS Care Teams Traveling Accountant Relationship Specialty Start Date End Date Cira Toussaint MD [address] [place] [address] PCP - General Internal Medicine 04/23/20
== END 2025-05-15 16:21 | disposition home or self-care (01) ==
LOC: HO.HMCFM 15:27
PROVIDERS: PCP Nurse Practitioner Family; Visit Provider Nurse Practitioner Family
DX: G47.33 Obstructive sleep apnea (adult) (pediatric) (principal)

== ENCOUNTER → 2025-05-15 15:27 | Outpatient (BNVA) | payer BC, SELFPAY | PROVIDERS: PCP Nurse Practitioner Family; Visit Provider Nurse Practitioner Family | DX: G47.33 Obstructive sleep apnea (adult) (pediatric) (principal); E78.5 Hyperlipidemia, unspecified; I10 Essential (primary) hypertension; E66.9 Obesity, unspecified; G43.909 Migraine, unspecified, not intractable, without status migrainosus; M79.7 Fibromyalgia | CPT/HCPCS: 98968 ==

== ENCOUNTER → 2025-05-23 13:00 | Outpatient (BNV) | payer BC, SELFPAY | PROVIDERS: PCP Nurse Practitioner Family; Visit Provider Internal Medicine | DX: Z12.31 Encounter for screening mammogram for malignant neoplasm of breast (principal) | CPT/HCPCS: 77063; 77067 ==

== ENCOUNTER 2025-05-23 13:01 | Outpatient (REF) | payer BC, SELFPAY ==
--- OUTSIDE RECORDS SUMMARY | 2025-05-23 13:03 | XMS_ITS | Patient Health Record ---
Author Organization [facility] Address [address] [place] [address] Care Team Providers Care Digital Computer Operator Name Role Phone Cheri Crespo Primary Care Provider Pedro Garcia Unavailable [phone] Allergies Allergen (clinical drug ingredient) Drug/Non Drug Allergy documented on EMR Reaction Allergy Type Onset Date Status Sulfa Unknown Drug Allergy Active Penicillin Unknown Drug Allergy Active kiwi , scallops (uncoded) Unknown Allergy Active Reason For Referral No Information Medications Medication SIG (Take, Route, Fr equency, Duration) Notes Start Date End Date Status Omeprazole 20 MG TAKE 1 CAPSULE BY [facility] EVERY DAY for 30 Active Motrin [...] Problem Status W/U Status Risk Notes Problem 481017477 Encounter for screening for malignant neoplasm of colon (Z12.11) Active confirmed Problem 112139072 Nausea (R11.0) Active confirmed Problem 848276032 Gastroesophageal reflux disease with esophagitis (K21.0) Active confirmed Problem 57048826 Hiatal hernia (K44.9) Active confirmed Plan Of Treatment Future Test Test Name Order Date UPPER GI ENDOSCOPY 05/17/2018 COLONOSCOPY 05/17/2018 Insurance Providers Payer Name Payer Address Payer Phone Subscriber Number Group Number Insured Name Patient Relationship to Insured Coverage Start Date Coverage End Date U[employer] [address] [address] [place] [address] [id number] SIENA SANTILLAN Self - patient is the insured Medical (General) History Medical History History ICD Code Denies [place],DM,CVA,Lung disease,renal dise ase EGD-07/2018 small to moderate -sized hiatal hernia and mild reflux esophagitis, gastric biopsies were negative for H. pylori, and esophageal biopsies were negative for Elias's esophagus Negative screening colonoscopy in 2017 Surgical History Surgery Date(Month/Year) Cholecystectomy 2007 breast biopsy--benign 1999
--- OUTSIDE RECORDS SUMMARY | 2025-05-23 13:03 | XMS_ITS | Clinical Summary ---
Author Organization [facility] Address [address] [place] [address] Care Team Providers Care Cook 3 Pastry Name Role Phone Cira Toussaint MD Primary [...] 2042 Zoster Vaccines Completed 09/09/2024, 06/04/2024 Insurance [facility] HMO/POS Care Teams Cook 3 Pastry Relationship Specialty Start Date End Date Cira Toussaint MD [address] [place] [address] PCP - General Internal Medicine 04/23/20
--- OUTSIDE RECORDS SUMMARY | 2025-05-23 13:03 | XMS_ITS | Clinical Summary ---
Author Organization [facility] Address [address] [place] [address] Phone Care Team Providers Care Wireless Team Member Name Role Phone Cira Toussaint MD Primary Care Provider Unavailable Immunizations Immunization Administration Dates Next Due Hepatitis B Adult 12/31/2020,08/06/1992,08/06/19 92 Influenza, Unspecified Formulation 08/04/2021,,07/29/2020 MMR 05/06/1998, 8,06/06/1978,06/06/19 78 Tdap 10/17/2019,10/17/2019 Social History Tobacco Use Types Packs/Day Years Used Date Smoking Tobacco: Never Assessed Education Answer Date Recorded Are you interested in more education? Not on tish e 03/03/2023 Are you concerned about learning? Not on file 03/03/2023 No 03/03/2023 No 03/03/2023 Digital Access Answer Date Recorded No 04/01/2023 No 04/01/2023 No 04/01/2023 Reliable internet access at home? Not on file 04/01/2023 Device with a working camera? Not on file Comments Unknown Sex and Gender Information Value Date Recorded Sex Assigned at Not on file Legal Sex Female 11:03 AM EST Gender Identity Not on file Sexual Orientation Not on file Plan of Treatment Health Maintenance Due Date Last Done Comments LIPID PANEL 1967 DEPRESSION SCREENING 1979 SMOKING Hx and SMOKELESS TOBACCO SCREENING 1980 HEPATITIS C SCREENING 1985 HIV ONE-TIME SCREENING (18-6 5 YEARS) 1985 PAP SMEAR 1988 MAMMOGRAM 2007 COLOGUARD 2012 COLONOSCOPY 2012 COLORECTAL CANCER SCREENING 2012 FIT TEST 2012 FOBT 2012 SIGMOIDOSCOPY 2012 VIRTUAL COLONOSCOPY 2012 PNEUMOCOCCAL VACCINES (50+ years) (1 of 1 - PCV) 2017 ZOSTER VACCINES (1 of 2) 2017 COVID-19 VACCINE (3 - 2023-2 5 season) 2024 12/16/2020, 11/18/2020 Adult Td,Tdap Booster 10/17/2029 10/17/2019 , 10/17/2019 HEPATITIS A VACCINES Aged Out No long er eligible based on patient's age to complete this topic HIB VACCINES Aged Out No longer eligi ble based on patient's age to complete this topic MENINGOCOCCAL VACCINES (ACWY) Aged Out No longer eligible based on patient's age to complete this topic MENINGOCOCCAL VACCINES (B) Aged Out N o longer eligible based on patient's age to complete this topic Medical Devices Not on file Insurance [facility] [id number] [place] [address] [facility] Care Teams Wireless Team Member Relationship Specialty Start Date End Date Cira Toussaint MD PCP - General Internal Medicine 02/09/21 Additional Source Comments The information contained in this document represents components of the legal health record. It is not the complete legal health record.[facility]
--- OUTSIDE RECORDS SUMMARY | 2025-05-23 13:03 | XMS_ITS | Patient Health Record ---
Author Organization [facility] Address [address] [place] [address] Care Team Providers Care Steam Station Supervisor Name Role Phone Breana MCCOY, Cira Bonner Primary Care Provider Un available Cale Figueroa Unavailable [phone] Allergies Allergen (clinical drug ingredient) Drug/Non Drug [...] Status Risk Notes Problem Plantar fascial fibromatosis (94134343) Plantar fascial fibromatosis (M72.2) Active confirmed Plan Of Treatment Pending Test Test Name Order Date ,[id number] TENDON SHEATH/LIGAMENT 0 12/30/2016,K0638-RUL TENDON SHEATH/LIGAMENT 0 04/23/2020 Insurance Providers Payer Name Payer Address Payer Phone Subscriber Number Group Number Insured Name Patient Relationship to Insured Coverage Start Date Coverage End Date Blue Benefits [address] [address] [place] [address] [phone] [id number] Pham Vu Self - patient is the insured Medical (General) History Medical History History ICD Code Arthritis Back,Hip,and Knee pain Headaches Reflux ( GERD) - Hiatal hernia Chicken pox Surgical History Surgery Date(Month/Year) Gall Bladder Removed [phone]
--- OUTSIDE RECORDS SUMMARY | 2025-05-23 13:03 | XMS_ITS | Data Portability ---
Author Organization [place] - [facility], Allergy Address [address] [address] Care Team Providers Care Disability Advocate Name Role Phone BITA KIM Primary Care Provider [phone] Assessment Encounter Date Assessment Date Assessment LastModified [...] to read at home, which gives a ocei-rq-[id number] discussion on what causes migraine and how [...] Name and Address Organization Details Recorded Time Dizziness and giddiness 247092044 Active 2015 Dizziness and giddiness; Note: Date Diagnosed: 07/06/2016 10:32 AM (R42) Not Available [facility] 4 03:24:16 Chronic pansinusi tis 27630902 Active 2019 Chronic pansinusit is; Note: Date Diagnosed: 08/14/2020 3:11 PM (J32.4) Not Available [facility] 4 03:24:16 Tension-t ype headache 411895461 Active 2019 Tension-ty pe headache, unspecifie d, not intractabl e; Note: Date Diagnosed: 09/16/2020 9:49 AM (G44.209) Not Available [facility] 4 03:24:16 Abnormal auditory perceptio n 16253667 Active 2021 Other abnormal auditory perception s, bilateral; Note: Date Diagnosed: 08/08/2022 4:33 PM (H93.293) Not Available [facility] 4 03:24:16 Problem Notes None recorded. Medical Equipment None Reported. Allergies Allergen ID Allergen Name Allergen Category Reaction Reaction Severity Criticality Documentation Date Start Date Code Code System Note Provider Name and Address Organization Details Recorded Time 719428 penicilli n V potassium medicatio n other Not available Not available 03/19/202404384 5 RxNorm React ion: unkno wn, unspe cifie d;; Not Available [facility] 4 01:23:06 198182 Substance with sulfonami de structure and antibacte rial mechanism of action (substanc e) medicatio n other Not available Not available 03/19/2024 95641 8003 SNOMED React ion: unkno wn, unspe cifie d;; Not Available [facility] 4 01:23:07 Medications Name Sig Start Date Stop Date Status Note LastModified by Organization Details LastModified Time cetirizin e 10 mg tablet 04/07 completed Medicati on ID: [id number] B rand Name: nitin lewis Send Method: [...] Updated DateTime 04/07/2025 165.1 cm 31.1 kg/m2 24709.77 [facility] 04/07/2025 13:22:11 Social History None recorded. Functional Status None recorded. Mental Status None recorded. Family History Nothing Reported. Medical History No medical history recorded. Gynecological HistoryNo gynecological history recorded. Obstetrics History GPAL:G 0 P 0 0 0 0 Past Encounters Encounter ID Performer Location Encounter Start Date Encounter Closed Date Diagnosis/Indication Diagnosis SNOMED-CT Code Diagnosis ICD10 Code Diagnosis Note [id number] JT FLORES MD [facility] [address] [address] 04/07/2025 13:17:11 04/07/2025 13:39:47 Tension-type headache 399150654 G44.209 Health Concerns Section Related Observation LastModified by Organization Detai ls LastModified Time None Recorded Concern Status LastModified by Organization Details LastModified Time None Recorded Advance Directives Directive None Recorded Payers Insurance Date Sequence Insurance Name Policy Number Policy Wislon Covered Member ID Wilson Member ID Guarantor Name 04/08/2025 1 [facility] [place] [place] [id number] Pham Vu [id number] Pham Cabrera Renzulli 04/08/2025 1 [facility] [id number] Pham Cabrera Renzulli [id number] Pham Dashlli Notes Date Note Type Note Provider Name and Address Organization Details Recorded Time 04/07/2025 text/html sinusfeels like ears are underwaterfeels imbalance with sensation of sand movement sound both earsPND at night with facial pressurewas given abx with PCP with no reliefgetting [facility] [id number] 7-8 hours per nightHome PSG - 'marginal', another Home PSG scheduled later this month 09/10/2020 [facility], mild sinus mucosa thickening PV 08/08/22 [place] fullness of ears, nasal drip, normal exam. 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
== END 2025-05-23 13:02 | disposition home or self-care (01) ==
LOC: HO.MAMMO 13:01
PROVIDERS: PCP Nurse Practitioner Family; Visit Provider Nurse Practitioner Family
DX: Z12.31 Encounter for screening mammogram for malignant neoplasm of breast (principal)
CPT/HCPCS: 77063; 77067

== ENCOUNTER 2025-07-28 14:10 | Outpatient (REF) | payer BC, SELFPAY | END 2025-07-28 14:11 | disposition home or self-care (01) | LOC: HO.XRAY 14:10 | PROVIDERS: PCP Nurse Practitioner Family; Visit Provider Nurse Practitioner Family | DX: M25.551 Pain in right hip (principal); M79.651 Pain in right thigh; I10 Essential (primary) hypertension; Z79.899 Other long term (current) drug therapy | CPT/HCPCS: 73502; 73552 ==

== ENCOUNTER 2025-07-28 14:10 | Outpatient (AMB) | payer BC, SELFPAY ==
--- NOTE | 2025-07-28 13:59 | MHC.PC.OV ---
Intake Visit Reasons: Pain right upper side Intake Note: Telehealth patient c/o px on right side of the leg and worse when going upstairs. Spooler Rubber Strand Required: No Allergies kiwi (KIWI) Allergy (Unknown, Verified 07/28/25 14:46) SHORTNESS OF BREATH Penicillins (PENICILLINS) Allergy (Unknown, Verified 07/28/25 14:46) RASH scallops (SCALLOPS) Allergy (Unknown, Verified 07/28/25 14:46) SHORTNESS OF BREATH Sulfa (Sulfonamide Antibiotics) (Sulfa(Sulfonamide Antibiotics)) Allergy (Unknown, Verified 07/28/25 14:46) UNKNOWN, rash, rash Medication List - Last Reviewed 07/28/25 by Elvis Chicas [place] duloxetine 40 mg (2 x 20 mg) PO DAILY 3 months estradiol 0.01%(0.1mg/gram) 1 g vaginal 2XW ibuprofen 800 mg PO TID PRN lansoprazole 15 mg PO DAILY lisinopril 5 mg PO DAILY Tobacco use date assessed: 07/28/25 Dental Screening Dental Screen Date: 07/28/25 Did you have a dental visit in the last 12 months?: Yes Did you have a dental problem in the last 6 months where you did not have access to dental care?: No Was dental information given to patient?: Patient has dentist HPI HPI Comments History of Present Illness Details 60-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, 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 hyperlipidemia, hypertension, Dimitry's thyroid disease, obesity, atrophic vaginitis, migraines, psoriasis, rosacea, syrinx of spinal cord, meningioma, congenital absence of thyroid gland, 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 with benign findings, nephrolithiasis, MDD, menopausal, fibromyalgia, hiatal hernia, gastritis, Hepatic Steotosis Surgeries Status post cholecystectomy Telehealth visit today for R leg pain Over summer went on a hike x 3 next day, had excrutiaing pain in R upper leg muscle when walking up and down stairs 6 weeks later, still hurts a lot son in law works for [employer] - doesnt sounds like ortho has problems w/ other knee taking meloxicam this helps when doesnt take the pain returnns Does not look or feel different it does not hurt at rest stairs make it worse aches into knee and for the first time today, into the ankle. denies fever, chills, weakness. Normal pulses. does not hurt to the touch. has pain in R hip when sleeping on this side Plan: DDx includes bursitis or nerve entrapment Xray of R hip, pelvis and femur CC [facility] [place] Cont NSAIDs I will fu once results are back. RTO as scheduled, sooner PRN Telehealth Attestation The visit conducted via telehealth with discussion and verification of sleep study results and planning for CPAP intervention. The patient has been explained that this is an interactive (audio/video) telehealth encounter and what that consists of. The patient understands and wishes to proceed. ANTERIOS platform was used. Total time spent caring for the patient today was 21 minutes. This includes time spent before the visit reviewing the chart, time spent during the visit, and time spent after the visit on documentation, reviewing laboratory results, diagnostic imaging, medications, performing a medically necessary evaluation, counseling on diagnoses, care coordination, ordering appropriate tests, ordering appropriate medications, review of tests performed by other providers, reporting test results with the patient, communication with other healthcare providers. 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 Myalgia COVID-19 virus infection Nephrolithiasis Mixed hyperlipidemia Psoriasis of scalp Surgical History History of colonoscopy (~2018) Hx laparoscopic cholecystectomy Family History Father Brain hemangioma Mother Hereditary breast and ovarian cancer syndrome associated with mutation in BRCA2 gene AAA (abdominal aortic aneurysm) Maternal Grandmother Breast cancer Paternal Grandfather Throat cancer Paternal Grandmother CVA (cerebral vascular accident) Brother Multiple sclerosis HTN (hypertension) Social History Housing: House Alcohol intake: current Alcohol intake frequency: a few times a month Patient Tobacco Use Status: Never used Tobacco e-Cigarette/Vaping Use: Never Used Second Hand Smoke Exposure: No service: No Current occupational status: employed 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 Pedro Resendez, Celina Quijano, Francisco Root and colleagues, with an educational batool from [employer]. Physical exam (Primary Care) Tobacco/Smoking Status: Tobacco use Status Tobacco use date assessed 07/28/25 07/28/25 14:15 Patient Tobacco Use Status Never used Tobacco 07/28/25 13:59 e-Cigarette/Vaping Use Never Used 07/28/25 13:59 Thrive Assessment: Date of Thrive Assessment Date Thrive assessed 02/20/25 07/28/25 13:59 Telehealth Telehealth Telehealth Platform: [facility] Location of provider rendering services: practice address Location of patient: address on file Patient Identification confirmed using: Name, : Yes Telehealth method: voice only Patient verbally consented to treatment: Yes Patient verbally consented to billing insurance company: Yes Patient informed of any privacy concerns related to visit: Yes Minutes spent on Phone/Video with Pt.: 10 Coding Level of Care Code Tele Est Pt Level 3 (47894) Complex EM visit Add On G2211 Diagnoses Right hip pain M25.551 Right thigh pain M79.651 Assessment & Plan Assessment & Plan (1) Right hip pain: Code(s): M25.551 - Pain in right hip Category: Medical (2) Right thigh pain: Code(s): M79.651 - Pain in right thigh Category: Medical Plan . Orders: Orders XR hip RT w PEL1V Today M25.551 - Pain in right hip, M79.651 - Pain in right thigh XR femur RT 2V Today M25.551 - Pain in right hip, M79.651 - Pain in right thigh
--- OUTSIDE RECORDS SUMMARY | 2025-07-28 16:46 | XMS_ITS | Clinical Summary ---
Author Organization [facility] Address [address] [id number] Care Team Providers
== END 2025-07-28 14:58 | disposition home or self-care (01) ==
LOC: HO.HMCFM 14:10
PROVIDERS: PCP Nurse Practitioner Family; Visit Provider Nurse Practitioner Family
DX: M25.551 Pain in right hip (principal); M79.651 Pain in right thigh

== ENCOUNTER → 2025-07-28 15:09 | Outpatient (BNV) | payer BC, SELFPAY | PROVIDERS: PCP Nurse Practitioner Family; Visit Provider Radiology Diagnostic Radiology | DX: M25.551 Pain in right hip (principal) | CPT/HCPCS: 73502; 73552 ==

== ENCOUNTER 2025-08-20 06:33 | Outpatient (REF) | payer BC, SELFPAY ==
--- OUTSIDE RECORDS SUMMARY | 2025-08-20 06:35 | XMS_ITS | Data Portability ---
Author Organization [place] - [facility], Allergy Address [address] [address] Care Team Providers Care Station Air Traffic Control Specialist Name Role Phone BITA KIM Primary Care [...] to read at home, which gives a ijex-sr-dwvy discussion on what causes migraine and how [...] Organization Details Recorded Time Dizziness and giddiness 573939440 Active 2015 Dizziness and giddiness; Note: Date Diagnosed: 07/06/2016 10:32 AM (R42) Not Available [facility] 4 03:24:16 Chronic pansinusi tis 67818027 Active 2019 Chronic pansinusit is; Note: Date Diagnosed: 08/14/2020 3:11 PM (J32.4) Not Available [facility] 4 03:24:16 Tension-t ype headache 097628349 Active 2019 Tension-ty pe headache, unspecifie d, not intractabl e; Note: Date Diagnosed: 09/16/2020 9:49 AM (G44.209) Not Available [facility] 4 03:24:16 Abnormal auditory perceptio n 02667979 Active 2021 Other abnormal auditory perception s, bilateral; Note: Date Diagnosed: 08/08/2022 4:33 PM (H93.293) Not Available [facility] 4 03:24:16 Problem Notes None recorded. Medical Equipment None Reported. Allergies Allergen ID Allergen Name Allergen Category Reaction Reaction Severity Criticality Documentation Date Start Date Code Code System Note Provider Name and Address Organization Details Recorded Time 085627 penicilli n V potassium medicatio n other Not available Not available 03/19/202434934 5 RxNorm React ion: unkno wn, unspe cifie d;; Not Available [facility] 4 01:23:06 500865 Substance with sulfonami de structure and antibacte rial mechanism of action (substanc e) medicatio n other Not available Not available 03/19/2024 85073 8003 SNOMED React ion: unkno wn, unspe cifie d;; Not Available [facility] 4 01:23:07 Medications Name Sig Start Date Stop Date Status Note LastModified by Organization Details LastModified Time cetirizin e 10 mg tablet 04/07 completed Medicati on ID: [id number] B rand Name: nitin lewis Send Method: [...] Updated DateTime 04/07/2025 165.1 cm 31.1 kg/m2 93770.77 g [facility] 04/07/2025 13:22:11 Social History None recorded. Functional Status None recorded. Mental Status None recorded. Family History Nothing Reported. Medical History No medical history recorded. Gynecological HistoryNo gynecological history recorded. Obstetrics History GPAL:G 0 P 0 0 0 0 Past Encounters Encounter ID Performer Location Encounter Start Date Encounter Closed Date Diagnosis/Indication Diagnosis SNOMED-CT Code Diagnosis ICD10 Code Diagnosis IMO Codes Diagnosis Note [id number] JT FLORES MD [facility] [address] [address] 04/07/2025 13:17:11 04/07/2025 13:39:47 Tension-type headache 317830161 G44.209 Health Concerns Section Related Observation LastModified by Organization Detai ls LastModified Time None Recorded Concern Status LastModified by Organization Details LastModified Time None Recorded Advance Directives Directive None Recorded Payers Insurance Date Sequence Insurance Name Policy Number Policy Wilson Covered Member ID Wilson Member ID Guarantor Name 04/08/2025 1 [facility] [id number] Pham Vu [id number] Pham Cabrera Renzulli 04/08/[address] [facility] [id number] Pham Cabrera Renzulli [id number] Pham Vu Notes Date Note Type Note Provider Name and Address Organization Details Recorded Time 04/07/2025 text/html ROS as noted in the HPI sinusfeels like ears are underwaterfeels imbalance with sensation of sand movement sound both earsPND at night with facial pressurewas given abx with PCP with [facility] [id number] 7-8 hours per nightHome PSG - 'marginal', another Home PSG scheduled later this month [facility]10[facility]2020 [facility], [facility] mucosa thickening PV 08/08/22 [place] fullness of ears, nasal drip, normal exam. 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
--- OUTSIDE RECORDS SUMMARY | 2025-08-20 06:35 | XMS_ITS | Patient Health Record ---
Author Organization [facility] Address [address] [place] [address] Care Team Providers Care Deputy Head Name Role Phone Cheri Crespo Primary Care Provider Pedro Garcia Unavailable [phone] Allergies Allergen (clinical drug ingredient) Drug/Non Drug Allergy documented on EMR Reaction Allergy Type Onset Date Status Sulfa Unknown Drug Allergy Active Penicillin Unknown Drug Allergy Active kiwi , scallops (uncoded) Unknown Allergy Active Reason For Referral No Information Medications Medication SIG (Take, Route, Fr equency, Duration) Notes Start Date End Date Status Omeprazole 20 MG TAKE 1 CAPSULE BY [facility] EVERY DAY; Duration: 30 Active Motrin IB 200 MG 1 [...] Problem Status W/U Status Risk Notes Problem Screening for malignant neoplasm of colon (189301360) Encounter for screening for malignant neoplasm of colon (Z12.11) Active confirmed Problem Nausea (517990807) Nausea (R11.0) Active confir med Problem Gastroesophageal reflux disease with esophagitis (378697515) Gastroesophageal reflux disease with esophagitis (K21.0) Active confirmed Problem Hiatal hernia (67439615) Hiatal hernia (K44.9) Active confirmed Plan Of Treatment Future Test Test Name Order Date UPPER GI ENDOSCOPY 05/17/2018 COLONOSCOPY 05/17/2018 Insurance Providers Payer Name Payer Address Payer Phone Subscriber Number Group Number Insured Name Patient Relationship to Insured Coverage Start Date Coverage End Date [employer] [address] [address] [place] [address] [phone] [id number] SIENA SANTILLAN Self - patient is the [...]
--- OUTSIDE RECORDS SUMMARY | 2025-08-20 06:36 | XMS_ITS | Patient Health Record ---
Author Organization [facility] Address [address] [place] [address] Care Team Providers Care Joint Cutter Name Role Phone Breana MCCOY, Cira Bonner Primary Care Provider Un available Cale Figueroa Unavailable [phone] Allergies Allergen (clinical drug ingredient) Drug/Non Drug [...] Status Risk Notes Problem Plantar fascial fibromatosis (10486836) Plantar fascial fibromatosis (M72.2) Active confirmed Plan Of Treatment Pending Test Test Name Order Date ,[id number] TENDON SHEATH/LIGAMENT 0 12/30/2016,[id number] TENDON SHEATH/LIGAMENT 0 04/23/2020 Insurance Providers Payer Name Payer Address Payer Phone Subscriber Number Group Number Insured Name Patient Relationship to Insured Coverage Start Date Coverage End Date Blue Benefits [address] [address] [place] [address] [id number] Pham Vu Self - patient is the insured Medical (General) History Medical History History ICD Code Arthritis Back,Hip,and Knee pain Headaches Reflux ( GERD) - Hiatal hernia Chicken pox Surgical History Surgery Date(Month/Year) Gall Bladder Removed [phone]
--- OUTSIDE RECORDS SUMMARY | 2025-08-20 06:36 | XMS_ITS | Clinical Summary ---
Author Organization [facility] Address [address] [place] [address] Care Team Providers Care Leaflet Distributor Name Role Phone Cira Toussaint MD Primary [...] - 19+ 3-dose series) 02/25/2021 12/31/2020, 08/06/1992 Alcohol/Substance Use Screening 11/06/2024 Depression Screening and Follow-Up 11/06/2024 Social Drivers of Health Teresa ual Screening 11/06/2024 COVID-19 Vaccine (2024-2 6 season) 2025 09/06/2021, 12/16/2020, 11/18/2020 Influenza Vaccine (#1) 2025 , 07/31/2023, 08/28/2022, Additional history exists DTaP,Tdap,and Td Vaccines (2 - Td or Tdap) 10/17/2029 10/17/2019 RSV Vaccine (60+ years old a nd patients) (1 - 1-dose 75+ series) 2042 Zoster Vaccines Completed 09/09/2024, 06/04/2024 Insurance [facility] HMO/POS Care Teams Leaflet Distributor Relationship Specialty Start Date End Date Cira Toussaint MD [address] [place] [address] PCP - General Internal Medicine 04/23/20
--- OUTSIDE RECORDS SUMMARY | 2025-08-20 06:36 | XMS_ITS | Clinical Summary ---
Author Organization [facility] Address [address] [place] [phone] Phone Care Team Providers Care Breast Puller Name Role Phone Cira Toussaint MD Primary Care Provider Immunizations Immunization Administration Dates Next Due Hepatitis [...] HEPATITIS C SCREENING 1985 HIV ONE-TIME SCREENING (18-65 YEARS) 1985 PAP SMEAR 1988 MAMMOGRAM 2007 COLOGUARD 2012 COLONOSCOPY 2012 COLORECTAL CANCER SCREENING 2012 FIT TEST 2012 FOBT 2012 SIGMOIDOSCOPY 2012 VIRTUAL COLONOSCOPY 2012 PNEUMOCOCCAL VACCINES (50+ years) (1 of 1 - PCV) 2017 ZOSTER VACCINES (1 of 2) 2017 INFLUENZA VACCINE (#1) 2025 , 07/29/2020, 07/29/2020, Additional history exists COVID-19 VACCINE ( season) 2025 12/16/2020, 11/18/2020 Adult Td,Tdap Booster 10/17/2029 10/17/2019, 019 RSV VACCINE (1 - 1-dose 75+ series) 2042 HEPATITIS A VACCINES Aged Out No long [...] topic Medical Devices Not on file Insurance [facility] PPO [facility] Care Teams Breast Puller Relationship Specialty Start Date End Date Cira Toussaint MD [address] [place] [address] PCP - General Internal Medicine 02/09/21 Additional Source Comments The information contained in this document represents components of the legal health record. It is not the complete legal health record.[facility]
[2025-08-20 08:37] LABS: Alanine Aminotransferase 33 U/L (0-31); Albumin Level 4.3 g/dL (3.5-5.0); Alkaline Phosphatase 81 U/L (39-117); Anion Gap 12 (12-20); Aspartate Amino Transferase 27 U/L (5-31); Blood Urea Nitrogen 17 mg/dL (9-16); Calcium 9.6 mg/dL (8.4-10.2); Carbon Dioxide 25 mmol/L (22-29); Chloride 111 mmol/L (96-108); Cholesterol 205 mg/dL (<200); Estimated Glomerular Filt Rate > 60; HDL Cholesterol 62 mg/dL (>40); Potassium 3.8 mmol/L (3.3-5.1); Sodium 144 mmol/L (135-145); Total Protein 7.2 g/dL (6.5-8.0); Triglycerides 97 mg/dL (<150)
== END 2025-08-20 06:34 | disposition home or self-care (01) ==
LOC: HO.LAB 06:33
PROVIDERS: PCP Nurse Practitioner Family; Visit Provider Nurse Practitioner Family
DX: Z23 Encounter for immunization (principal); M79.651 Pain in right thigh; E78.5 Hyperlipidemia, unspecified; I10 Essential (primary) hypertension; R07.9 Chest pain, unspecified; F33.1 Major depressive disorder, recurrent, moderate; G47.33 Obstructive sleep apnea (adult) (pediatric); K76.0 Fatty (change of) liver, not elsewhere classified; K21.9 Gastro-esophageal reflux disease without esophagitis; E06.3 Autoimmune thyroiditis; M85.80 Other specified disorders of bone density and structure, unspecified site; Z78.0 Asymptomatic menopausal state
CPT/HCPCS: 36415; 80053; 80061; 90471; 90656; 96127

== ENCOUNTER 2025-08-20 14:49 | Outpatient (AMB) | payer BC, SELFPAY ==
--- NOTE | 2025-08-20 14:51 | A.OFFPC_ITS ---
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 Allergies kiwi (KIWI) Allergy (Unknown, Verified 08/20/25 15:04) SHORTNESS OF BREATH Penicillins (PENICILLINS) Allergy (Unknown, Verified 08/20/25 15:04) RASH scallops (SCALLOPS) Allergy (Unknown, Verified 08/20/25 15:04) SHORTNESS OF BREATH Sulfa (Sulfonamide Antibiotics) (Sulfa(Sulfonamide Antibiotics)) Allergy (Unknown, Verified 08/20/25 15:04) UNKNOWN, rash, rash Medication List - Last Reconciled 08/20/25 by Cheri Crespo, EVELYN- duloxetine 40 mg (2 x 20 mg) PO DAILY 3 months estradiol 0.01%(0.1mg/gram) 1 g vaginal 2XW ibuprofen 800 mg PO TID PRN lansoprazole 15 mg PO DAILY lisinopril 5 mg PO DAILY Tobacco use date assessed: 08/20/25 Dental Screening Dental Screen Date: 08/20/25 Did you have a dental visit in the last 12 months?: Yes Did you have a dental problem in the last 6 months where you did not have access to dental care?: No Was dental information given to patient?: Patient has dentist HPI HPI Comments 2 History of Present Illness0 Details 60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 Optho - has q 6 mo visual field testing Neuro and MRI at [facility] annually. Health maintenance Colonoscopy 2017 Dr. Cuello with hyperplastic polyp, repeat 10 years 2027 Mammogram 12/20/23 BI-RADS BI-RADS 1 - Negative, will call to schedule Pap 01/09/23 WNL DEXA 12/29/23 Osteopenia (repeat in 2 years) Tdap and Flu 08/20/25 Liver Elastography: Hepatic Steotosis otherwise WNL History of Present Illness The patient is a 60-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 presenting with routine complex disease management. Essential Hypertension: - Managed with lisinopril. - Previous attempts to discontinue in [place] in. - Current BP managed well. Gastroesophageal Reflux Disease (GERD): - Switched to omeprazole due to insuranc e. - Effectively managed with 3-day dosing. Fibromyalgia/Mood: - Managed with duloxetine; stable condit ion. Obstructive Sleep Apnea: - CPAP issues due to mask fit, constant use reported. - Compliance reviewed today. Doing the b est she can; determined to cont use. - will be getting new head gear to hold nasal pillow in place Chest pain of unknown etiology: - Chronic, intermittent L anterior chest wall pain; lasts minutes; no exertion link. - Comprehensive cardiology evaluation in past Echo, EKG, unable to complete stress test d/t tachycardia. -Pain can radiate into back at times. no other sx. Right Thigh pain following physical exertion: - Post-hiking acute pain, Xrays and orth o consult completed. Xray negative. Ortho thought maybe was tendonitis. She now feels a palpable lump in this area. Review of Systems - Cardiovascular: Reports chest pain, no n-radiating, lasting minutes, no exertion link. - Respiratory: Denies shortness of breat h. - Musculoskeletal: Reports thigh pain on set post-physical exertion, aggravated by fast stair walking. - Gastrointestinal: Reports GERD, manage d with medication. - Neurological: Denies any acute neurolo gical symptoms. - Sleep: Issues with CPAP mask fit, caus ing discomfort, reports compliance. Physical Exam General: Well developed, well nourished, in no acute distress. Appears stated age. Head: Normocephalic, atraumatic. Eyes: Pupils are equal, round and reactive to light and accommodation. Conjunctivae are clear. Lungs: Clear to auscultation bilaterally. No rales, rhonchi or wheeze noted. Good air flow in all vivar. Heart: Regular rate and rhythm. No murmurs, click, rubs or gallops are noted. Abdomen: Bowel sounds present in all quadrants. The abdomen is soft, nontender, with no masses or organomegaly noted. No hernias are noted. Musculoskeletal: Tender over ribs bilat (chronic), no reproducible chest pain today; no costochondral tenderness. Joints are nontender, without swelling, redness, or effusions. Noted pain in the right thigh area, with a small palpable mass that is soft and mobile. Pulses: Peripheral pulses are equal and palpable bilaterally. Extremities: No clubbing, cyanosis nor edema is noted. Psych: Mood and affect appropriate. Results See below - Labs: Electrolytes within normal range , stable kidney function, glucose 90. Calcium 9.6. - Liver Function Tests: AST normal, ALT mild improvement. - Lipids: Cholesterol stable at 205, LDL 124, HDL 62. Discussion Notes During the discussion, I emphasized potential causes for the patient?s chest pain, including reflux or musculoskeletal issues, and the historical cardiac evaluation. I weighed the need for further stress testing with concerns about thigh pain impacting results. We discussed insurance impacts on medication and device coverage, and I proposed a new CPAP mask that may better fit the patient's facial structure. I agreed to initiate an MRI r femur, to further evaluate thigh pain if physical therapy does not suffice. I thoroughly reviewed and documented medication strategies, particularly for her GERD and hypertension. I encouraged continuation with current management for fibromyalgia and supported regular follow-up for menopause treatment. Patient was given time to ask questions. All questions were answered to their satisfaction. Assessment and Plan 1. Essential Hypertension - Continue lisinopril for BP management. 2. Gastroesophageal Reflux Disease (GERD ) - cont omeprazole, maintain symptom cont rol. - insurance not covering, paying OOP w/ coupon 4. Fibromyalgia/Mood - Maintain current dose of duloxetine. 5. Obstructive Sleep Apnea - Explore better fitting CPAP alternativ e. - Cont CPAP - [facility] 6. Chest Pain - Proceed with nuclear stress test as sh e cannot walk on treadmill given thigh pain 7. Thigh Pain - Initiate physical therapy & MRI Patient Instructions - Take prescribed medications as directe d. - Follow exercise and activity guideline s discussed. - Attend set appointments for further di agnostic procedures. - Contact the office if symptoms worsen or new symptoms arise. - Ensure compliance in using CPAP shahrzad e consistently. - RTO 6 mo for CPE sooner as needed Consent I have obtained consent from the patient to proceed with a stress test and potential MRI of the thigh as discussed. I have explained the benefits of these diagnostic procedures to help in understanding the nature of her chest and thigh pain. The patient was informed of possible findings from the tests and agreed to the proposed evaluations and any associated risks. Patient was informed and verbally consented to the use of an ambient scribe for clinic note documentation during this visit. Total time spent caring for the patient today was 40 minutes. This includes time spent before the visit reviewing the chart, time spent during the visit, and time spent after the visit on documentation, reviewing laboratory results, diagnostic imaging, medications, performing a medically necessary evaluation, counseling on diagnoses, care coordination, ordering appropriate tests, ordering appropriate medications, review of tests performed by other providers, reporting test results with the patient, communication with other healthcare providers [facility] Medical History (Updated 08/20/25 @ 17:38 by Cheri Crespo, [facility]) Arthralgia Atrophic vaginitis Chronic pansinusitis 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 COVID-19 virus infection Dyslipidemia Elevated liver enzymes Essential hypertension Flu-like symptoms Gastritis Greater trochanteric bursitis of right hip Dimitry's disease History of postmenopausal bleeding Immunity status testing Meningioma Menopause Migraine Mixed hyperlipidemia Myalgia Nephrolithiasis Obesity Pain, joint, multiple sites Psoriasis of scalp Rosacea Screening-pulmonary TB Sleep apnea Syrinx of spinal cord Thyroid nodule Surgical History History of colonoscopy (~2018) Hx laparoscopic cholecystectomy Family History Father Brain hemangioma Mother Hereditary breast and ovarian cancer syndrome associated with mutation in BRCA2 gene AAA (abdominal aortic aneurysm) Maternal Grandmother Breast cancer Paternal Grandfather Throat cancer Paternal Grandmother CVA (cerebral vascular accident) Brother Multiple sclerosis HTN (hypertension) Social History Housing: House Alcohol intake: current Alcohol intake frequency: a few times a month Patient Tobacco Use Status: Never used Tobacco e-Cigarette/Vaping Use: Never Used Second Hand Smoke Exposure: No service: No Current occupational status: employed 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 1. Little interest or pleasure in doing things: not at all 2. Feeling down, depressed, or hopeless: not at all 3. Trouble falling or staying asleep, or sleeping too much: not at all 4. Feeling tired or having little energy: not at all 5. Poor appetite or overeating: not at all 6. Feeling bad about yourself - or that you are a failure or have let yourself or your family down: not at all 7. Trouble concentrating on things, such as reading the newspaper or watching television: not at all 8. Moving or speaking so slowly that other people could have noticed. Or the opposite - being so fidgety or restless that you have been moving around a lot more than usual: not at all 9. Thoughts that you would be better off or of hurting yourself in some way: not at all Total score: 0 Depression Screening Interpretation: Negative Depression Screening Done: Yes 98249 - PHQ-9 Billing: Yes Source: Developed by Drs. Pedro Resendez, Celina Quijano, Francisco Root and colleagues, with an educational batool from [employer] Thrive Questionnaire Date Thrive assessed: 08/20/25 I am a: Patient What is your living situation today?: I have a steady place to live Within the past 12 months, did the food you bought not last and you didn't have the money to get more?: Never true Within the past 12 months, did you worry whether your food would run out before you got money to buy more?: Never true Do you have trouble paying for medicines?: No Do you have trouble getting transportation to medical appointments?: No Do you have trouble paying your heating and electricity bill?: No Do you have trouble taking care of your child, family member or friend?: No Do you have trouble with day-to-day activities such as bathing, preparing meals, shopping, managing finances, etc.?: No Are you currently unemployed and looking for a job?: No Are you interested in more education?: No Please select the resources that you would like help with: None Currently or been in a relationship where the following occur: No concerns reported THRIVE Score: 0 HEBERT-7 AMB Questionnaire HEBERT-7 Date HEBERT - 7 assessed: 08/20/25 Feeling nervous, anxious, or on edge: 0 = Not at all Not being able to stop or control worryin = Not at all Worrying too much about different things: 0 = Not at all Trouble relaxin = Not at all Being so restless that it is hard to sit still: 0 = Not at all Becoming easily annoyed or irritable: 0 = Not at all Feeling afraid as if something awful might happen: 0 = Not at all Total HEBERT-7 score (0-4 normal; 5-9 mild; 10-14 moderate; 15-21 severe): 0 Source: Developed by Drs. Pedro Resendez, Celina Quijano, Francisco Root and colleagues, with an educational batool from [employer] HEBERT-7 Assessment Billing HEBERT-7 Assessment Tool: HEBERT-7 Assessment 63958 Physical exam (Primary Care) Vital Signs: Last Vital Signs Temp 97.2 F 08/20/25 14:54 Pulse 86 08/20/25 14:54 Resp 13 08/20/25 14:54 BP 118/68 08/20/25 14:54 Pulse Ox 96 08/20/25 14:54 Oxygen Delivery Method Room Air 08/20/25 14:54 BMI result Body Mass Index 31.9 Tobacco/Smoking Status: Tobacco use Status Tobacco use date assessed 08/20/25 08/20/25 14:54 Patient Tobacco Use Status Never used Tobacco 08/20/25 14:51 e-Cigarette/Vaping Use Never Used 08/20/25 14:51 PHQ-9: PHQ-9 Score PHQ-9: Total score 0 08/20/25 15:46 Depression Screening Interpretation: Negative Thrive Assessment: Date of Thrive Assessment Date Thrive assessed 08/20/25 08/20/25 14:51 Currently or been in a relationship where the following occur: No concerns reported Office Procedures Flu Questionnaire Does the patient have a severe egg allergy?: No Does the patient have severe life threatening allergies?: No Does the patient have a fever or illness today?: No Has the patient ever had Guillain-[place] Syndrome?: No Has the patient ever had any past reaction to a flu shot?: No Immunizations Fluarix [id number] (PF) 45 mcg (15 mcg x 3)/0.5 mL IM syringe Performing Provider: LITA Mcgee Performing Location[place] [facility] Administered by: Elvis Chicas MA on 08/20/25 15:46 2 Dose Route Admin Location Dispensed Lot Number Expiration Date [facility] 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 0.5 mL IM Left Deltoid 0.5 mL [id number] 05/05/26 [id number] [employer] 2 VIS Given Date VIS Provided VIS Publication Date 08/20/25 Single Vaccine 24 Eligibility Eligibility Date Funding Source Not [facility] Eligible 08/20/25 Private Results Reviewed Results Reviewed: 3 Laboratory 08/20/25 Result Units Range Interpretation Provider Comments Sodium Level 144 mmol/L (135-145) Potassium Level 3.8 mmol/L (3.3-5.1) Chloride Level 111 mmol/L (96-108) High Carbon Dioxide Level 25 mmol/L (22-29) Anion Gap 12 (12-20) Blood Urea Nitrogen 17 mg/dL (9-16) High Creatinine 0.81 mg/dL (0.5-1.4) Estimated Creatinine Clearance Calc Not Reportable Estimat Glomerular Filtration Rate > 60 Random Glucose 90 mg/dL (60-115) Calcium Level 9.6 mg/dL (8.4-10.2) Total Bilirubin 0.9 mg/dL (0.0-1.0) Aspartate Amino Transf (AST/SGOT) 27 U/L (5-31) Alanine Aminotransferase (ALT/SGPT) 33 U/L (0-31) High Alkaline Phosphatase 81 U/L (39-117) Total Protein 7.2 g/dL (6.5-8.0) Albumin 4.3 g/dL (3.5-5.0) Triglycerides Level 97 mg/dL (<150) Cholesterol Level 205 mg/dL (<200) High LDL Cholesterol, Calculated 124 mg/dL (<100) High HDL Cholesterol 62 mg/dL (>40) Coding Level of Care Code Est Pt Level 5 (40550) Complex EM visit Add On G2211 Diagnoses Right hip pain M25.551 Right thigh pain M79.651 Essential hypertension I10 Dyslipidemia E78.5 Chest pain, unspecified type R07.9 Chest pain type: unspecified Moderate episode of recurrent major depressive disorder F33.1 Major depression recurrence: recurrent Active/Remission status: currently active Major depression episode severity: moderate RADHA (obstructive sleep apnea) G47.33 GERD (gastroesophageal reflux disease) K21.9 Dimitry's disease E06.3 Osteopenia after menopause M85.80; Z78.0 Additional Codes HEBERT-7 Assessment Billing - HEBERT-7 Assessment Tool: HEBERT-7 Assessment 21623 ([id number]) PHQ-9 - 33899 - PHQ-9 Billing: Yes ([id number]) Assessment & Plan Assessment & Plan (1) Right hip pain: Code(s): M25.551 - Pain in right hip Category: Medical (2) Right thigh pain: Code(s): M79.651 - Pain in right thigh Category: Medical (3) Essential hypertension: Comment: Goal < 130/80 at this time cont 5mg Code(s): I10 - Essential (primary) hypertension Category: Medical (4) Dyslipidemia: Comment: Improvement in Lipid profile w/o medications LDL Goal < 70 Cont to monitor start citrus bergomot Code(s): E78.5 - Hyperlipidemia, unspecified Category: Medical (5) Chest pain: Code(s): R07.9 - Chest pain, unspecified Category: Medical Qualifiers: Chest pain type: unspecified Qualified Code(s): R07.9 - Chest pain, unspecified (6) MDD (major depressive disorder): Comment: Active with a counselor. Continue cymbalta 40mg QD. Cont w/ counselor. Code(s): F32.9 - Major depressive disorder, single episode, unspecified Category: Medical Qualifiers: Major depression recurrence: recurrent Active/Remission status: c urrently active Major depression episode severity: moderate Qualified Code(s): F33.1 - Major depressive disorder, recurrent, moderate (7) RADHA (obstructive sleep apnea): Comment: 05/2025 Sleep study mild RADHA Trial CPAP DME [facility] Compliance done 08/20/25 Code(s): G47.33 - Obstructive sleep apnea (adult) (pediatric) Category: Medical (8) GERD (gastroesophageal reflux disease): Code(s): K21.9 - Gastro-esophageal reflux disease without esophagitis Category: Medical (9) Dimitry's disease: Comment: Previously: Normal TSH & Vit D levels Vit D level > 40 on supplement, will have her d/c and will cont to monitor. Cont monitoring - results pending VIt D Code(s): E06.3 - Autoimmune thyroiditis Category: Medical (10) Osteopenia after menopause: Comment: dexa 2017 femoral neck osteopenia dexa 12/2023 osteopenia with normal Ca and Vit D levels. Recheck in 2025, cont wt bearing movements Code(s): M85.80 - Other specified disorders of bone density and structure, unspecified site; Z78.0 - Asymptomatic menopausal state Category: Medical Plan . Orders: Orders 2 PT Evaluation and Treatment Today M25.551 - Pain in right hip, M79.651 - Pain in right thigh Comprehensive Met. Panel 6 Months E06.3 - Autoimmune thyroiditis, E78.5 - Hyperlipidemia, unspecified, I10 - Essential (primary) hypertension, M85.80 - Other specified disorders of bone density and structure, unspecified site, Z78.0 - Asymptomatic menopausal state Lipid Panel 6 Months E06.3 - Autoimmune thyroiditis, E78.5 - Hyperlipidemia, unspecified, I10 - Essential (primary) hypertension, M85.80 - Other specified disorders of bone density and structure, unspecified site, Z78.0 - Asymptomatic menopausal state TSH reflex Free T4 6 Months E06.3 - Autoimmune thyroiditis, E78.5 - Hyperlipidemia, unspecified, I10 - Essential (primary) hypertension, M85.80 - Other specified disorders of bone density and structure, unspecified site, Z78.0 - Asymptomatic menopausal state Vitamin B12 and Folate 6 Months E06.3 - Autoimmune thyroiditis, E78.5 - Hyperlipidemia, unspecified, I10 - Essential (primary) hypertension, M85.80 - Other specified disorders of bone density and structure, unspecified site, Z78.0 - Asymptomatic menopausal state Vitamin D 25-OH Total 6 Months E06.3 - Autoimmune thyroiditis, E78.5 - Hyperlipidemia, unspecified, I10 - Essential (primary) hypertension, M85.80 - Other specified disorders of bone density and structure, unspecified site, Z78.0 - Asymptomatic menopausal state NM cardiolite stress test Today E78.5 - Hyperlipidemia, unspecified, I10 - Essential (primary) hypertension, R07.9 - Chest pain, unspecified MR femur RT wo con Today M79.651 - Pain in right thigh Influenza [id number] Immunization Today Z23 - Encounter for immunization Complete Blood Count no Diff 6 Months E06.3 - Autoimmune thyroiditis, E78.5 - Hyperlipidemia, unspecified, I10 - Essential (primary) hypertension, M85.80 - Other specified disorders of bone density and structure, unspecified site, Z78.0 - Asymptomatic menopausal state Hemoglobin A1c 6 Months E06.3 - Autoimmune thyroiditis, E78.5 - Hyperlipidemia, unspecified, I10 - Essential (primary) hypertension, M85.80 - Other specified disorders of bone density and structure, unspecified site, Z78.0 - Asymptomatic menopausal state Microalbumin, Random (w Creat) 6 Months E06.3 - Autoimmune thyroiditis, E78.5 - Hyperlipidemia, unspecified, I10 - Essential (primary) hypertension, M85.80 - Other specified disorders of bone density and structure, unspecified site, Z78.0 - Asymptomatic menopausal state Medications: New 2 omeprazole 20 mg PO DAILY 90 caps 2RF Refilled 2 lisinopril 5 mg PO DAILY 90 tabs 1RF Discontinued 2 lansoprazole Discontinued Reason: Patient Completed Course 15 mg PO DAILY 90 caps 1RF
[2025-08-20 14:54] VITALS: BP 118/68; PULSE 86; RESP 13; TEMP 36.2; O2SAT 96; BMI 31.9
--- OUTSIDE RECORDS SUMMARY | 2025-08-20 18:32 | XMS_ITS | Data Portability ---
Author Organization [place] - [facility], Allergy Address [address] [address] Care Team Providers Care Cell Coverer Name Role Phone BITA KIM Primary Care [...] to read at home, which gives a pqcf-sd-vqie discussion on what causes migraine and how [...] Organization Details Recorded Time Dizziness and giddiness 175667966 Active 2015 Dizziness and giddiness; Note: Date Diagnosed: 07/06/2016 10:32 AM (R42) Not Available [facility] 4 03:24:16 Chronic pansinusi tis 05534645 Active 2019 Chronic pansinusit is; Note: Date Diagnosed: 08/14/2020 3:11 PM (J32.4) Not Available [facility] 4 03:24:16 Tension-t ype headache 027818316 Active 2019 Tension-ty pe headache, unspecifie d, not intractabl e; Note: Date Diagnosed: 09/16/2020 9:49 AM (G44.209) Not Available [facility] 4 03:24:16 Abnormal auditory perceptio n 86366679 Active 2021 Other abnormal auditory perception s, bilateral; Note: Date Diagnosed: 08/08/2022 4:33 PM (H93.293) Not Available [facility] 4 03:24:16 Problem Notes None recorded. Medical Equipment None Reported. Allergies Allergen ID Allergen Name Allergen Category Reaction Reaction Severity Criticality Documentation Date Start Date Code Code System Note Provider Name and Address Organization Details Recorded Time 841384 penicilli n V potassium medicatio n other Not available Not available 03/19/202438446 5 RxNorm React ion: unkno wn, unspe cifie d;; Not Available [facility] 4 01:23:06 880267 Substance with sulfonami de structure and antibacte rial mechanism of action (substanc e) medicatio n other Not available Not available 03/19/2024 78475 8003 SNOMED React ion: unkno wn, unspe cifie d;; Not Available [facility] 4 01:23:07 Medications Name Sig Start Date Stop Date Status Note LastModified by Organization Details LastModified Time cetirizin e 10 mg tablet 04/07 completed Medicati on ID: [id number] B rand Name: nitin lewis Send Method: [...] Updated DateTime 04/07/2025 165.1 cm 31.1 kg/m2 99069.77 g [facility] 04/07/2025 13:22:11 Social History None recorded. Functional Status None recorded. Mental Status None recorded. Family History Nothing Reported. Medical History No medical history recorded. Gynecological HistoryNo gynecological history recorded. Obstetrics History GPAL:G 0 P 0 0 0 0 Past Encounters Encounter ID Performer Location Encounter Start Date Encounter Closed Date Diagnosis/Indication Diagnosis SNOMED-CT Code Diagnosis ICD10 Code Diagnosis IMO Codes Diagnosis Note [id number] JT FLORES MD [facility] [address] [address] 04/07/2025 13:17:11 04/07/2025 13:39:47 Tension-type headache 797955027 G44.209 Health Concerns Section Related Observation LastModified by Organization Detai ls LastModified Time None Recorded Concern Status LastModified by Organization Details LastModified Time None Recorded Advance Directives Directive None Recorded Payers Insurance Date Sequence Insurance Name Policy Number Policy Wilson Covered Member ID Wilson Member ID Guarantor Name 04/08/2025 1 [facility] [id number] Pham Vu [id number] Pham Cabrera Renzulli 04/08/2025 1 [facility] [id number] Pham Cabrera Renzulli [id number] Pham Vu Notes Date Note Type Note Provider Name and Address Organization Details Recorded Time 04/07/2025 text/html ROS as noted in the HPI sinusfeels like ears are underwaterfeels imbalance with sensation of sand movement sound both earsPND at night with facial pressurewas given abx with PCP with no reliefgetting [facility] [id number] 7-8 hours per nightHome PSG - 'marginal', another Home PSG scheduled later this month 09/10[facility]2020 [facility], mild [facility] mucosa thickening PV 08/08/22 [place] fullness of ears, nasal drip, normal exam. 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
--- OUTSIDE RECORDS SUMMARY | 2025-08-20 18:33 | XMS_ITS | Clinical Summary ---
Author Organization [facility] Address [address] [place] [address] Care Team Providers Care Supervisor Logging Name Role Phone Cira Toussaint MD Primary [...] 2042 Zoster Vaccines Completed 09/09/2024, 06/04/2024 Insurance [facility] HMO/POS Care Teams Supervisor Logging Relationship Specialty Start Date End Date Cira Toussaint MD [address] [place] [address] PCP - General Internal Medicine 04/23/20
--- OUTSIDE RECORDS SUMMARY | 2025-08-20 18:33 | XMS_ITS | Clinical Summary ---
Author Organization [facility] Address [address] [place] [address] Phone Care Team Providers Care Renal Dialysis Technician Name Role Phone Cira Toussaint MD Primary [...] topic Medical Devices Not on file Insurance [facility] PH[facility] Care Teams Renal Dialysis Technician Relationship Specialty Start Date End Date Cira Toussaint MD [address] [place] [address] PCP - General Internal Medicine 02/09/21 Additional Source Comments The information contained in this document represents components of the legal health record. It is not the complete legal health record.[facility]
== END 2025-08-20 15:51 | disposition home or self-care (01) ==
LOC: HO.HMCFM 14:50
PROVIDERS: PCP Nurse Practitioner Family; Visit Provider Nurse Practitioner Family
DX: R07.9 Chest pain, unspecified (principal); F33.1 Major depressive disorder, recurrent, moderate; M25.551 Pain in right hip; M79.651 Pain in right thigh; I10 Essential (primary) hypertension; E78.5 Hyperlipidemia, unspecified; G47.33 Obstructive sleep apnea (adult) (pediatric); K21.9 Gastro-esophageal reflux disease without esophagitis; E06.3 Autoimmune thyroiditis; M85.80 Other specified disorders of bone density and structure, unspecified site; Z78.0 Asymptomatic menopausal state; Z23 Encounter for immunization

== ENCOUNTER 2025-09-17 15:40 | Outpatient (REF) | payer BC, SELFPAY ==
--- NOTE | ~2025-09-17 | MR_ITS ---
Examination: MRI of the femur was performed without and with IV contrast. TECHNIQUE: Multiplanar multisequence imaging was performed through the lower extremity, without with IV contrast, right thigh Contrast: February 5 mL Gadavist INDICATION: Anterior thigh pain with palpable mobile mass. First noticed in June after hiking. COMPARISON: X-ray from 07/28/2025 FINDINGS: A fiducial markers placed of the anterior thigh in the region where there complains of a palpable mass. There is no mass. There is no fluid collection. There is no pathological enhancement. There is physiologic signal in the muscle without atrophy, edema, fatty streaking, hyperenhancement or transfacial herniation. There is abnormal signal in the distal gluteus minimus and medius tendons. They demonstrate peritendinous edema with hyperenhancement. There is linear fluid signal across the anterior superior labrum. Bone marrow signal is physiologic. There are no marrow replacing lesions. There is no adenopathy. Major neurovascular bundles are within normal limits. Pelvic contents is grossly normal. MR/MR femur RT wo/w con Impression: Partial tear/tendinopathy involving distal right gluteus medius and minimus tendons. Anterior superior right hip labral tear. No sign of a mass, muscle strain, or muscle herniation. Electronically signed by: Elton Faith MD 09/17/2025 06:02 PM MARGARITA
--- OUTSIDE RECORDS SUMMARY | 2025-09-17 18:44 | XMS_ITS | Patient Health Record ---
Author Organization [facility] Address [address] [facility] [place] [address] Care Team Providers Care Nursing Secretary Name Role Phone Breana MCCOY, Cira Bonner Primary Care Provider Un available Cale Figueroa Unavailable [phone] Allergies Allergen (clinical drug ingredient) Drug/Non Drug [...] Status Risk Notes Problem Plantar fascial fibromatosis (74984958) Plantar fascial fibromatosis (M72.2) Active confirmed Plan Of Treatment Pending Test Test Name Order Date ,[id number] TENDON SHEATH/LIGAMENT 0 12/30/2016,[id number] TENDON SHEATH/LIGAMENT 0 04/23/2020 Insurance Providers Payer Name Payer Address Payer Phone Subscriber Number Group Number Insured Name Patient Relationship to Insured Coverage Start Date Coverage End Date Blue Benefits [address] [address] [place] [address] [id number] Pham Vu Self - patient is the insured Medical (General) History Medical History History ICD Code Arthritis Back,Hip,and Knee pain Headaches Reflux ( GERD) - Hiatal hernia Chicken pox Surgical History Surgery Date(Month/Year) Gall Bladder Removed [phone]
--- OUTSIDE RECORDS SUMMARY | 2025-09-17 18:44 | XMS_ITS | Clinical Summary ---
Author Organization [facility] Address [address] [place] [address] Care Team Providers Care Transportation Attendant Name Role Phone Cira Toussaint MD Primary [...] (2 - Td or Tdap) 10/17/2029 10/17/2019 Zoster Vaccines Completed 09/09/2024, 06/04/2024 Insurance [facility] H[facility] Care Teams Transportation Attendant Relationship Specialty Start Date End Date Cira Toussaint MD [address] [place] [address] PCP - General Internal Medicine 04/23/20
--- OUTSIDE RECORDS SUMMARY | 2025-09-17 18:44 | XMS_ITS | Clinical Summary ---
Author Organization [facility] Address [address] [place] [address] Phone Care Team Providers Care Chinese Teacher Name Role Phone Cira Toussaint MD Primary [...] on patient's age to complete this topic IPV VACCINES Aged Out No longer eligi ble based on patient's age to complete this topic MENINGOCOCCAL VACCINES (ACWY) Aged Out No longer eligible based on patient's age to complete this topic MENINGOCOCCAL VACCINES (B) Aged Out N o longer eligible based on patient's age to complete this topic Medical Devices Not on file Insurance [facility] PPO [place]CS [id number] [place] [id number] [place] [address] [place] [phone] [place] [address] [facility] [address] Care Teams Chinese Teacher Relationship Specialty Start Date End Date Cira Toussaint MD [address] [place] [address] PCP - General Internal Medicine 02/09/21 Additional Source Comments The information contained in this document represents components of the legal health record. It is not the complete legal health record.[facility]
--- OUTSIDE RECORDS SUMMARY | 2025-09-17 18:44 | XMS_ITS | Data Portability ---
Author Organization [place] [facility], Allergy Address [address] [address] Care Team Providers Care Market Investigator Name Role Phone BITA KIM Primary Care Provider [phone] Assessment Encounter Date Assessment Date Assessment LastModified [...] to read at home, which gives a rrjk-tk-klcd discussion on what causes migraine and how [...] Organization Details Recorded Time Dizziness and giddiness 672327223 Active 2015 Dizziness and giddiness; Note: Date Diagnosed: 07/06/2016 10:32 AM (R42) Not Available [facility] 4 03:24:16 Chronic pansinusi tis 85913982 Active 2019 Chronic pansinusit is; Note: Date Diagnosed: 08/14/2020 3:11 PM (J32.4) Not Available [facility] 4 03:24:16 Tension-t ype headache 922261421 Active 2019 Tension-ty pe headache, unspecifie d, not intractabl e; Note: Date Diagnosed: 09/16/2020 9:49 AM (G44.209) Not Available [facility] 4 03:24:16 Abnormal auditory perceptio n 98629937 Active 2021 Other abnormal auditory perception s, bilateral; Note: Date Diagnosed: 08/08/2022 4:33 PM (H93.293) Not Available [facility] 4 03:24:16 Problem Notes None recorded. Medical Equipment None Reported. Allergies Allergen ID Allergen Name Allergen Category Reaction Reaction Severity Criticality Documentation Date Start Date Code Code System Note Provider Name and Address Organization Details Recorded Time 152421 penicilli n V potassium medicatio n other Not available Not available 03/19/202456741 5 RxNorm React ion: unkno wn, unspe cifie d;; Not Available [facility] 4 01:23:06 534987 Substance with sulfonami de structure and antibacte rial mechanism of action (substanc e) medicatio n other Not available Not available 03/19/2024 03057 8003 SNOMED React ion: unkno wn, unspe cifie d;; Not Available [facility] 4 01:23:07 Medications Name Sig Start Date Stop Date Status Note LastModified by Organization Details LastModified Time cetirizin e 10 mg tablet 04/07 completed Medicati on ID: [id number] B rand Name: nitin lewis Send Method: [...] Updated DateTime 04/07/2025 165.1 cm 31.1 kg/m2 06643.77 g [facility] 04/07/2025 13:22:11 Social History None recorded. Functional Status None recorded. Mental Status None recorded. Family History Nothing Reported. Medical History No medical history recorded. Gynecological HistoryNo gynecological history recorded. Obstetrics History GPAL:G 0 P 0 0 0 0 Past Encounters Encounter ID Performer Location Encounter Start Date Encounter Closed Date Diagnosis/Indication Diagnosis SNOMED-CT Code Diagnosis ICD10 Code Diagnosis IMO Codes Diagnosis Note [id number] JT FLORES MD [facility] [address] [address] 04/07/2025 13:17:11 04/07/2025 13:39:47 Tension-type headache 903058956 G44.209 Health Concerns Section Related Observation LastModified by Organization Detai ls LastModified Time None Recorded Concern Status LastModified by Organization Details LastModified Time None Recorded Advance Directives Directive None Recorded Payers Insurance Date Sequence Insurance Name Policy Number Policy Wilson Covered Member ID Wilson Member ID Guarantor Name 04/08/2025 1 [facility] [id number] Pham Vu [id number] Pham Cabrera Renzulli 04/08/2025 1 [facility] [id number] Pham Cabrera Renzulli [id number] Pham Vu Notes Date Note Type Note Provider Name and Address Organization Details Recorded Time 04/07/2025 text/html ROS as noted in the HPI sinusfeels like ears are underwaterfeels imbalance with sensation of sand movement sound both earsPND at night with facial pressurewas given abx with PCP with no reliefgetting [facility] [id number] 7-8 hours per nightHome PSG - 'marginal', another Home PSG scheduled later this month 09/10/2020 [facility], mild sinus mucosa thickening PV 08/08/22 [place] fullness of ears, nasal drip, normal exam. 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
--- OUTSIDE RECORDS SUMMARY | 2025-09-17 18:44 | XMS_ITS | Patient Health Record ---
Author Organization [facility] Address [address] [place] [address] Care Team Providers Care Management Intern Name Role Phone Cheri Crespo Primary Care Provider Pedro Garcia Unavailable [phone] Allergies Allergen (clinical drug ingredient) Drug/Non Drug Allergy documented on EMR Reaction Allergy Type Onset Date Status Sulfa Unknown Drug Allergy Active Penicillin Unknown Drug Allergy Active kiwi , scallops (uncoded) Unknown Allergy Active Reason For Referral No Information Medications Medication SIG (Take, Route, Fr equency, Duration) Notes Start Date End Date Status Omeprazole 20 MG TAKE 1 CAPSULE BY [facility] EVERY DAY; Duration: 30 Active Motrin IB [...] Problem Screening for malignant neoplasm of colon (031835586) Encounter for screening for malignant neoplasm of colon (Z12.11) Active confirmed Problem Nausea (521823890) Nausea (R11.0) Active confir med Problem Gastroesophageal reflux disease with esophagitis (167334355) Gastroesophageal reflux disease with esophagitis (K21.0) Active confirmed Problem Hiatal hernia (06371952) Hiatal hernia (K44.9) Active confirmed Plan Of Treatment Future Test Test Name Order Date UPPER GI ENDOSCOPY 05/17/2018 COLONOSCOPY 05/17/2018 Insurance Providers Payer Name Payer Address Payer Phone Subscriber Number Group Number Insured Name Patient Relationship to Insured Coverage Start Date Coverage End Date [employer] [address] [address] [place] [id number] SIENA SANTILLAN Self - patient is the insured Medical (General) History Medical History History ICD Code Denies [place],DM,CVA,Lung disease,renal dise ase EGD-07/2018 small to moderate -sized hiatal hernia and mild reflux esophagitis, gastric biopsies were negative for H. pylori, and esophageal biopsies were negative for Elias's esophagus Negative screening colonoscopy in 2017 Surgical History Surgery Date(Month/Year) Cholecystectomy 2007 breast biopsy--benign 1999
== END 2025-09-17 15:41 | disposition home or self-care (01) ==
LOC: HO.MRI 15:40
PROVIDERS: PCP Nurse Practitioner Family; Visit Provider Nurse Practitioner Family
DX: M79.651 Pain in right thigh (principal)
CPT/HCPCS: 73720; A9585

== ENCOUNTER → 2025-09-17 15:47 | Outpatient (BNV) | payer BC, SELFPAY | PROVIDERS: PCP Nurse Practitioner Family; Visit Provider Radiology Diagnostic Radiology | DX: M79.651 Pain in right thigh (principal) | CPT/HCPCS: 73720 ==

== ENCOUNTER 2025-10-29 13:10 | Outpatient (AMB) | payer BC, SELFPAY ==
--- OUTSIDE RECORDS SUMMARY | 2025-10-29 13:13 | XMS_ITS | Clinical Summary ---
Author Organization [facility] Address [address] [place] [address] Care Team Providers Care Resolution Analyst Name Role Phone Cira Toussaint MD Primary [...] ual Screening 11/06/2024 Influenza Vaccine (#1) 2025 4, 07/31/2023, 08/28/2022, Additional history exists COVID-19 Vaccine (2024-2 6 season) 2025 09/06/2021, 12/16/2020, 11/18/2020 DTaP,Tdap,and Td Vaccines (2 - Td or Tdap) 10/17/2029 10/17/2019 Zoster Vaccines Completed 09/09/2024, 06/04/2024 Insurance [facility] HMO/POS Care Teams Resolution Analyst Relationship Specialty Start Date End Date Cira Toussaint MD [address] [place] [address] PCP - General Internal Medicine 04/23/20
--- OUTSIDE RECORDS SUMMARY | 2025-10-29 13:13 | XMS_ITS | Patient Health Record ---
Author [facility] Address [address] [facility] [place] [address] Care Team Providers Care Can Worker Name Role Phone Breana MCCOY, Cira Bonner Primary Care Provider Un available Cale Figueroa Unavailable [phone] Allergies Allergen (clinical drug ingredient) Drug/Non Drug [...] Status Risk Notes Problem Plantar fascial fibromatosis (12717250) Plantar fascial fibromatosis (M72.2) Active confirmed Plan Of Treatment Pending Test Test Name Order Date ,[id number] TENDON SHEATH/LIGAMENT 0 12/30/2016,[id number] TENDON SHEATH/LIGAMENT 0 04/23/2020 Insurance Providers Payer Name Payer Address Payer Phone Subscriber Number Group Number Insured Name Patient Relationship to Insured Coverage Start Date Coverage End Date Blue Benefits [address] [address] [place] [address] [id number] Pham Vu Self - patient is the insured Medical (General) History Medical History History ICD Code Arthritis Back,Hip,and Knee pain Headaches Reflux ( GERD) - Hiatal hernia Chicken pox Surgical History Surgery Date(Month/Year) Gall Bladder Removed [phone]
--- OUTSIDE RECORDS SUMMARY | 2025-10-29 13:13 | XMS_ITS | Patient Health Record ---
Author Organization [facility] Address [address] [place] [address] Care Team Providers Care Link Trainer Maintenance Worker Name Role Phone Cheri Crespo Primary Care Provider Pedro Garcia Unavailable [phone] Allergies Allergen (clinical drug ingredient) Drug/Non Drug Allergy documented on EMR Reaction Allergy Type Onset Date Status kiwi , scallops (uncoded) Unknown Allergy Active Penicillin Unknown Drug Allergy Active Sulfa Unknown Drug Allergy Active Reason For Referral No Information Medications Medication SIG (Take, Route, Frequency, Duration) Notes Start Date End Date Status Omeprazole 20 MG Capsule Delayed Release TAKE 1 CAPSULE BY MOUTH EVERY DAY; Duration: 30 Active Motrin IB 200 MG Tablet 1 tablet with fo od or milk as needed Orally Three times a day Active Immunizations Vaccine Route Administration Date Status Comme nts Influenza Unknown 08/28/2018 Administered Social History Tobacco Use: Social History Observation Description Date Details (start date - stop date) Never Smoker NA - NA Social History Drugs/Alcohol: Social Info Question Answer Notes Alcohol Screen Did you have a drink containing alcohol in the past year? Yes How often did you have a drink containing alcohol in the past year? 2 to 4 times a month (2 points) How many drinks did you have on a typical day when you were drinking in the past year? 1 or 2 drinks (0 point) How often did you have 6 or more drinks on one occasion in the past year? 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 Section Notes: Nonsmoker; no sig alcohol Nonsmoker; no sig alcohol Problems Problem Type SNOMED Code ICD Code Onset Dates Problem Status W/U Status Risk Notes Problem Screening for malignant neoplasm of colon (206037624) Encounter for screening for malignant neoplasm of colon (Z12.11) Active confirmed Problem Nausea (545618104) Nausea (R11.0) Active confir med Problem Gastroesophageal reflux disease with esophagitis (442959319) Gastroesophageal reflux disease with esophagitis (K21.0) Active confirmed Problem Hiatal hernia (76736811) Hiatal hernia (K44.9) Active confirmed Plan Of Treatment Future Test Test Name Order Date UPPER GI ENDOSCOPY 05/17/2018 COLONOSCOPY 05/17/2018 Insurance Providers Payer Name Payer Address Payer Phone Subscriber Number Group Number Insured Name Patient Relationship to Insured Coverage Start Date Coverage End Date R [address] [address] [place] [address] [id number] SIENA SANTILLAN Self - patient is the insured Medical (General) History Medical History History ICD Code Denies [place],DM,CVA,Lung disease,renal dise ase EGD-07/2018 small to moderate -sized hiatal hernia and mild reflux esophagitis, gastric biopsies were negative for H. pylori, and esophageal biopsies were negative for Elias's esophagus Negative screening colonoscopy in 2017 Surgical History Surgery Date(Month/Year) Cholecystectomy 2006 breast biopsy--benign 1999
--- OUTSIDE RECORDS SUMMARY | 2025-10-29 13:13 | XMS_ITS | Data Portability ---
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 Name Role Phone BITA KIM Primary Care [...] to read at home, which gives a [id number] discussion on what causes migraine and how [...] Organization Details Recorded Time Dizziness and giddiness 858464319 Active 2015 Dizziness and giddiness; Note: Date Diagnosed: 07/06/2016 10:32 AM (R42) Not Available [facility] 4 03:24:16 Chronic pansinusi tis 04972168 Active 2019 Chronic pansinusit is; Note: Date Diagnosed: 08/14/2020 3:11 PM (J32.4) Not Available [facility] 4 03:24:16 Tension-t ype headache 885324458 Active 2019 Tension-ty pe headache, unspecifie d, not intractabl e; Note: Date Diagnosed: 09/16/2020 9:49 AM (G44.209) Not Available [facility] 4 03:24:16 Abnormal auditory perceptio n 64145894 Active 2021 Other abnormal auditory perception s, bilateral; Note: Date Diagnosed: 08/08/2022 4:33 PM (H93.293) Not Available [facility] 4 03:24:16 Problem Notes None recorded. Medical Equipment None Reported. Allergies Allergen ID Allergen Name Allergen Category Reaction Reaction Severity Criticality Documentation Date Start Date Code Code System Note Provider Name and Address Organization Details Recorded Time 957478 penicilli n V potassium medicatio n other Not available Not available 03/19/202486592 5 RxNorm React ion: unkno wn, unspe cifie d;; Not Available [facility] 4 01:23:06 852426 Substance with sulfonami de structure and antibacte rial mechanism of action (substanc e) medicatio n other Not available Not available 03/19/2024 97037 8003 SNOMED React ion: unkno wn, unspe cifie d;; Not Available [facility] 4 01:23:07 Medications Name Sig Start Date Stop Date Status Note LastModified by Organization Details LastModified Time cetirizin e 10 mg tablet 04/07 completed Medicati on ID: [id number] B rand Name: nitin lewis Send Method: [...] Updated DateTime 04/07/2025 165.1 cm 31.1 kg/m2 23388.77 g [facility] 04/07/2025 13:22:11 Social History None recorded. Functional Status None recorded. Mental Status None recorded. Family History Nothing Reported. Medical History No medical history recorded. Gynecological HistoryNo gynecological history recorded. Obstetrics History GPAL:G 0 P 0 0 0 0 Past Encounters Encounter ID Performer Location Encounter Start Date Encounter Closed Date Diagnosis/Indication Diagnosis SNOMED-CT Code Diagnosis ICD10 Code Diagnosis IMO Codes Diagnosis Note [id number] JT FLORES MD [facility] [address] [address] 04/07/2025 13:17:11 04/07/2025 13:39:47 Tension-type headache 777252783 G44.209 Health Concerns Section Related Observation LastModified by Organization Detai ls LastModified Time None Recorded Concern Status LastModified by Organization Details LastModified Time None Recorded Advance Directives Directive None Recorded Payers Insurance Date Sequence Insurance Name Policy Number Policy Wilson Covered Member ID Wilson Member ID Guarantor Name 04/08/2025 1 [facility] [place] [id number] Pham Vu [id number] Pham Cabrera Renzulli 04/08/2025 1 [facility] [id number] Pham Cabrera Renzulli [id number] Pham Vu Notes Date Note Type Note Provider Name and Address Organization Details Recorded Time 04/07/2025 text/html ROS as noted in the HPI sinusfeels like ears are underwaterfeels imbalance with sensation of sand movement sound both earsPND at night with facial pressurewas given abx with PCP with no reliefgetting [facility] [id number] 7-8 hours per nightHome PSG - 'marginal', another Home PSG scheduled later this month 09/10/2020 [facility], mild sinus mucosa thickening PV 08/08/22 [place] fullness of ears, nasal drip, normal exam. 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
--- OUTSIDE RECORDS SUMMARY | 2025-10-29 13:13 | XMS_ITS | Clinical Summary ---
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 Name Role Phone Cira Toussaint MD Primary [...] topic Medical Devices Not on file Insurance [facility] Care Teams Two Needle Machine Operator Relationship Specialty Start Date End Date Cira Toussaint MD [address] [facility] [place] [address] PCP - General Internal Medicine 02/09/21 Additional Source Comments The information contained in this document represents components of the legal health record. It is not the complete legal health record.[facility]
--- NOTE | 2025-10-29 13:24 | A.OFFPC_ITS ---
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: No Is last menstrual period known: No Post menopausal: No Patient : No Allergies kiwi (KIWI) Allergy (Unknown, Verified 10/29/25 13:32) SHORTNESS OF BREATH Penicillins (PENICILLINS) Allergy (Unknown, Verified 10/29/25 13:32) RASH scallops (SCALLOPS) Allergy (Unknown, Verified 10/29/25 13:32) SHORTNESS OF BREATH Sulfa (Sulfonamide Antibiotics) (Sulfa(Sulfonamide Antibiotics)) Allergy (Unknown, Verified 10/29/25 13:32) UNKNOWN, rash, rash Medication List - Last Reconciled 10/29/25 by Cheri Crespo, SCADA OPERATOR- duloxetine 40 mg (2 x 20 mg) PO DAILY 3 months estradiol 0.01%(0.1mg/gram) 1 g vaginal 2XW ibuprofen 800 mg PO TID PRN lisinopril 5 mg PO DAILY omeprazole 20 mg PO DAILY Tobacco use date assessed: 10/29/25 Dental Screening Dental Screen Date: 10/29/25 Did you have a dental visit in the last 12 months?: Yes Did you have a dental problem in the last 6 months where you did not have access to dental care?: No Was dental information given to patient?: Patient has dentist HPI HPI Comments History of Present Illness Details 60-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 - Her daughter, Aneta, gave to 2 nd child, Son Nov. 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 Optho - has q 6 mo visual field testing Neuro and MRI at [facility] annually. Health maintenance Colonoscopy 2017 Dr. Cuello with hyperplastic polyp, repeat 10 years 2027 Mammogram 12/20/23 BI-RADS BI-RADS 1 - Negative, will call to schedule Pap 01/09/23 WNL DEXA 12/29/23 Osteopenia (repeat in 2 years) Tdap and Flu 08/20/25 Liver Elastography: Hepatic Steotosis otherwise WNL History of Present Illness The patient is a 60 year old female presenting with headache and sinus pressure. Acute Sinusitis: - The patient reports the onset of heada regina and sinus pressure over the weekend, which has remained stable in severity. - She notes waking with greenish, yellow , and bloody nasal discharge. - Associated symptoms include a feeling of fullness in both ears, though it is not severe. - She denies fever and chills. - Kjin-nta-cmlfywe Sudafed has provided some symptom relief. - Her medical history is significant for a penicillin allergy. Past Medical History - Penicillin allergy - Recurrent strep throat, previously albert ated with cefaclor. - Influenza with pneumonia in the past y ear. - COVID-19 infection after Thanksgiving. Review of Systems - Constitutional: Denies fever and chill s. 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 - Ears: Reports bilateral ear fullness. - Nose: Reports greenish, yellow, bloody nasal discharge in the mornings. - Throat: Denies sore throat. Physical Exam General: Well developed, well nourished, in no acute distress. Appears stated age. Head: Normocephalic, atraumatic. Eyes: Pupils are equal, round and reactive to light and accommodation. Conjunctivae are clear. Vision grossly normal. Ears: TM intact mild clouding bilat Nose: Congested, purulent dc right nares, pansinus TTP Pharynx: Mild erythema Lungs: Clear to auscultation bilaterally. No rales, rhonchi or wheeze noted. Good air flow in all vivar. Heart: Regular rate and rhythm. No murmurs, click, rubs or gallops are noted. Skin: PWD Psych: Mood and affect appropriate. Medical Decision Making The patient is a 60-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 who presents with symptoms consistent with acute sinusitis, including headache, sinus pressure, and purulent nasal discharge, which started over the weekend. She has tenderness to palpation over her sinuses, worse on the right. Given her known penicillin allergy, I reviewed her past antibiotic use to select an appropriate therapy. Doxycycline was chosen because it is effective for sinusitis and she has not taken it in some time. A 7-day course was prescribed. I advised her that if symptoms do not improve with the antibiotic course, a viral etiology is likely. Plan 1. Acute Sinusitis - The patient's presentation of headache , sinus pressure, purulent nasal discharge, and sinus tenderness is consistent with acute bacterial sinusitis. - Due to a penicillin allergy, doxycycli ne was selected for treatment, as it is effective and has not been used recently by the patient. - Prescribed doxycycline one tablet twic e a day for seven days. - The prescription will be sent to [facility] in [place]. - The patient was counseled that if symp toms do not resolve with antibiotics, a viral cause is likely. Patient Instructions - Take doxycycline one tablet twice a da y for seven days. - You can take this medication with or w ithout food. - Your prescription has been sent to [facility] in [place]. - If your symptoms do not get better wit h the antibiotic, your illness is likely caused by a virus. - You may drink alcoholic beverages whil e on this medication, but do not take the medication with alcohol. Consent Patient was informed and verbally consented to the use of an ambient scribe for clinic note documentation during this visit. 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 COVID-19 virus infection Dyslipidemia Elevated liver enzymes Essential hypertension Flu-like symptoms Gastritis Greater trochanteric bursitis of right hip Dimitry's disease History of postmenopausal bleeding Immunity status testing Meningioma Menopause Migraine Mixed hyperlipidemia Myalgia Nephrolithiasis Obesity Pain, joint, multiple sites Psoriasis of scalp Rosacea Screening-pulmonary TB Sleep apnea Syrinx of spinal cord Thyroid nodule Surgical History History of colonoscopy (~2018) Hx laparoscopic cholecystectomy Family History Father Brain hemangioma Mother Hereditary breast and ovarian cancer syndrome associated with mutation in BRCA2 gene AAA (abdominal aortic aneurysm) Maternal Grandmother Breast cancer Paternal Grandfather Throat cancer Paternal Grandmother CVA (cerebral vascular accident) Brother Multiple sclerosis HTN (hypertension) Social History Housing: House Alcohol intake: current Alcohol intake frequency: a few times a month Patient Tobacco Use Status: Never used Tobacco e-Cigarette/Vaping Use: Never Used Second Hand Smoke Exposure: No Patient : No service: No Current occupational status: employed 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 [id number] Current occupational exposures/hazards: No Cognitive needs: No Hearing needs: No Vision needs: Yes Questionnaire Thrive Questionnaire Date Thrive assessed: 02/17/25 I am a: Patient What is your living situation today?: I have a steady place to live Within the past 12 months, did the food you bought not last and you didn't have the money to get more?: Never true Within the past 12 months, did you worry whether your food would run out before you got money to buy more?: Never true Do you have trouble paying for medicines?: No Do you have trouble getting transportation to medical appointments?: No Do you have trouble paying your heating and electricity bill?: No Do you have trouble taking care of your child, family member or friend?: No Do you have trouble with day-to-day activities such as bathing, preparing meals, shopping, managing finances, etc.?: No Are you currently unemployed and looking for a job?: No Are you interested in more education?: No Currently or been in a relationship where the following occur: No concerns reported THRIVE Score: 0 HEBERT-7 AMB Questionnaire HEBERT-7 Date HEBERT - 7 assessed: 08/20/25 Source: Developed by Drs. Pedro Resendez, Celina Quijano, Francisco Root and colleagues, with an educational batool from [employer]. Physical exam (Primary Care) Vital Signs: Last Vital Signs Temp 97.9 F 10/29/25 13:28 Pulse 79 10/29/25 13:28 Resp 16 10/29/25 13:28 BP 133/75 10/29/25 13:28 Pulse Ox 98 10/29/25 13:28 Oxygen Delivery Method Room Air 10/29/25 13:28 BMI result Body Mass Index 31.7 Tobacco/Smoking Status: Tobacco use Status Tobacco use date assessed 10/29/25 10/29/25 13:31 Patient Tobacco Use Status Never used Tobacco 10/29/25 13:31 e-Cigarette/Vaping Use Never Used 10/29/25 13:31 Thrive Assessment: Date of Thrive Assessment Date Thrive assessed 02/17/25 10/29/25 13:31 Currently or been in a relationship where the following occur: No concerns reported Coding Level of Care Code Est Pt Level 3 (25756) Add On Problem Visit Only Diagnoses Acute bacterial sinusitis J01.90; B96.89 Assessment & Plan Assessment & Plan (1) Acute bacterial sinusitis: Code(s): J01.90 - Acute sinusitis, unspecified; B96.89 - Other specified bacterial agents as the cause of diseases classified elsewhere Plan , Medications: New doxycycline hyclate 100 mg PO BID 14 caps 0RF 7 days
[2025-10-29 13:28] VITALS: BP 133/75; PULSE 79; RESP 16; TEMP 36.6; O2SAT 98; BMI 31.7
== END 2025-10-29 13:45 | disposition home or self-care (01) ==
LOC: HO.HMCFM 13:11
PROVIDERS: PCP Nurse Practitioner Family; Visit Provider Nurse Practitioner Family
DX: J01.90 Acute sinusitis, unspecified (principal); B96.89 Other specified bacterial agents as the cause of diseases classified elsewhere